=== PATIENT | male | born 1970 | race Caucasian/White ===

== ENCOUNTER → 2019-11-01 13:43 | Outpatient (BNVA) | payer MEDICARE, SELFPAY | PROVIDERS: Visit Provider Nurse Practitioner Family | DX: J02.9 Acute pharyngitis, unspecified (principal) | CPT/HCPCS: 87070; 87880 ==

== ENCOUNTER → 2019-11-02 11:15 | Outpatient (BNVA) | payer MEDICARE, SELFPAY | PROVIDERS: Visit Provider Nurse Practitioner Family | DX: J02.9 Acute pharyngitis, unspecified (principal); J02.0 Streptococcal pharyngitis | CPT/HCPCS: 87070 ==

== ENCOUNTER 2020-01-03 11:02 | Emergency (ER) | payer MEDICARE, SELFPAY ==
[2020-01-03] VITALS (7 sets, daily range): BP systolic 120–140; BP diastolic 72–85; PULSE 67–82; RESP 18–20; TEMP 36.8; O2SAT 93–95; BMI 31.1
--- NOTE | 2020-01-03 11:12 | ECG_ITS ---
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 Measurements Intervals [place] Rate: 78 P: 37 MN: 217 QRS: 38 QRSD: 94 T: 69 QT: 388 QTc: 443 Interpretive Statements SINUS RHYTHM WITH SINUS ARRHYTHMIA WITH FIRST DEGREE AV BLOCK SEPTAL MYOCARDIAL INFARCTION , OF INDETERMINATE AGE [40+ ms Q WAVE IN V1/V2] No previous ECG available for comparison Electronically Signed On 01-03-2020 18:27:55 CDT by Caitlin Diaz M.D. [id number]
--- NOTE | 2020-01-03 11:12 | XRR_ITS ---
PROCEDURE INFORMATION: Exam: XR Chest, 1 View Exam date and time: 01/03/2020 11:41 AM Age: 49 years old Clinical indication: Left-sided chest pain; Prior surgery; Surgery date: 6+ months; Surgery type: Aortic valve replacent TECHNIQUE: Imaging protocol: XR of the chest Views: 1 view. COMPARISON: No relevant prior studies available. FINDINGS: Tubes, catheters and devices: Atrioventricular pacemaker. Lungs: No acute airspace disease. Pleural space: No pleural effusion. Heart/Mediastinum: Aortic valve replacement. No cardiomegaly. Bones/joints: Median sternotomy. XR/XR chest 1V portable [id number] IMPRESSION: No acute airspace or pleural disease.
[2020-01-03 11:19] LABS: Basophils # 0.1 10^3/uL (0.0-0.1); Basophils % 0.8 %; Eosinophils # 0.2 10^3/uL (0.0-0.8); Eosinophils % 2.2 %; Hematocrit 47.6 % (42.0-52.0); Hemoglobin 15.5 g/dL (11.7-16.6); Lymphocytes # 2.8 10^3/uL (0.8-4.8); Lymphocytes % 36.4 %; Mean Corpuscular HGB Conc 32.6 g/dL (30.0-36.0); Mean Corpuscular Hemoglobin 29.2 pg (28.0-34.0); Mean Corpuscular Volume 89.6 fL (80-94); Mean Platelet Volume 10.6 fL (7.4-10.4); Monocytes # 0.7 10^3/uL (0.2-0.9); Monocytes % 8.6 %; Neutrophils % 51.7 %; Nucleated Red Blood Cells % 0 %; Platelet Count 238 10^3/cmm (130-400); Red Blood Count 5.31 10^6/uL (4.1-5.3); Red Cell Distribution Width 13.1 % (12.1-15.1); White Blood Count 7.7 10^3/uL (4.0-10.0)
[2020-01-03] MEDS: aspirin 81 mg Chew Tablet 324 MG PO (11:27)
[2020-01-03] MEDS: sodium chloride 0.9% 500 ML 999 ML IV (11:27)
[2020-01-03] MEDS: nitroglycerin 0.4 mg sublingual Tablet SUBLINGUAL (11:27)
[2020-01-03 11:29] LABS: INR 1.19 (0.8-1.2)
[2020-01-03 11:35] LABS: Alanine Aminotransferase 39 U/L (0-41); Albumin Level 4.3 g/dL (3.5-5.2); Alkaline Phosphatase 81 IU/L (40-130); Anion Gap 15.5 (5-19); Aspartate Amino Transferase 37 U/L (0-40); Blood Urea Nitrogen 8 mg/dL (6-20); Calcium 10.1 mg/dL (8.5-10.5); Carbon Dioxide 28 mmol/L (22-29); Chloride 94 mmol/L (98-107); Globulin 3.4 g/dL (1.3-4.6); Glomerular Filtration Rate 102.7 mL/min (90-130); Glucose 347 mg/dL (65-115); Lipase 17 U/L (13-60); Osmolality Calculated 288 mOsm/kg (285-295); Potassium 3.5 mmol/L (3.5-5.1); Sodium 134 mmol/L (136-145); Total Bilirubin 0.6 mg/dL (0.15-1.2); Total Protein 7.7 g/dL (6.6-8.7)
--- NOTE | 2020-01-03 11:36 | W.ED.CHESTPA ---
HPI - Chest Pain General: Chief Complaint: Chest Pain Stated Complaint: chest pain Time Seen by Provider: 01/03/20 11:12 History of Present Illness: HPI narrative: Mr. Rosa is a nice 49-year-old male who comes in complaining of intermittent chest pain since yesterday. He has the pain at rest but notes that it is worse when he lifts or does anything with his chest. He describes the pain as a pressure. He denies shortness of breath, but does have nausea. Denies any vomiting but last night had diaphoresis that lasted a good portion of the evening.. He is unaware of any other aggravating or alleviating factors. Patient states his blood pressure was significantly elevated yesterday as well. He denies any other complaints or concerns. This time he states his pain is about a 3 or 4 out of 10. Associated symptoms: Reports nausea; Deny abdominal pain, diaphoresis, dyspnea, fever(s), palpitations, syncope or vomiting Review of Systems Const: Denies: fever(s), chills, body aches, fatigue, malaise or diaphoresis Eyes: Denies: change in vision, blurry vision, blind spots, photophobia, eye discharge or eye redness ENMT: Denies: throat pain, odynophagia, hoarseness, swelling of lips/tongue, oral sores, ear or mastoid pain, ear discharge, change in hearing or nasal discharge Card: Reports: chest pain; Denies: palpitations, irregular heart rhythm, edema, lightheadedness, syncope, pre-syncope, dyspnea on exertion or orthopnea Resp: Denies: dyspnea, productive cough, non-productive cough, wheezing, hemoptysis or chest congestion GI: Reports: nausea; Denies: abdominal pain, vomiting, hematemesis, coffee ground emesis, heartburn, diarrhea, constipation, GI cramping, hematochezia or melena : Denies: flank pain, dysuria, urinary frequency, urinary urgency or hematuria Musc: Denies: neck pain, back pain, extremity pain, extremity swelling, joint pain, joint swelling, joint redness, joint warmth or joint stiffness Skin/Breast: Denies: rash, pruritus, erythema, skin tenderness or jaundice Neuro: Denies: headache(s), numbness in extremities, weakness in extremities, sensory changes, lack of coordination, difficulty walking, dizziness, vertigo, confusion, Slurred speech present or seizure-like activity Ej/Lymph: Denies: easy bruising, easy bleeding, petechiae, purpura or enlarged lymph nodes All/Imm: Denies: urticaria, throat swelling, tongue swelling, facial swelling or acute wheezing PFSH ED PFSH: Medical History (Updated 01/03/20 @ 15:19 by Aubrie Spence) Aortic stenosis DM type 2 (diabetes mellitus, type 2) Hyperlipidemia Hypertension Surgical History (Updated 01/03/20 @ 15:19 by Aubrie Spence) Aortic valve replaced Social History Smoking and tobacco status: never smoked Second hand smoke exposure: No Physical Exam Const: COMMON NORMALS: no acute distress, patient oriented x3, no limitations, healthy appearing and well nourished GENERAL APPEARANCE: cooperative, well kempt and well developed HENMT: COMMON NORMALS: normocephalic, atraumatic, external ears normal, EAC's normal and Normal external nose present HEAD & SCALP: normal to inspection, normocephalic and atraumatic FACE & SINUS: normal facial exam and face symmetric NOSE: Normal external nose present and Normal nares present EXTERNAL EAR: Yes external ears normal EXTERNAL AUDITORY CANAL: EAC's normal MOUTH: Normal oral and palatal mucosa present, lip normal and tongue normal Eye: COMMON NORMALS: Equal, round and reactive pupils present and conjunctivae normal GENERAL EYE: appearance normal, both eyes and all related structures ALIGNMENT: Yes alignment normal PERIORBITAL: periorbital findings normal EYELID: eyelids normal CONJUNCTIVA: Yes conjunctivae normal SCLERA: sclerae normal PUPIL: Yes Equal, round and reactive pupils present Neck/C-Spine: COMMON NORMALS: full ROM, no lymphadenopathy, supple, no meningeal signs and no JVD GENERAL: Yes normal visual inspection and Yes trachea midline Chest: COMMONS NORMALS: normal inspection of the chest and normal palpation of entire chest wall Resp: COMMON NORMALS: normal respiratory effort, No retractions and No use of accessory muscles EFFORT & INSPECTION: Yes able to speak in complete sentences and Yes symmetric chest movement AUSCULTATION: no crackles, no rales, no rhonchi and no wheezes Cardio: COMMON NORMALS: no JVD, regular rate, regular rhythm, S1 normal heart sound present and S2 normal heart sound present RATE: regular rate RHYTHM: regular rhythm HEART SOUNDS: S1 normal heart sound present, S2 normal heart sound present, no click, no gallops, Murmur heart sound present systolic, no rubs and abnormal split S2 GI: COMMON NORMALS: Soft to palpation and No hepatosplenomegaly present PALPATION: Yes Soft to palpation, No Tenderness to palpation present (GI), No Guarding due to palpation present (GI), No Rigid due to palpation, Yes No hepatosplenomegaly present, No Hernia present, No Palpable mass present and No Pulsatile mass present : COMMON NORMALS: Yes no CVA tenderness BLADDER/KIDNEY EXAM: Yes no CVA tenderness Back/Pelvis: COMMON NORMALS: no CVA tenderness, thoracic and lumbar spine normal to inspection, no thoracic nor lumbar tenderness and thoraco-lumbar ROM normal Extremity: COMMON NORMALS: normal to inspection, full ROM, capillary refill normal, no joint enlargement, no clubbing, cyanosis or edema and no calf tenderness Neuro: COMMON NORMALS: patient oriented x3, CN's II-XII intact bilaterally, moves all extremities, no focal motor deficits and no sensory deficits noted MENINGEAL SIGNS: Yes no meningeal signs SPEECH: speech normal Psych: COMMON NORMALS: mental status grossly normal, Normal thought process present, cooperative, normal affect, speech normal and activity/motor behavior normal APPEARANCE: Yes well kempt SPEECH: Yes normal speech THOUGHT PROCESS: Normal thought process present Skin: COMMON NORMALS: no rashes or lesions noted, turgor normal, no jaundice, no petechiae and no mottling GENERAL SKIN EXAM: no rashes or lesions noted and turgor normal Course ED course: 1739 -patient is still pain-free. He has been accepted at [facility] we are still waiting for a bed number. His EKGs have been unchanging. His troponins have not been escalating. 2128 -patient had a mild recurrence of his chest discomfort. EKG is unremarkable. Still awaiting a room number from [facility] for transfer. Vital Signs: Vital signs: Vital Signs Temperature 98.3 F 01/03/20 11:11 Pulse Rate 80 01/03/20 18:08 Respiratory Rate 18 01/03/20 18:08 Blood Pressure 127/72 01/03/20 18:08 Pulse Oximetry 94 01/03/20 18:08 MDM - Chest Pain MDM Narrative: Medical decision making narrative: The case was reviewed with Dr. Ramos the cardiothoracic surgeon on-call at [facility] and he thinks the patient should be evaluated there as she cannot determine from my report what is going on with the patient's graft. I reviewed this with the patient and he is in agreement. I then reviewed the case with Dr. Cohen the automatic silk screen printer on-call and she is the formal accepting physician. She would like me to give the patient a dose of Lovenox. The patient will have to go by ground as no air ambulance services flying at this time secondary to weather. The patient understands that a closer facility would be available in [place] but he declines this and wants to go to [place] as that is where all of his surgeons and medical team are. He accepts the risk of the increased transport time. Lab Data: Attestation: I reviewed the patient's lab results. Labs: Lab Results 01/03/20 01/03/20 01/03/20 Range/Units 11:13 11:13 11:13 WBC 7.7 (4.0-10.0) 10^3/ uL RBC 5.31 H (4.1-5.3) 10^6/u L Hgb 15.5 (11.7-16.6) g/dL Hct 47.6 (42.0-52.0) % MCV 89.6 (80-94) fL MCH 29.2 (28.0-34.0) pg MCHC 32.6 (30.0-36.0) g/dL RDW 13.1 (12.1-15.1) % Plt Count 238 (130-400) 10^3/c mm MPV 10.6 H (7.4-10.4) fL Neut % (Auto) 51.7 % Lymph % (Auto) 36.4 % [place] % (Auto) 8.6 % Eos % (Auto) 2.2 % Baso % (Auto) 0.8 % Neut # (Auto) 4.0 (1.8-7.7) 10^3/u L Lymph # (Auto) 2.8 (0.8-4.8) 10^3/u L [place] # (Auto) 0.7 (0.2-0.9) 10^3/u L Eos # (Auto) 0.2 (0.0-0.8) 10^3/u L Baso # (Auto) 0.1 (0.0-0.1) 10^3/u L Nucleated RBC % (a uto) 0 % Nucleated RBCs # 0.0 /100WBC PT 15.50 H (10.5-13.3) SECO NDS INR 1.19 (0.8-1.2) Sodium 134 L (136-145) mmol/L Potassium 3.5 (3.5-5.1) mmol/L Chloride 94 L (98-107) mmol/L Carbon Dioxide 28 (22-29) mmol/L Anion Gap 15.5 (5-19) BUN 8 (6-20) mg/dL Creatinine 0.8 (0.7-1.2) mg/dL GFR Calculation 102.7 (90-130) mL/min Glucose 347 H (65-115) mg/dL Calculated Osmolal ity 288 (285-295) mOsm/k g Calcium 10.1 (8.5-10.5) mg/dL Total Bilirubin 0.6 (0.15-1.2) mg/dL AST 37 (0-40) U/L ALT 39 (0-41) U/L Alkaline Phosphata se 81 (40-130) IU/L Troponin I 6 Hour (0-15) ng/L Troponin I Hi Sens Del (0-12) ng/L Troponin T Baselin e (0-15) ng/L Troponin T 120 Min [place] (0-15) ng/L Delta Troponin T (0-10) ABS# Total Protein 7.7 (6.6-8.7) g/dL Albumin 4.3 (3.5-5.2) g/dL Globulin 3.4 (1.3-4.6) g/dL Lipase 17 (13-60) U/L Urine Color (Yellow) Urine Appearance (CLEAR) Urine pH (5-7) Ur Specific Gravit y (1.005-1.030) Urine Protein (Negative) Urine Glucose (UA) (Normal) Urine Ketones (Negative) Urine Blood (Negative) Urine Nitrate (Negative) Urine Bilirubin (NEGATIVE) Urine Urobilinogen (Negative) mg/dL Ur Leukocyte Stacia ase (Negative) Urine RBC (0-2) /hpf Urine WBC (0-5) /hpf Ur Squamous Epith Cells (0-5) Urine Bacteria (NONE) 01/03/20 01/03/20 01/03/20 Range/Units 11:13 13:07 13:26 WBC (4.0-10.0) 10^3/ uL RBC (4.1-5.3) 10^6/u L Hgb (11.7-16.6) g/dL Hct (42.0-52.0) % MCV (80-94) fL MCH (28.0-34.0) pg MCHC (30.0-36.0) g/dL RDW (12.1-15.1) % Plt Count (130-400) 10^3/c mm MPV (7.4-10.4) fL Neut % (Auto) % Lymph % (Auto) % [place] % (Auto) % Eos % (Auto) % Baso % (Auto) % Neut # (Auto) (1.8-7.7) 10^3/u L Lymph # (Auto) (0.8-4.8) 10^3/u L [place] # (Auto) (0.2-0.9) 10^3/u L Eos # (Auto) (0.0-0.8) 10^3/u L Baso # (Auto) (0.0-0.1) 10^3/u L Nucleated RBC % (a uto) % Nucleated RBCs # /100WBC PT (10.5-13.3) SECO NDS INR (0.8-1.2) Sodium (136-145) mmol/L Potassium (3.5-5.1) mmol/L Chloride (98-107) mmol/L Carbon Dioxide (22-29) mmol/L Anion Gap (5-19) BUN (6-20) mg/dL Creatinine (0.7-1.2) mg/dL GFR Calculation (90-130) mL/min Glucose (65-115) mg/dL Calculated Osmolal ity (285-295) mOsm/k g Calcium (8.5-10.5) mg/dL Total Bilirubin (0.15-1.2) mg/dL AST (0-40) U/L ALT (0-41) U/L Alkaline Phosphata se (40-130) IU/L Troponin I 6 Hour (0-15) ng/L Troponin I Hi Sens Del (0-12) ng/L Troponin T Baselin e 16 H (0-15) ng/L Troponin T 120 Min [place] 15.95 H (0-15) ng/L Delta Troponin T -0.05 L (0-10) ABS# Total Protein (6.6-8.7) g/dL Albumin (3.5-5.2) g/dL Globulin (1.3-4.6) g/dL Lipase (13-60) U/L Urine Color Yellow (Yellow) Urine Appearance Clear (CLEAR) Urine pH 5 (5-7) Ur Specific Gravit y 1.010 (1.005-1.030) Urine Protein Neg (Negative) Urine Glucose (UA) 4+ H (Normal) Urine Ketones Negative (Negative) Urine Blood 3+ H (Negative) Urine Nitrate Negative (Negative) Urine Bilirubin Neg (NEGATIVE) Urine Urobilinogen 1 H (Negative) mg/dL Ur Leukocyte Stacia ase Negative (Negative) Urine RBC 10-15 H (0-2) /hpf Urine WBC None (0-5) /hpf Ur Squamous Epith Cells 0-4 H (0-5) Urine Bacteria Trace (NONE) 01/03/20 Range/Units 17:28 WBC (4.0-10.0) 10^3/ uL RBC (4.1-5.3) 10^6/u L Hgb (11.7-16.6) g/dL Hct (42.0-52.0) % MCV (80-94) fL MCH (28.0-34.0) pg MCHC (30.0-36.0) g/dL RDW (12.1-15.1) % Plt Count (130-400) 10^3/c mm MPV (7.4-10.4) fL Neut % (Auto) % Lymph % (Auto) % [place] % (Auto) % Eos % (Auto) % Baso % (Auto) % Neut # (Auto) (1.8-7.7) 10^3/u L Lymph # (Auto) (0.8-4.8) 10^3/u L [place] # (Auto) (0.2-0.9) 10^3/u L Eos # (Auto) (0.0-0.8) 10^3/u L Baso # (Auto) (0.0-0.1) 10^3/u L Nucleated RBC % (a uto) % Nucleated RBCs # /100WBC PT (10.5-13.3) SECO NDS INR (0.8-1.2) Sodium (136-145) mmol/L Potassium (3.5-5.1) mmol/L Chloride (98-107) mmol/L Carbon Dioxide (22-29) mmol/L Anion Gap (5-19) BUN (6-20) mg/dL Creatinine (0.7-1.2) mg/dL GFR Calculation (90-130) mL/min Glucose (65-115) mg/dL Calculated Osmolal ity (285-295) mOsm/k g Calcium (8.5-10.5) mg/dL Total Bilirubin (0.15-1.2) mg/dL AST (0-40) U/L ALT (0-41) U/L Alkaline Phosphata se (40-130) IU/L Troponin I 6 Hour 16.35 H (0-15) ng/L Troponin I Hi Sens Del 0.35 (0-12) ng/L Troponin T Baselin e (0-15) ng/L Troponin T 120 Min [place] (0-15) ng/L Delta Troponin T (0-10) ABS# Total Protein (6.6-8.7) g/dL Albumin (3.5-5.2) g/dL Globulin (1.3-4.6) g/dL Lipase (13-60) U/L Urine Color (Yellow) Urine Appearance (CLEAR) Urine pH (5-7) Ur Specific Gravit y (1.005-1.030) Urine Protein (Negative) Urine Glucose (UA) (Normal) Urine Ketones (Negative) Urine Blood (Negative) Urine Nitrate (Negative) Urine Bilirubin (NEGATIVE) Urine Urobilinogen (Negative) mg/dL Ur Leukocyte Stacia ase (Negative) Urine RBC (0-2) /hpf Urine WBC (0-5) /hpf Ur Squamous Epith Cells (0-5) Urine Bacteria (NONE) Imaging Data^: CXR: My impression: Slightly widened mediastinum. CT Chest: Radiologist's impression: [address] [place] [address] CT Scan Report Signed Patient: Corby Spaulding Unit #: [id number] : 1970 Age/Sex: 49 / M ADM Date: 01/03/20 Loc: ER Room/Bed: Attending Dr: Ordering Provider/Ordering MD: Aubrie Spence DO Date of Service: 01/03/20 Procedure(s): CT angio chest abdomen pelvis Accession Number(s): [id number] Report Number: [id number] WS: [id number] CTA CHEST, ABDOMEN AND PELVIS WITH AND WITHOUT CONTRAST. HISTORY: Evaluate for dissection TECHNIQUE: CT imaging of the thorax is performed with and without contrast. After noncontrast imaging is performed, CT angiogram is performed during injection of Omnipaque 350; 95 mL IV.. Sagittal and coronal reconstructions, sagittal and coronal MIP imaging is submitted. All CT scans at [facility] use at least one of these dose optimization techniques: automated exposure control; mA and/or kV adjustment per patient size (includes targeted exams where dose is matched to clinical indication); or iterative reconstruction. DLP: 2035.08 mGy.cm COMPARISON: None available. Prior median sternotomy. Prior aortic valve replacement. Dual lead LEFT subclavian pacer. Is a significant amount of artifact through the aortic root. There is a linear area of low- attenuation in the posterior aortic root which may be artifact but a focal dissection cannot be excluded with this amount of motion. There is no extravasation of bladder enlargement. The descending aorta is normal caliber. Great vessels are normal size. Descending aorta and abdominal aorta are normal size with no evidence for dissection or aneurysm. Benign granuloma RIGHT lower lobe. No suspicious pulmonary masses or pneumonia. No pneumothorax or pleural effusion. Interventricular septal hypertrophy in 2.5 cm. Severe low attenuation throughout the liver from hepatic steatosis. Portal vein is normal size. Gallbladder is contracted. Spleen is normal size negative pancreas and adrenal glands. No renal obstruction or mass. No free fluid or adenopathy in the abdomen or pelvis. Very small fat-containing umbilical hernia. The appendix is normal. Mild LEFT convex curvature of the lumbar spine. No osteoblastic or osteolytic bone disease. CT/CT angio chest abdomen pelvis IMPRESSION: 1. Significant artifact at the aortic root. Focal dissection cannot be excluded. The remaining thoracic, abdominal, pelvic aortas are negative for aneurysm or dissection. 2. Hepatic steatosis. 3. Contracted gallbladder may be due to nonfasting. 4. No pneumonia. 5. Interventricular septal hypertrophy at 2.5 cm. Dictated By: Sosa Pedersen DO Signed By: Sosa Pedersen DO Signed Date/Time: 01/03/20 1241 DD/ 1229 EKG Data^: EKG 1: Attestation: I personally reviewed and interpreted this EKG as follows: EKG interpretation date: 01/03/20 EKG interpretation time: 11:16 Interpretation: Normal sinus rhythm at 70 beats a minute, LVH, nonspecific ST and T wave changes. No old for comparison. EKG findings of LVH with no acute ST elevation findings concerning for ACS confirm with Dr. Pina. EKG 2: Attestation: I personally reviewed and interpreted this EKG as follows: EKG interpretation date: 01/03/20 EKG interpretation time: 13:18 Interpretation: Normal sinus rhythm at 70 beats a minute, first-degree AV block, normal intervals. LVH. ST segment depression in 1 and aVL. Unchanged from previous. EKG 3: Attestation: I personally reviewed and interpreted this EKG as follows: EKG interpretation date: 01/03/20 EKG interpretation time: 17:41 Interpretation: Normal sinus rhythm at 69 beats a minute, no blocks, normal intervals, LVH, ST segment depression in 1 and aVL. Unchanged from previous. EKG 4: Attestation: I personally reviewed and interpreted this EKG as follows: EKG interpretation date: 01/03/20 EKG interpretation time: 21:29 Interpretation: Normal sinus rhythm with first-degree AV block, ventricular rate 69 beats a minute, ST segment depressions in 1 and aVL unchanged. LVH present V1 and V2 unchanged from previous. Otherwise unchanged from previous. Discharge Plan Discharge Patient Disposition: Xfer Short-Term Hosp Clinical Impression: Aortic valve replaced Chest pain Qualifiers: Chest pain type: unspecified Qualified Code(s): R07.9 - Chest pain, unspecified Condition: Stable Coding Level of Care Code ED Operating Room Rn for Chg Fwd Exam Comprehensive
[2020-01-03 11:39] LABS: Troponin(5th) Baseline 16 ng/L (0-15)
--- NOTE | 2020-01-03 11:44 | CT_ITS ---
WS: [id number] CTA CHEST, ABDOMEN AND PELVIS WITH AND WITHOUT CONTRAST. HISTORY: Evaluate for dissection TECHNIQUE: CT imaging of the thorax is performed with and without contrast. After noncontrast imaging is performed, CT angiogram is performed during injection of Omnipaque 350; 95 mL IV.. Sagittal and c oronal reconstructions, sagittal and coronal MIP imaging is submitted. All CT scans at [facility] use at least one of these dose optimization techniques: automated exposure control; mA and/o r kV adjustment per patient size (includes targeted exams where dose is matched to clinical indicatio n); or iterative reconstruction. DLP: 2035.08 mGy.cm COMPARISON: None available. Prior median sternotomy. Prior aortic valve replacement. Dual lead LEFT subclavian pacer. Is a significant amount of artifact through the aortic root. There is a linear area of low-attenuatio n in the posterior aortic root which may be artifact but a focal dissection cannot be excluded with t his amount of motion. There is no extravasation of bladder enlargement. The descending aorta is kezia l caliber. Great vessels are normal size. Descending aorta and abdominal aorta are normal size with n o evidence for dissection or aneurysm. Benign granuloma RIGHT lower lobe. No suspicious pulmonary mas ses or pneumonia. No pneumothorax or pleural effusion. Interventricular septal hypertrophy in 2.5 cm. Severe low attenuation throughout the liver from hepatic steatosis. Portal vein is normal size. Gallb ladder is contracted. Spleen is normal size negative pancreas and adrenal glands. No renal obstructio n or mass. No free fluid or adenopathy in the abdomen or pelvis. Very small fat-containing umbilical hernia. The appendix is normal. Mild LEFT convex curvature of the lumbar spine. No osteoblastic or osteolytic bone disease. CT/CT angio chest abdomen pelvis IMPRESSION: 1. Significant artifact at the aortic root. Focal dissection cannot be exclude d. The remaining thoracic, abdominal, pelvic aortas are negative for aneurysm or dissection. 2. Hepatic steatosis. 3. Contracted gallbladder may be due to nonfasting. 4. No pneumonia. 5. Interventricular septal hypertrophy at 2.5 cm.
[2020-01-03] MEDS: iohexol 350 mg/mL 100 mL Btl IV (12:12)
[2020-01-03] MEDS: acetaminophen 500 mg Tablet 1000 MG PO (12:34)
--- NOTE | 2020-01-03 13:12 | ECG_ITS ---
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 Measurements Intervals [place] Rate: 70 P: 24 [place]: 230 QRS: 24 QRSD: 85 T: 83 QT: 402 QTc: 436 Interpretive Statements SINUS RHYTHM WITH FIRST DEGREE AV BLOCK SEPTAL MYOCARDIAL INFARCTION , OF INDETERMINATE AGE [40+ ms Q WAVE IN V1/V2] ST DEPRESSION, CONSIDER SUBENDOCARDIAL INJURY [0.1+ mV ST DEPRESSION] Compared to ECG 01/03/2020 11:16:53 ST (T wave) deviation now present Sinus arrhythmia no longer present Myocardial infarct finding still present Electronically Signed On 01-03-2020 18:56:10 CDT by Caitlin Diaz M.D. [id number]
[2020-01-03 13:27] LABS: Troponin 5 2HR 15.95 ng/L (0-15)
[2020-01-03 13:29] LABS: Troponin 5 2HR Delta -0.05 ABS# (0-10)
[2020-01-03 13:40] LABS: Bilirubin Urine Neg (NEGATIVE); Blood Urine 3+ (Negative); Glucose Urine UA 4+ (Normal); Ketones Urine Negative (Negative); Leukocyte Esterase Urine Negative (Negative); Nitrate Urine Negative (Negative); Protein Urine Neg (Negative); Urine Appearance Clear (CLEAR); Urine Color Yellow (Yellow); Urobilinogen Urine 1 mg/dL (Negative); pH Urine 5 (5-7)
[2020-01-03 13:57] LABS: Add Urine Culture? Yes; Bacteria Urine TRACE; Squamous Epithelial Cell Urine 0-4 (0-5)
[2020-01-03] MEDS: enoxaparin 100 mg/mL Syringe SUBCUT (15:22)
--- NOTE | 2020-01-03 17:12 | ECG_ITS ---
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 Measurements Intervals [place] Rate: 69 P: -1 [place]: 189 QRS: 13 QRSD: 93 T: 106 QT: 407 QTc: 437 Interpretive Statements SINUS RHYTHM WITH SINUS ARRHYTHMIA SEPTAL MYOCARDIAL INFARCTION , OF INDETERMINATE AGE [40+ ms Q WAVE IN V1/V2] PROBABLE INFERIOR MYOCARDIAL INFARCTION , PROBABLY OLD [35 ms Q WAVE IN II/aVF] MODERATE T-WAVE ABNORMALITY, CONSIDER LATERAL ISCHEMIA Compared to ECG 01/03/2020 13:18:34 T-wave abnormality now present Possible ischemia now present First degree AV block no longer present ST (T wave) deviation no longer present Myocardial infarct finding still present Electronically Signed On 01-03-2020 18:33:50 CDT by Caitlin Diaz M.D. [id number]
[2020-01-03 17:53] LABS: Troponin 5 6HR 16.35 ng/L (0-15); Troponin 5 6HR Delta 0.35 ng/L (0-12)
[2020-01-03] MEDS: morphine 4 mg/mL SDV 1 mL IVP (21:32)
--- NOTE | 2020-01-03 23:50 | PC.NURSE ---
[place] and snacks provided to Pt. and his . Continues to await bed assignment. Without complaint. Without distress.
[2020-01-04] VITALS (8 sets, daily range): BP systolic 129–136; BP diastolic 74–81; PULSE 60–74; RESP 16–23; O2SAT 91–98
[2020-01-04] MEDS: morphine 4 mg/mL SDV 1 mL IVP ×4 (01:32→14:19)
--- NOTE | 2020-01-04 06:24 | PC.NURSE ---
Pt. placed on hospital bed for comfort. Continues to await bed assignment at [facility]
--- NOTE | 2020-01-04 06:38 | PC.NURSE ---
Breakfast ordered for Pt.
--- NOTE | 2020-01-04 07:06 | PC.NURSE ---
Shift change report taken.
[2020-01-04 12:27] LABS: INR 1.29 (0.8-1.2)
[2020-01-04] MEDS: enoxaparin 100 mg/mL Syringe SUBCUT (12:54)
[2020-01-04 16:45] LABS: Glucose Point of Care 233 mg/dL (70-110)
[2020-01-04] MEDS: insulin glargine 100 units/1 mL 28 UNIT SUBCUT (17:35)
--- NOTE | 2020-01-04 19:09 | ECG_ITS ---
[facility] Test Date: 2020-01-04 Pat Name: Corby Spaulding Department: Room: Gender: Male Student Life Coordinator: : 1970 Requested By: Aubrie Ricketts Order Number: [id number] Robbie MD: Caitlin Diaz M.D. Measurements Intervals [place] Rate: 68 P: 15 ND: 177 QRS: 47 QRSD: 89 T: 87 QT: 386 QTc: 411 Interpretive Statements SINUS RHYTHM ANTEROSEPTAL MYOCARDIAL INFARCTION , OF INDETERMINATE AGE Compared to ECG 01/03/2020 17:41:58 Sinus arrhythmia no longer present T-wave abnormality no longer present Possible ischemia no longer present Myocardial infarct finding still present Electronically Signed On 01-05-2020 17:10:31 CDT by Caitlin Diaz M.D. [email or web address] [email or web address].[employer]/store/[id number] f
[2020-01-04 19:36] LABS: Anion Gap 13.1 (5-19); Blood Urea Nitrogen 6 mg/dL (6-20); Calcium 9.9 mg/dL (8.5-10.5); Carbon Dioxide 29 mmol/L (22-29); Chloride 97 mmol/L (98-107); Glomerular Filtration Rate 102.7 mL/min (90-130); Glucose 236 mg/dL (65-115); Magnesium 1.6 mg/dL (1.7-2.3); Osmolality Calculated 283 mOsm/kg (285-295); Potassium 4.1 mmol/L (3.5-5.1); Sodium 135 mmol/L (136-145)
[2020-01-04 19:40] LABS: Troponin(5th) Baseline 14 ng/L (0-15)
[2020-01-04] MEDS: magnesium sulfate premix 2 GM/50 ML PIGGYBACK IV (19:50)
[2020-01-04] MEDS: HYDROcodone-acetaminophen 5-325 mg Tablet 10 TAB PO (20:15)
--- NOTE | 2020-01-04 21:09 | ECG_ITS ---
[facility] Test Date: 2020-01-04 Pat Name: Corby Spaulding Department: Room: Gender: Male Center Director Lead Teacher: : 1970 Requested By: Aubrie Ricketts Order Number: [id number] Robbie MD: Caitlin Diaz M.D. Measurements Intervals [place] Rate: 61 P: 14 SD: 177 QRS: 39 QRSD: 112 T: 85 QT: 422 QTc: 427 Interpretive Statements SINUS RHYTHM ANTEROSEPTAL MYOCARDIAL INFARCTION , OF INDETERMINATE AGE Compared to ECG 01/04/2020 14:19:29 No significant changes Electronically Signed On 01-05-2020 17:12:41 CDT by Caitlin Diaz M.D. [email or web address] regional medical centerTrace Technologiesashtabula county medical centerSeismo-Shelf/store/NU/[id number]/[id number] f
[2020-01-04 21:35] LABS: Troponin 5 2HR 14.72 ng/L (0-15); Troponin 5 2HR Delta 0.72 ABS# (0-10)
== END 2020-01-04 21:55 | disposition short-term general hospital (02) ==
PROVIDERS: Emergency Provider Emergency Medicine
DX: R07.9 Chest pain, unspecified (principal); Z95.2 Presence of prosthetic heart valve; E11.9 Type 2 diabetes mellitus without complications; I10 Essential (primary) hypertension; E78.5 Hyperlipidemia, unspecified
CPT/HCPCS: 12345; 36415; 36416; 71045; 71275; 74174; 80048; 80053; 81001; 82962; 83690; 83735; 84484; 85025; 85610; 87086; 93005; 96360; 96365; 96366; 96372; 96375; 96376; 99284; 99285; J0131; J1650; J1815; J2270; J3475; J7040; Q9967

== ENCOUNTER → 2020-01-26 08:49 | Outpatient (BNVA) | payer MEDICARE, SELFPAY | PROVIDERS: Visit Provider Nurse Practitioner Family | DX: E11.9 Type 2 diabetes mellitus without complications (principal); Z12.5 Encounter for screening for malignant neoplasm of prostate; R35.0 Frequency of micturition; N52.9 Male erectile dysfunction, unspecified | CPT/HCPCS: 80048; 81000; G0103 ==

== ENCOUNTER → 2020-01-31 11:31 | Outpatient (BNVA) | payer MEDICARE, SELFPAY | PROVIDERS: PCP Nurse Practitioner Family; Visit Provider Nurse Practitioner Family | DX: R31.9 Hematuria, unspecified (principal) | CPT/HCPCS: 80053; 82044; 88112 ==

== ENCOUNTER → 2020-02-03 10:44 | Outpatient (BNVA) | payer MEDICARE, SELFPAY | PROVIDERS: PCP Nurse Practitioner Family; Referring Provider Nurse Practitioner Family; Visit Provider Urology | DX: R31.9 Hematuria, unspecified (principal); R33.8 Other retention of urine; R31.21 Asymptomatic microscopic hematuria; N52.1 Erectile dysfunction due to diseases classified elsewhere | CPT/HCPCS: 81001 ==

== ENCOUNTER 2020-06-20 18:02 | Observation (INO) | payer MEDICARE, SELFPAY ==
[2020-06-20] VITALS (11 sets, daily range): BP systolic 108–159; BP diastolic 63–92; PULSE 76–96; RESP 16–22; TEMP 36.2–36.6; O2SAT 91–100; BMI 31.1
--- NOTE | 2020-06-20 18:12 | XR_ITS ---
WS: [id number] XR chest 1V portable [id number] REASON FOR EXAM: cp FINDINGS: The chest is unchanged compared to 01/03/2020. Battery pack over the left chest with leads in the left subclavian vein to the right atrium and right ventricular apex. The heart is mildly enlarged. Previous sternotomy. No active pulmonary parenchymal or pleural disease. No significant abnormality of the bony thorax. XR/XR chest 1V portable [id number] IMPRESSION: Stable chest with no acute abnormality.
--- NOTE | 2020-06-20 18:12 | ECG_ITS ---
[facility] Test Date: 2020-06-20 Pat Name: Corby Spaulding Department: Room: Gender: Male Measuring Machine Tender: : 1970 Requested By: Shana Zuleta Order Number: [id number] Robbie MD: Caitlin Diaz M.D. Measurements Intervals [place] Rate: 92 P: -3 IA: 174 QRS: 36 QRSD: 97 T: 99 QT: 350 QTc: 433 Interpretive Statements SINUS RHYTHM POSSIBLE LEFT ATRIAL ENLARGEMENT [-0.1mV P WAVE IN V1/V2] PROBABLE INFERIOR MYOCARDIAL INFARCTION [35 ms Q WAVE IN II/aVF], PROBABLY OLD ANTEROSEPTAL MYOCARDIAL INFARCTION [40+ ms Q WAVE IN V1-V4], OF INDETERMINATE AGE MODERATE T-WAVE ABNORMALITY, CONSIDER LATERAL ISCHEMIA [-0.1+ mV T WAVE IN I/aVL/V5/V6] Compared to ECG 01/04/2020 19:24:55 T-wave abnormality now present Possible ischemia now present Myocardial infarct finding still present Electronically Signed On 06-20-2020 21:02:00 MARKET DEVELOPMENT ANALYST by Caitlin Diaz M.D. [email or web address] Incashtabula county medical center.[employer]/store/NU/[id number] antoine
--- NOTE | 2020-06-20 19:06 | ED_ITS ---
HPI - Chest Pain General: Chief Complaint: Chest Pain Stated Complaint: DIFFICULTY BREATHING, CP Time Seen by Provider: 06/20/20 18:33 Source: patient Mode of arrival: ambulatory Limitations: no limitations History of Present Illness: HPI narrative: Mr. Rosa is a very nice 49-year-old male who comes in with a complaint of chest pressure, vomiting, diarrhea and fever. He states his symptoms began yesterday and have worsened. His fever has been up to 100.1. He denies any orthopnea but does have dyspnea on exertion. He describes his dyspnea is more like a chest pressure or fullness in his chest. He states he feels like his fluid is building up in his chest again when he has had heart failure in the past. Patient has an occasional cough that is nonproductive. Patient does not believe he is been exposed to anyone else with similar symptoms. He otherwise denies any complaints or concerns. Associated symptoms: Reports dyspnea, nausea and vomiting; Deny abdominal pain, diaphoresis, fever(s), palpitations or syncope Review of Systems Const: Denies: fever(s), chills, body aches, fatigue, malaise or diaphoresis Eyes: Denies: change in vision, blurry vision, photophobia, eye discomfort, eye discharge, eye redness or yellow eyes ENMT: Denies: throat pain, odynophagia, hoarseness, swelling of lips/tongue, ear or mastoid pain, ear discharge, change in hearing or nasal discharge Card: Reports: chest pain; Denies: palpitations, irregular heart rhythm, edema, lightheadedness, syncope, pre-syncope, dyspnea on exertion or orthopnea Resp: Reports: dyspnea and non-productive cough; Denies: productive cough, wheezing, hemoptysis or chest congestion GI: Reports: nausea, vomiting and diarrhea; Denies: abdominal pain, hematemesis, coffee ground emesis, heartburn, constipation, GI cramping, hematochezia or melena : Denies: flank pain, dysuria, urinary frequency, urinary urgency or hematuria Musc: Denies: neck pain, back pain, extremity pain, extremity swelling, joint pain, joint swelling, joint redness, joint warmth or joint stiffness Skin/Breast: Denies: rash, pruritus, erythema, skin pain or skin tenderness Neuro: Denies: headache(s), numbness in extremities, weakness in extremities, sensory changes, lack of coordination, difficulty walking, dizziness, vertigo, confusion, Slurred speech present or seizure-like activity Ej/Lymph: Denies: easy bruising, easy bleeding, petechiae, purpura or enlarged lymph nodes All/Imm: Denies: urticaria, throat swelling, tongue swelling, facial swelling or acute wheezing PFSH ED PFSH: Medical History (Updated 06/20/20 @ 21:41 by Aubrie Spence) Aortic stenosis Asymptomatic microscopic hematuria DM type 2 (diabetes mellitus, type 2) Erectile dysfunction Hematuria Hyperlipidemia Hypertension Surgical History Aortic valve replaced Social History Smoking and tobacco status: never smoked Second hand smoke exposure: No Alcohol intake: former Adopted: No Caregiver/support person: No Lives independently: No Household members: spouse Marital status: Current occupational status: disabled Physical Exam Const: COMMON NORMALS: no acute distress, patient oriented x3, no limitations and alert GENERAL APPEARANCE: cooperative HENMT: COMMON NORMALS: normocephalic, atraumatic, external ears normal, EAC's normal and Normal external nose present HEAD & SCALP: normal to inspection, normocephalic and atraumatic FACE & SINUS: normal facial exam and face symmetric NOSE: Normal external nose present and Normal nares present EXTERNAL EAR: Yes external ears normal EXTERNAL AUDITORY CANAL: EAC's normal MOUTH: Normal oral and palatal mucosa present, lip normal and tongue normal Eye: COMMON NORMALS: Equal, round and reactive pupils present and conjunctivae normal GENERAL EYE: appearance normal, both eyes and all related structures ALIGNMENT: Yes alignment normal PERIORBITAL: periorbital findings normal EYELID: eyelids normal CONJUNCTIVA: Yes conjunctivae normal SCLERA: sclerae normal PUPIL: Yes Equal, round and reactive pupils present Neck/C-Spine: COMMON NORMALS: full ROM, no lymphadenopathy, supple, no meningeal signs and no JVD GENERAL: Yes normal visual inspection and Yes trachea midline Chest: COMMONS NORMALS: normal inspection of the chest and normal palpation of entire chest wall Resp: COMMON NORMALS: normal respiratory effort, No retractions, No use of accessory muscles and clear to auscultation bilaterally EFFORT & INSPECTION: Yes able to speak in complete sentences and Yes symmetric chest movement AUSCULTATION: clear to auscultation bilaterally, no crackles, no rales, no rhonchi and no wheezes Cardio: COMMON NORMALS: no JVD, regular rate, regular rhythm, S1 normal heart sound present and S2 normal heart sound present RATE: regular rate RHYTHM: regular rhythm HEART SOUNDS: S1 normal heart sound present, S2 normal heart sound present, no click, no gallops, Murmur heart sound present systolic (Click heard with mechanical heart valve) and no rubs GI: COMMON NORMALS: Soft to palpation and No hepatosplenomegaly present PALPATION: Yes Soft to palpation, No Tenderness to palpation present (GI), No Guarding due to palpation present (GI), No Rigid due to palpation, Yes No hepatosplenomegaly present, No Hernia present, No Palpable mass present and No Pulsatile mass present : COMMON NORMALS: Yes no CVA tenderness BLADDER/KIDNEY EXAM: Yes no CVA tenderness Back/Pelvis: COMMON NORMALS: no CVA tenderness, thoracic and lumbar spine normal to inspection, no thoracic nor lumbar tenderness and thoraco-lumbar ROM normal Extremity: COMMON NORMALS: normal to inspection, full ROM, capillary refill normal, no joint enlargement, no clubbing, cyanosis or edema and no calf tenderness Neuro: COMMON NORMALS: patient oriented x3, CN's II-XII intact bilaterally, moves all extremities, no focal motor deficits and no sensory deficits noted SENSORIUM/ORIENTATION: Yes alert MENINGEAL SIGNS: Yes no meningeal signs SPEECH: speech normal Psych: COMMON NORMALS: mental status grossly normal, Normal thought process present, cooperative, normal affect, speech normal and activity/motor behavior normal SPEECH: Yes normal speech THOUGHT PROCESS: Normal thought process present Skin: COMMON NORMALS: no rashes or lesions noted, turgor normal, no jaundice, no petechiae and no mottling GENERAL SKIN EXAM: no rashes or lesions noted and turgor normal Course Vital Signs: Vital signs: Vital Signs Temperature 97.2 F L 06/20/20 18:12 Pulse Rate 85 06/20/20 22:02 Respiratory Rate 16 06/20/20 22:02 Blood Pressure 127/80 06/20/20 22:02 Pulse Oximetry 97 06/20/20 22:02 MDM - Chest Pain MDM Narrative: Medical decision making narrative: After much discussion the patient agrees to stay for formal cardiac rule out and possible stress testing. The case was endorsed to Dr. Morfin and he is agreeable to admit for further observation and care. Lab Data: Attestation: I reviewed the patient's lab results. Labs: Lab Results 06/20/20 06/20/20 06/20/20 Range/Units 19:12 19:12 19:12 WBC 9.0 (4.0-10.0) 10^3/ uL RBC 5.14 (4.1-5.3) 10^6/u L Hgb 14.6 (11.7-16.6) g/dL Hct 43.5 (42.0-52.0) % MCV 84.6 (80-94) fL MCH 28.4 (28.0-34.0) pg MCHC 33.6 (30.0-36.0) g/dL RDW 13.4 (12.1-15.1) % Plt Count 271 (130-400) 10^3/c mm MPV 11.1 H (7.4-10.4) fL Neut % (Auto) 58.2 % Lymph % (Auto) 32.6 % [place] % (Auto) 6.8 % Eos % (Auto) 1.4 % Baso % (Auto) 0.8 % Neut # (Auto) 5.22 (1.8-7.7) 10^3/u L Lymph # (Auto) 2.9 (0.8-4.8) 10^3/u L [place] # (Auto) 0.6 (0.2-0.9) 10^3/u L Eos # (Auto) 0.1 (0.0-0.8) 10^3/u L Baso # (Auto) 0.1 (0.0-0.1) 10^3/u L Nucleated RBC % (a uto) 0 % Nucleated RBCs # 0.0 /100WBC PT (12.1-14.9) SECO NDS INR (0.8-1.2) D-Dimer (0-0.59) ug/mIFE U Sodium 131 L (136-145) mmol/L Potassium 4.3 (3.5-5.1) mmol/L Chloride 92 L (98-107) mmol/L Carbon Dioxide 26 (22-29) mmol/L Anion Gap 17.3 (5-19) BUN 8 (6-20) mg/dL Creatinine 1.0 (0.7-1.2) mg/dL GFR Calculation 79.4 L (90-130) mL/min Glucose 417 H (65-115) mg/dL Calculated Osmolal ity 288 (285-295) mOsm/k g Calcium 9.9 (8.5-10.5) mg/dL Total Bilirubin 0.4 (0.15-1.2) mg/dL AST 18 (0-40) U/L ALT 20 (0-41) U/L Alkaline Phosphata se 98 (40-130) IU/L Troponin T Baselin e 14 (0-15) ng/L Troponin T 120 Min [place] (0-15) ng/L Delta Troponin T (0-10) ABS# NT-Pro-B Natriuret Pep 285 H (0-125) pg/mL Total Protein 7.7 (6.6-8.7) g/dL Albumin 4.3 (3.5-5.2) g/dL Globulin 3.4 (1.3-4.6) g/dL SARS-CoV-2 Ag (Rap id) (Negative) 06/20/20 06/20/20 06/20/20 Range/Units 19:12 19:12 19:28 WBC (4.0-10.0) 10^3/ uL RBC (4.1-5.3) 10^6/u L Hgb (11.7-16.6) g/dL Hct (42.0-52.0) % MCV (80-94) fL MCH (28.0-34.0) pg MCHC (30.0-36.0) g/dL RDW (12.1-15.1) % Plt Count (130-400) 10^3/c mm MPV (7.4-10.4) fL Neut % (Auto) % Lymph % (Auto) % [place] % (Auto) % Eos % (Auto) % Baso % (Auto) % Neut # (Auto) (1.8-7.7) 10^3/u L Lymph # (Auto) (0.8-4.8) 10^3/u L [place] # (Auto) (0.2-0.9) 10^3/u L Eos # (Auto) (0.0-0.8) 10^3/u L Baso # (Auto) (0.0-0.1) 10^3/u L Nucleated RBC % (a uto) % Nucleated RBCs # /100WBC PT 20.10 H (12.1-14.9) SECO NDS INR 1.65 H (0.8-1.2) D-Dimer 0.44 (0-0.59) ug/mIFE U Sodium (136-145) mmol/L Potassium (3.5-5.1) mmol/L Chloride (98-107) mmol/L Carbon Dioxide (22-29) mmol/L Anion Gap (5-19) BUN (6-20) mg/dL Creatinine (0.7-1.2) mg/dL GFR Calculation (90-130) mL/min Glucose (65-115) mg/dL Calculated Osmolal ity (285-295) mOsm/k g Calcium (8.5-10.5) mg/dL Total Bilirubin (0.15-1.2) mg/dL AST (0-40) U/L ALT (0-41) U/L Alkaline Phosphata se (40-130) IU/L Troponin T Baselin e (0-15) ng/L Troponin T 120 Min [place] (0-15) ng/L Delta Troponin T (0-10) ABS# NT-Pro-B Natriuret Pep (0-125) pg/mL Total Protein (6.6-8.7) g/dL Albumin (3.5-5.2) g/dL Globulin (1.3-4.6) g/dL SARS-CoV-2 Ag (Rap id) Negative (Negative) 06/20/20 Range/Units 21:13 WBC (4.0-10.0) 10^3/ uL RBC (4.1-5.3) 10^6/u L Hgb (11.7-16.6) g/dL Hct (42.0-52.0) % MCV (80-94) fL MCH (28.0-34.0) pg MCHC (30.0-36.0) g/dL RDW (12.1-15.1) % Plt Count (130-400) 10^3/c mm MPV (7.4-10.4) fL Neut % (Auto) % Lymph % (Auto) % [place] % (Auto) % Eos % (Auto) % Baso % (Auto) % Neut # (Auto) (1.8-7.7) 10^3/u L Lymph # (Auto) (0.8-4.8) 10^3/u L [place] # (Auto) (0.2-0.9) 10^3/u L Eos # (Auto) (0.0-0.8) 10^3/u L Baso # (Auto) (0.0-0.1) 10^3/u L Nucleated RBC % (a uto) % Nucleated RBCs # /100WBC PT (12.1-14.9) SECO NDS INR (0.8-1.2) D-Dimer (0-0.59) ug/mIFE U Sodium (136-145) mmol/L Potassium (3.5-5.1) mmol/L Chloride (98-107) mmol/L Carbon Dioxide (22-29) mmol/L Anion Gap (5-19) BUN (6-20) mg/dL Creatinine (0.7-1.2) mg/dL GFR Calculation (90-130) mL/min Glucose (65-115) mg/dL Calculated Osmolal ity (285-295) mOsm/k g Calcium (8.5-10.5) mg/dL Total Bilirubin (0.15-1.2) mg/dL AST (0-40) U/L ALT (0-41) U/L Alkaline Phosphata se (40-130) IU/L Troponin T Baselin e (0-15) ng/L Troponin T 120 Min [place] 14.09 (0-15) ng/L Delta Troponin T 0.09 (0-10) ABS# NT-Pro-B Natriuret Pep (0-125) pg/mL Total Protein (6.6-8.7) g/dL Albumin (3.5-5.2) g/dL Globulin (1.3-4.6) g/dL SARS-CoV-2 Ag (Rap id) (Negative) Imaging Data^: CXR: Attestation: I personally reviewed and interpreted this imaging study as follows: My impression: Cardiomegaly but otherwise no acute cardiopulmonary findings. EKG Data^: EKG 1: Attestation: I personally reviewed and interpreted this EKG as follows: EKG interpretation date: 06/20/20 EKG interpretation time: 18:08 Interpretation: Normal sinus rhythm at 92 beats a minute, normal axis, no blocks, normal intervals, ST segment depression in 1 and aVL. LVH, findings similar to previous. EKG 2: Attestation: I personally reviewed and interpreted this EKG as follows: EKG interpretation date: 06/20/20 EKG interpretation time: 20:07 Interpretation: Normal sinus rhythm at 91 beats a minute, LVH, T wave inversions and ST depression in 1 and aVL. Findings similar to previous. Discharge Plan Discharge Patient Disposition: Placed in Observation Clinical Impression: Chest pain Qualifiers: Chest pain type: unspecified Qualified Code(s): R07.9 - Chest pain, unspecified Coding Level of Care Code ED Director Orange for [facility] Fwd Exam Comprehensive
[2020-06-20 19:27] LABS: Basophils # 0.1 10^3/uL (0.0-0.1); Basophils % 0.8 %; Eosinophils # 0.1 10^3/uL (0.0-0.8); Eosinophils % 1.4 %; Hematocrit 43.5 % (42.0-52.0); Hemoglobin 14.6 g/dL (11.7-16.6); Lymphocytes # 2.9 10^3/uL (0.8-4.8); Lymphocytes % 32.6 %; Mean Corpuscular HGB Conc 33.6 g/dL (30.0-36.0); Mean Corpuscular Hemoglobin 28.4 pg (28.0-34.0); Mean Corpuscular Volume 84.6 fL (80-94); Mean Platelet Volume 11.1 fL (7.4-10.4); Monocytes # 0.6 10^3/uL (0.2-0.9); Monocytes % 6.8 %; Neutrophils # 5.22 10^3/uL (1.8-7.7); Neutrophils % 58.2 %; Nucleated Red Blood Cells % 0 %; Platelet Count 271 10^3/cmm (130-400); Red Blood Count 5.14 10^6/uL (4.1-5.3); Red Cell Distribution Width 13.4 % (12.1-15.1)
[2020-06-20 19:55] LABS: Troponin(5th) Baseline 14 ng/L (0-15)
[2020-06-20 20:03] LABS: Alanine Aminotransferase 20 U/L (0-41); Albumin Level 4.3 g/dL (3.5-5.2); Alkaline Phosphatase 98 IU/L (40-130); Anion Gap 17.3 (5-19); Aspartate Amino Transferase 18 U/L (0-40); Blood Urea Nitrogen 8 mg/dL (6-20); Calcium 9.9 mg/dL (8.5-10.5); Carbon Dioxide 26 mmol/L (22-29); Chloride 92 mmol/L (98-107); Globulin 3.4 g/dL (1.3-4.6); Glomerular Filtration Rate 79.4 mL/min (90-130); Glucose 417 mg/dL (65-115); NT Pro B Type Natriuretic Pept 285 pg/mL (0-125); Osmolality Calculated 288 mOsm/kg (285-295); Potassium 4.3 mmol/L (3.5-5.1); Sodium 131 mmol/L (136-145); Total Bilirubin 0.4 mg/dL (0.15-1.2); Total Protein 7.7 g/dL (6.6-8.7)
--- NOTE | 2020-06-20 20:12 | ECG_ITS ---
[facility] Test Date: 2020-06-20 Pat Name: Corby Spaulding Department: Room: Gender: Male Parts Remover: : 1970 Requested By: Shana Zuleta Order Number: [id number] Robbie MD: Caitlin Diaz M.D. Measurements Intervals [place] Rate: 91 P: 39 [place]: 238 QRS: 15 QRSD: 92 T: 103 QT: 365 QTc: 449 Interpretive Statements SINUS RHYTHM WITH FIRST DEGREE AV BLOCK WITH FREQUENT SUPRAVENTRICULAR PREMATURE COMPLEXES PROBABLE INFERIOR MYOCARDIAL INFARCTION , PROBABLY OLD [35 ms Q WAVE IN II/aVF] ANTEROSEPTAL MYOCARDIAL INFARCTION , OF INDETERMINATE AGE [40+ ms Q WAVE IN V1-V4] MODERATE T-WAVE ABNORMALITY, CONSIDER LATERAL ISCHEMIA Compared to ECG 06/20/2020 18:08:58 First degree AV block now present Myocardial infarct finding still present T-wave abnormality still present Possible ischemia still present Electronically Signed On 06-20-2020 21:12:29 ROOM SERVICE BELLHOP by Caitlin Diaz M.D. [email or web address]/store/OM/[id number]
[2020-06-20 20:23] LABS: SARS Covid-2 Antigen Negative (Negative)
[2020-06-20 20:34] LABS: INR 1.65 (0.8-1.2)
[2020-06-20 20:47] LABS: D Dimer 0.44 ug/mIFEU (0-0.59)
[2020-06-20 21:35] LABS: Troponin 5 2HR 14.09 ng/L (0-15); Troponin 5 2HR Delta 0.09 ABS# (0-10)
--- NOTE | 2020-06-20 23:20 | PM.HP ---
Providers/Chief Complaint Admitting Physician: Herber Morfin MD Primary Care Provider: DENICE Payan Chief Complaint: DIFFICULTY BREATHING, CP History of Present Illness Corby Spaulding is a 49 year old male with history of mechanical aortic valve currently on Coumadin, ascending aortic aneurysm repair presented today with chief complaint of chest discomfort. Patient is stating that his first aortic surgery was at age 14 with valvulotomy, at age 25 he had undergone valve replacement, then he had pacemaker placement for sick sinus syndrome, about 6 years ago he had ascending aortic aneurysm repair at [facility]. He never had any coronary artery disease. He is not sure whether he was diagnosed with rheumatic aortic valve versus congenital anomaly. Patient presented to the hospital with chief complaint of chest feeling heavy. He would not call it chest pain at all, his symptoms started yesterday when he was driving his car, initially he attributed his symptoms to fluid overload, he took Lasix along with potassium supplementation at home, today when he was playing with his grandchildren he started experiencing chest heaviness again while doing dishes and playing with children which made him very anxious, he also experienced 1- 2 episodes of emesis, he decided to come to the hospital for evaluation. He is denying orthopnea, PND, leg swelling, active chest pain. His symptoms resolved by the time he came to the hospital, he was hemodynamically stable normal CBC and BMP, BNP 285, troponins not significant, EKG showed 0.5 mm J-point elevation in lead III only, T wave inversion lead I aVL which is chronic, incomplete left bundle branch block, subtherapeutic INR, Covid antigen negative Review of Systems Const: Reports: fever(s); Denies: chills Eyes: Denies: change in vision ENMT: Denies: throat pain Card: Reports: chest pain and dyspnea on exertion; Denies: palpitations, irregular heart rhythm, swelling of feet/ankles, lightheadedness or orthopnea Resp: Reports: dyspnea GI: Denies: abdominal pain : Denies: flank pain Musc: Reports: extremity pain; Denies: neck pain Skin/Breast: Denies: rash Neuro: Denies: headache(s) Psych: Reports: anxiety Endo: Denies: polyuria Ej/Lymph: Denies: easy bruising All/Imm: Denies: urticaria Medications/Allergies Home Medications Medication Instructions Recorded Confirmed Last Taken Type metoprolol succinate 25 mg PO DAILY@01/03/20 06/20/20 06/20/20 History warfarin 8 mg PO DAILY 01/03/20 06/20/20 01/03/20 History hydrocodone 10 mg-acetaminophen 1 tab PO Q4H PRN 02/03/20 06/20/20 06/20/20 History 325 mg tablet sildenafil 100 mg tablet 100 mg PO DAILY PRN #30 tab 02/03/20 06/20/20 Unknown Rx warfarin 4 mg tablet 4 mg PO DAILY #90 tab 02/07/20 06/20/20 Unknown Rx insulin lispro 100 unit/mL See Rx Instructions .ROUTE 05/24/20 06/20/20 Unknown Rx subcutaneous pen .COMPLEX #15 ml alprazolam [Xanax] 0.5 mg PO BID PRN 06/20/20 06/20/20 06/20/20 History duloxetine 60 mg PO DAILY@06/20/20 06/20/20 06/19/20 History insulin glargine [Lantus Solostar 20 unit SUBCUT BEDTIME 06/20/20 06/20/20 Unknown History U-100 Insulin] lisinopril 5 mg PO DAILY@06/20/20 06/20/20 06/20/20 History pantoprazole 40 mg PO DAILY@06/20/20 06/20/20 06/20/20 History Allergies Allergy/AdvReac Type Severity Reaction Status Date / Time doxycycline Allergy ADR-Gastrointestinal Verified 06/20/20 18:15 Upset prochlorperazine Allergy Unknown Verified 06/20/20 18:15 [From Compazine] PFSH Acute PFSH: Medical History (Updated 06/20/20 @ 23:35 by Herber Morfin MD) Aortic stenosis Asymptomatic microscopic hematuria DM type 2 (diabetes mellitus, type 2) Erectile dysfunction Hematuria Hyperlipidemia Hypertension Leukocytoclastic vasculitis Sick sinus syndrome Steroid-induced hyperglycemia Surgical History (Updated 06/20/20 @ 23:31 by Herber Mofrin MD) Aortic valve replaced History of open heart surgery History of 3 open heart surgeries for aortic valve History of permanent cardiac pacemaker placement S/P ascending aortic aneurysm repair Family History (Updated 06/20/20 @ 23:32 by Herber Morfin MD) Denies family history of CAD (coronary artery disease) Social History Smoking and tobacco status: never smoked Second hand smoke exposure: No Alcohol intake: former Adopted: No Caregiver/support person: No Lives independently: No Household members: spouse Marital status: Current occupational status: disabled Vitals/I&O/Wt Last Vital Signs Temp 97.2 F L 06/20/20 18:12 Pulse 90 06/20/20 23:00 Resp 18 06/20/20 23:00 BP 108/63 06/20/20 23:00 Pulse Ox 96 06/20/20 23:00 Weight last 48 hrs Weight 104.326 kg Physical Exam Narrative: EXAM NARRATIVE: Young male very anxious appearing Laying comfortably in his bed Saturating well on room air No active chest pain or shortness of breath He is holding his phone in his hand and seem to be very anxious No active chest discomfort, sinus rhythm, telemetry and EKG reviewed No acute respiratory distress Abdomen nontender, soft, EOMI, PERRLA Awake alert oriented x3 GCS 15 Lower extremity has no edema Lower extremity with mild macular rash otherwise no signs of active vasculitis No overt signs of heart failure Surgical scar lien on chest note, pacemaker site nontender Anxious mood Data : 06/20/20 19:12 06/20/20 19:12 A&P Assessment and plan (1) Chest pain: Status: Acute Qualifiers: Chest pain type: unspecified Qualified Code(s): R07.9 - Chest pain, unspecified Additional A&P Information Atypical chest pain Patient has moderate risk factors for coronary disease, patient suffered from steroid-induced hyperglycemia, will check A1c level, lipid profile and TSH, No active chest pain, hemodynamically stable D-dimer negative, subtherapeutic INR I would request Lexiscan stress test in the morning to rule out coronary etiology for chest discomfort 0.5 mm J-point elevation in lead III, T wave inversion lead I aVL incomplete left bundle branch block Troponin not significantly high Echo in the morning, negative D-dimer Anxiety I would continue Xanax 0.5 mg twice daily along duloxetine and hydrocodone Leukocytoclastic vasculitis history No acute decompensation lower extremity no worsening of ulcers noted Full code Cardiac diet, n.p.o. after midnight DVT prophylaxis not needed currently on Coumadin Attestations Medical Necessity Statement*: This patient discharge in less than 48 hours need Lexiscan stress test in the morning to rule out coronary ischemia for his chest discomfort Time Spent in Patient Care: (>than 50% of time spent in counselling and/or direct pt care on unit). 50mins Coding Level of Care Code Acute Mineralogy Teacher for Sonny Lanza Diagnoses Chest pain R07.9 Chest pain type: unspecified
[2020-06-21] MEDS: HYDROcodone-acetaminophen 10-325 mg Tablet 1 TAB PO ×4 (00:05→15:18)
[2020-06-21] MEDS: ALPRAZolam 0.5 mg Tablet PO (00:05)
--- NOTE | 2020-06-21 00:12 | ECG_ITS ---
[facility] Test Date: 2020-06-21 Pat Name: Corby Spaulding Department: Room: 112 Gender: Male Contracting Analyst: : 1970 Requested By: Shana Zuleta Order Number: [id number] Robbie MD: Ty Pina M.D. Measurements Intervals [place] Rate: 65 P: 23 OR: 225 QRS: 34 QRSD: 105 T: 120 QT: 421 QTc: 441 Interpretive Statements SINUS RHYTHM WITH FIRST DEGREE AV BLOCK PROBABLE INFERIOR MYOCARDIAL INFARCTION [35 ms Q WAVE IN II/aVF], PROBABLY OLD ANTEROSEPTAL MYOCARDIAL INFARCTION [40+ ms Q WAVE IN V1-V4], OF INDETERMINATE AGE MODERATE T-WAVE ABNORMALITY, CONSIDER LATERAL ISCHEMIA [-0.1+ mV T WAVE IN I/aVL/V5/V6] Compared to ECG 06/20/2020 20:07:24 No significant changes Electronically Signed On 06-21-2020 19:43:01 INSULATOR TESTER by Ty Pina M.D. [email or web address]/store/[id number]
[2020-06-21 00:14] LABS: Glucose Point of Care 303 mg/dL (70-110)
[2020-06-21 00:18] LABS: Estmated Average Glucose 206; Hemoglobin A1C 8.8 % (4.0-6.0)
[2020-06-21 00:19] LABS: Cholesterol 280 mg/dL (0-200); HDL Cholesterol 28 mg/dL (60-100); LDL Cholesterol Calculated 189 mg/dL (50-129); LDL HDL Ratio 6.75 RATIO (0.00-3.22); Thyroid Stimulating Hormone 1.57 uIU/mL (0.27-4.20); Triglycerides 315 mg/dL (0-150)
[2020-06-21 01:14] LABS: INR 1.69 (0.8-1.2)
[2020-06-21 01:19] LABS: Troponin 5 6HR 15.34 ng/L (0-15); Troponin 5 6HR Delta 1.34 ng/L (0-12)
[2020-06-21 04:00] VITALS: BP 135/79; PULSE 67; RESP 21; TEMP 36.6; O2SAT 96
[2020-06-21] MEDS: lisinopril 5 mg Tablet PO (05:18)
[2020-06-21] MEDS: duloxetine 60 mg Capsule PO (05:18)
[2020-06-21] MEDS: pantoprazole DR 40 mg Tablet PO (05:18)
--- NOTE | 2020-06-21 06:00 | ECG_ITS ---
[facility] Test Date: 2020-06-21 Pat Name: Corby Spaulding Department: Room: 112 Gender: Male Shoe Sewing Machine Operator And Tender: Yeimi Mason : 1970 Requested By: Ninfa Morfin Order Number: [id number] Reading MD: NINFA SCHNEIDER Interpretive Statements NAME OF STUDY: LEXISCAN SESTAMIBI STRESS TEST INDICATION: Chest Pain, NOTE: Please note that this is the electrocardiogram portion of the Lexiscan/Sestamibi stress test. The perfusion scan will be documented separately. DATA: Baseline heart rate was 79 beats per minute. Baseline blood pressure was 144/87 millimeters of mercury. Target heart rate was 171. Maximum heart rate achieved was 94. which was 54 % of the predicted target heart rate. Maximum blood pressure was 144/90 millimeters of mercury. The reason for ending the test was completion of the protocol. The patient did not experience any symptoms. ELECTROCARDIOGRAM: BASELINE: Sinus rhythm. Normal axis. Incomplete left bundle branch block EXERCISE: After Lexiscan injection, occasional PVC was noted otherwise no ST-T changes suggestive of ischemic noted. No arrhythmia noted. CONCLUSION: Please note due to baseline abnormality of the EKG specificity and sensitivity of the EKG portion of LexiScan MIBI stress test will be low 1. EKG not suggestive of ischemia 2. Lexiscan injection unremarkable. 3. Perfusion scan will be documented separately. Electronically Signed On 06-22-2020 18:31:36 POLISHER AND SANDER by NINFA SCHNEIDER [email or web address]
[2020-06-21 06:28] LABS: Glucose Point of Care 274 mg/dL (70-110)
--- NOTE | 2020-06-21 07:00 | USCV_ITS ---
Chelly Cobry Age: 49 Gender: M : 1970 Exam Date: 06/21/2020 09:24 Ordering Phys: Herber Morfin MD Technologist: Melo Cantu Exam Location: [facility] Indication: AO PROS BP: 134 / 74 HR: 74 Rhythm: Sinus Technical Quality: Fair MEASUREMENTS (Male / Female) Normal Values 2D ECHO LV Diastolic Diameter PLAX 3.7 cm 4.2 - 5.9 / 3.9 - 5.3 cm LV Systolic Diameter PLAX 2.1 cm IVS Diastolic Thickness 1.9 cm 0.6 - 1.0 / 0.6 - 0.9 cm IVS Systolic Thickness 2.1 cm LVPW Diastolic Thickness 1.6 cm 0.6 - 1.0 / 0.6 - 0.9 cm LVPW Systolic Thickness 1.6 cm LVOT Diameter 2.0 cm LV Ejection Fraction 2D Teich 76.0 % LV Ejection Fraction MOD 2C 57.8 % LV Ejection Fraction 2C AL 57.6 % LA Diameter 3.9 cm LA Width 3.6 cm LA Height 3.4 cm RA Width 3.3 cm RA Height 3.9 cm Aorta at Sinotubular Diameter 3.3 cm M-MODE LV Diastolic Diameter MM 4.0 cm 4.2 - 5.9 / 3.9 - 5.3 cm LV Systolic Diameter MM 2.8 cm LV Ejection Fraction MM Teich 57.6 % IVS Diastolic Thickness MM 2.3 cm 0.6 - 1.0 / 0.6 - 0.9 cm IVS Systolic Thickness MM 2.3 cm LVPW Diastolic Thickness MM 1.5 cm 0.6 - 1.0 / 0.6 - 0.9 cm LVPW Systolic Thickness MM 1.9 cm RV Diastolic Diameter MM 1.3 cm Aortic Annulus Diameter 4.0 cm LA Ao Ratio MM 0.9 MV E Point Septal Separation 0.7 cm DOPPLER AV Peak Velocity 235.3 cm/s LVOT Peak Velocity 146.0 cm/s AV Area Cont Eq vti 2.5 cm squared AV Area Cont Eq pk 2.0 cm squared MV Area PHT 5.0 cm squared Mitral E to A Ratio 0.8 MV E' Velocity 43.8 cm/s Mitral E to MV E' Ratio 13.3 Mitral E to LV E' Lateral Ratio 10.0 Mitral E to LV E' Septal Ratio 20.5 TR Peak Velocity 169.0 cm/s TR Peak Gradient 11.4 mmHg TV Peak E Velocity 121.0 cm/s Right Atrial Pressure 3.0 mmHg Pulmonary Artery Systolic Pressu 14.4 mmHg PV Peak Velocity 139.0 cm/s FINDINGS Left Ventricle Normal left ventricular cavity size. Normal left ventricular systolic function. Left ventricular ejection fraction is estimated at 55-60 %. This study is inadequate for estimation of regional wall motion normality. Abnormal (paradoxical) septal motion consistent with postoperative status. Grade 2 diastolic dysfunction with elevated left atrial pressure. Right Ventricle Probably normal right ventricular size and systolic function. Pacemaker wire visualized in the right ventricle. Right Atrium Right atrium not well visualized. Pacemaker wire in the right atrial cavity. Left Atrium Left atrium not well visualized. Mitral Valve Thickened mitral valve. No mitral valve stenosis. Trace mitral valve regurgitation. Aortic Valve Mechanical prosthetic aortic valve in situ. Well-seated and normally functioning. No aortic valve stenosis. Peak velocity 2.54 m/s, peak gradient 26 mmHg and mean gradient 14 mmHg. No significant valvular or perivalvular regurgitation Tricuspid Valve Tricuspid valve not well visualized. Pulmonic Valve Pulmonic valve not well visualized. No pulmonary valve stenosis. Pericardium No pericardial effusion. Aorta Normal-sized aortic root. CONCLUSIONS 1. This is a technically very difficult study. 2. Normal left ventricular cavity size and systolic function. Left ventricular ejection fraction is estimated at 55-60 %. This study is inadequate for estimation of regional wall motion normality. Grade 2 diastolic dysfunction with elevated left atrial pressure. 3. Probably normal right ventricular size and systolic function. 4. Mechanical prosthetic aortic valve in situ. Well-seated and normally functioning. No aortic valve stenosis. No significant valvular or perivalvular regurgitation. 5. No prior similar studies to compare. Caitlin Diaz MD (Electronically Signed) Final Date: 21 June 2020 15:39 S
--- NOTE | 2020-06-21 07:00 | NMCV_ITS ---
NM janet perf SPECT r/s* [id number] Corby Spaulding Age: 49 Gender: M : 1970 Exam Date: 06/21/2020 07:22 Ordering Phys: Herber Morfin MD Technologist: MICHELL Dee Exam Location: [facility] Indications: Difficulty breathing, CP STRESS TEST Please see separate stress test report in [facility] for full findings IMAGE PROTOCOL Rest/Stress 1 Lexiscan Day Radiopharmaceutical Dose (mCi) Administration Site Administered by Rest: Tc-99m 11.0 IV MICHELL Figueroa Sestamibi Stress:Tc-99m 32.8 IV MICHELL Dee Sestamibabita Rest: 21-Jun-2020 60 Discovery 630 Stress: 21-Jun-2020 45 Discovery 630 0.4mg Lexiscan. Images obtained in supine and prone position. SPECT RESULTS Technical Quality: Good Raw Data Analysis: Normal Image Corrections: No attenuation or motion correction applied Summed Stress Score: 3 Summed Rest Score: 6 Summed Difference Score: 0 PERFUSION FINDINGS Medium-sized area decreased tracer uptake noted in mid to distal lateral wall on rest images which improved over stress images suggestive of artifact. FUNCTIONAL RESULTS (calculated via Gated SPECT) Stress Image LV EF (%): 66 Stress EDV (mL):64 TID: 0.98 Stress ESV (mL):22 Rest Image LV EF (%): 66 FUNCTIONAL FINDINGS: There is normal left ventricular systolic function. IMPRESSIONS Myocardial perfusion imaging is not suggestive of ischemia. EKG segment will be documented separately. Herber Alexandra MD (Electronically Signed) Final Date: 21 June 2020 14:32 S
--- NOTE | 2020-06-21 07:46 | PC.NURSE ---
Patient taken to nuclear medicine for stress test.
[2020-06-21 08:18] VITALS: BP 134/84; PULSE 79
[2020-06-21] MEDS: regadenoson 0.4 Mg/5 ml Syringe IVP (08:18)
[2020-06-21 11:32] VITALS: BP 148/83; PULSE 80; RESP 15; TEMP 36.8; O2SAT 95
[2020-06-21 11:38] LABS: Glucose Point of Care 298 mg/dL (70-110)
[2020-06-21] MEDS: warfarin 3 mg Tablet 9 MG PO (13:58)
[2020-06-21 14:00] VITALS: PULSE 88
[2020-06-21 15:21] VITALS: BP 159/90; PULSE 86; RESP 20; O2SAT 97
--- NOTE | 2020-06-21 15:34 | PM.DCS ---
Discharge Providers Date of Admission: 06/20/20 22:36 Date of Discharge: June 21, 2020 Attending Provider at Admission: Herber Morfin MD Attending Provider at Discharge: Silvina Mcdonough MD Primary Care Provider: DENICE Payan Diagnoses at Discharge Discharge Diagnosis (1) Chest pain: Status: Acute Qualifiers: Chest pain type: unspecified Qualified Code(s): R07.9 - Chest pain, unspecified Reason for Visit Reason for Visit: DIFFICULTY BREATHING, CP Hospital Course Hospital Course Corby Spaulding is a 49 year old male with history of mechanical aortic valve currently on Coumadin, ascending aortic aneurysm repair presented with chief complaint of chest discomfort. His symptoms resolved by the time he came to the hospital, he was hemodynamically stable normal CBC and BMP, BNP 285, troponins not significant, EKG without acute ST-T wave changes, subtherapeutic INR, Covid antigen negative. Due to concern for anginal symptoms he underwent stress test this morning which was not suggestive of any ischemia. LVEF was estimated to be 66%. his lipid panel returned abnormal witl LDL 189, HDl 28, TSH 1.57. Statin has been added to his regimen as outpatient. Usually follows with electric stop installer at [place], encouraged to report to him results of his latest stress test. also provided referral for cardiology locally Physical Exam Narrative: EXAM NARRATIVE: GEN: Awake, alert and oriented, no acute distress CVS: S1S2 N RS: CTA B/L Abd: Soft, nt/nd , bs+ ADULT NEUROPSYCHOLOGIST: no focal neuro deficits Discharge Data Data Completed and Pending: Completed Studies During Hospitalization Category Date Time Status Sestamibi Stress Test Request Jadon ne Exams 06/21/20 06:00 Draft XR chest 1V abril ble [id number] Stat Exams 06/20/20 18:12 Completed NM janet perf SPECT r/s* [id number] Routin e Nuc Med 06/21/20 07:00 Completed Pending at discharge Category Date Time Status CV echo complete* [id number] Routine Ultrasound 06/21/20 07:00 Taken Labs from last 24 hours 06/21/20 06/21/20 06/21/20 11:31 06:26 00:55 WBC RBC Hgb Hct MCV MCH MCHC RDW Plt Count MPV Neut % (Auto) Lymph % (Auto) [place] % (Auto) Eos % (Auto) Baso % (Auto) Neut # (Auto) Lymph # (Auto) [place] # (Auto) Eos # (Auto) Baso # (Auto) Nucleated RBC % (a uto) Nucleated RBCs # PT INR D-Dimer Sodium Potassium Chloride Carbon Dioxide Anion Gap BUN Creatinine GFR Calculation Glucose POC Glucose 298 274 Estimat Average Gl ucose Hemoglobin A1c Calculated Osmolal ity Calcium Total Bilirubin AST ALT Alkaline Phosphata se Troponin T Baselin e Troponin T 120 Min [place] Troponin T Troponin T Hi Sens 6Hr 15.34 H Troponin T Hi Sens 6Hr Delta 1.34 NT-Pro-B Natriuret Pep Total Protein Albumin Globulin Triglycerides Cholesterol LDL Cholesterol, C alc HDL Cholesterol LDL/HDL Ratio Cholesterol/HDL Ra hernandez TSH SARS-CoV-2 Ag (Rap id) 06/21/20 06/21/20 06/20/20 00:55 00:09 21:13 WBC RBC Hgb Hct MCV MCH MCHC RDW Plt Count MPV Neut % (Auto) Lymph % (Auto) [place] % (Auto) Eos % (Auto) Baso % (Auto) Neut # (Auto) Lymph # (Auto) [place] # (Auto) Eos # (Auto) Baso # (Auto) Nucleated RBC % (a uto) Nucleated RBCs # PT 20.40 H INR 1.69 H D-Dimer Sodium Potassium Chloride Carbon Dioxide Anion Gap BUN Creatinine GFR Calculation Glucose POC Glucose 303 Estimat Average Gl ucose Hemoglobin A1c Calculated Osmolal ity Calcium Total Bilirubin AST ALT Alkaline Phosphata se Troponin T Baselin e Troponin T 120 Min [place] Troponin T Troponin T Hi Sens 6Hr Troponin T Hi Sens 6Hr [place] NT-Pro-B Natriuret Pep Total Protein Albumin Globulin Triglycerides 315 H Cholesterol 280 H LDL Cholesterol, C alc 189 H HDL Cholesterol 28 L LDL/HDL Ratio 6.75 H Cholesterol/HDL Ra hernandez 10.00 H TSH 1.57 SARS-CoV-2 Ag (Rap id) 06/20/20 06/20/20 06/20/20 21:13 19:28 19:12 WBC RBC Hgb Hct MCV MCH MCHC RDW Plt Count MPV Neut % (Auto) Lymph % (Auto) [place] % (Auto) Eos % (Auto) Baso % (Auto) Neut # (Auto) Lymph # (Auto) [place] # (Auto) Eos # (Auto) Baso # (Auto) Nucleated RBC % (a uto) Nucleated RBCs # PT INR D-Dimer Sodium Potassium Chloride Carbon Dioxide Anion Gap BUN Creatinine GFR Calculation Glucose POC Glucose Estimat Average Gl ucose 206 Hemoglobin A1c 8.8 H Calculated Osmolal ity Calcium Total Bilirubin AST ALT Alkaline Phosphata se Troponin T Baselin e Troponin T 120 Min [place] 14.09 Delta Troponin T 0.09 Troponin T Hi Sens 6Hr Troponin T Hi Sens 6Hr Delta NT-Pro-B Natriuret Pep Total Protein Albumin Globulin Triglycerides Cholesterol LDL Cholesterol, C alc HDL Cholesterol LDL/HDL Ratio Cholesterol/HDL Ra hernandez TSH SARS-CoV-2 Ag (Rap id) Negative 06/20/20 06/20/20 06/20/20 19:12 19:12 19:12 WBC RBC Hgb Hct MCV MCH MCHC RDW Plt Count MPV Neut % (Auto) Lymph % (Auto) [place] % (Auto) Eos % (Auto) Baso % (Auto) Neut # (Auto) Lymph # (Auto) [place] # (Auto) Eos # (Auto) Baso # (Auto) Nucleated RBC % (a uto) Nucleated RBCs # PT 20.10 H INR 1.65 H D-Dimer 0.44 Sodium Potassium Chloride Carbon Dioxide Anion Gap BUN Creatinine GFR Calculation Glucose POC Glucose Estimat Average Gl ucose Hemoglobin A1c Calculated Osmolal ity Calcium Total Bilirubin AST ALT Alkaline Phosphata se Troponin T Baselin e 14 Troponin T 120 Min [place] Troponin T Troponin T Hi Sens 6Hr Troponin T Hi Sens 6Hr Delta NT-Pro-B Natriuret Pep Total Protein Albumin Globulin Triglycerides Cholesterol LDL Cholesterol, C alc HDL Cholesterol LDL/HDL Ratio Cholesterol/HDL Ra hernandez TSH SARS-CoV-2 Ag (Rap id) 06/20/20 06/20/20 19:12 19:12 WBC 9.0 RBC 5.14 Hgb 14.6 Hct 43.5 MCV 84.6 MCH 28.4 MCHC 33.6 RDW 13.4 Plt Count 271 MPV 11.1 H Neut % (Auto) 58.2 Lymph % (Auto) 32.6 [place] % (Auto) 6.8 Eos % (Auto) 1.4 Baso % (Auto) 0.8 Neut # (Auto) 5.22 Lymph # (Auto) 2.9 [place] # (Auto) 0.6 Eos # (Auto) 0.1 Baso # (Auto) 0.1 Nucleated RBC % (a uto) 0 Nucleated RBCs # 0.0 PT INR D-Dimer Sodium 131 L Potassium 4.3 Chloride 92 L Carbon Dioxide 26 Anion Gap 17.3 BUN 8 Creatinine 1.0 GFR Calculation 79.4 L Glucose 417 H POC Glucose Estimat Average Gl ucose Hemoglobin A1c Calculated Osmolal ity 288 Calcium 9.9 Total Bilirubin 0.4 AST 18 ALT 20 Alkaline Phosphata se 98 Troponin T Baselin e Troponin T 120 Min [place] Troponin T Troponin T Hi Sens 6Hr Troponin T Hi Sens 6Hr [place] NT-Pro-B Natriuret Pep 285 H Total Protein 7.7 Albumin 4.3 Globulin 3.4 Triglycerides Cholesterol LDL Cholesterol, C alc HDL Cholesterol LDL/HDL Ratio Cholesterol/HDL Ra hernandez TSH SARS-CoV-2 Ag (Rap id) Vitals: Last Vital Signs Temp 98.3 F 06/21/20 11:32 Pulse 86 06/21/20 15:21 Resp 20 H 06/21/20 15:21 BP 159/90 06/21/20 15:21 Pulse Ox 97 06/21/20 15:21 Discharge Plan Discharge Patient Disposition: Home Condition: Stable Prescriptions: New atorvastatin 40 mg tablet 40 mg PO DAILY 30 Days Qty: 30 RF: 0 Continued hydrocodone-acetaminophen [Fields] 10-325 mg tablet 1 tab PO Q4H PRN (Reason: Pain) RF: 0 sildenafil 100 mg tablet 100 mg PO DAILY PRN (Reason: sexual activity) Qty: 30 RF: 12 warfarin 4 mg tablet 4 mg PO DAILY Qty: 90 RF: 0 Humalog KwikPen Insulin 100 unit/mL insulin pen See Rx Instructions .ROUTE .COMPLEX Qty: 15 RF: 0 Xanax 0.5 mg Tablet 0.5 mg PO BID PRN (Reason: Anxiety) RF: 0 pantoprazole 40 mg tablet,delayed release (DR/EC) 40 mg PO DAILY@06 RF: 0 lisinopril 5 mg tablet 5 mg PO DAILY@06 RF: 0 duloxetine 60 mg capsule,delayed release(DR/EC) 60 mg PO DAILY@06 RF: 0 Lantus Solostar U-100 Insulin 100 unit/mL (3 mL) insulin pen 20 unit SUBCUT BEDTIME RF: 0 metoprolol succinate 50 mg tablet extended release 24 hr 25 mg PO DAILY@06 RF: 0 warfarin 4 mg tablet 8 mg PO DAILY RF: 0 Discharge Orders: Discharge Order (Routine); Ordered 06/21/20 Ordered By: Silvina Mcdonough Referrals: Miesha Jenkins, DIRECTOR ENVIRONMENTAL [Primary Care Provider] - 1-3 days (Please, follow-up with Miesha GALDAMEZ on Friday, June 26 at 9:30a.m. If you have any questions or need to reschedule. Please call ) Ty Pina MD [Physician] - 2 weeks (Please, follow-up with your electric stop installer in [place] in 2 weeks. If you would like appointment at [facility]. Please call ) Discharge Diet: Usual diet Discharge Activity: Resume usual activity Patient Instructions: Chest Pain Stoplight Discharge Attestations Time Spent in Discharge Care*: less than 30 min Quality Metrics Clinical Quality Measures During this hospital stay, did patient experience: None Coding Level of Care Code Acute Insurance Commissioner for Jesusg Fwd Diagnoses Chest pain R07.9 Chest pain type: unspecified
== END 2020-06-21 15:30 | disposition home or self-care (01) ==
LOC: ER 23:03 → CSU 06-21 07:33
PROVIDERS: Emergency Medicine; Admitting Provider Internal Medicine; Emergency Provider Emergency Medicine; PCP Nurse Practitioner Family; Visit Provider Student in an Organized Health Care Education/Training Program
DX: R07.89 Other chest pain (principal); Z79.01 Long term (current) use of anticoagulants; E11.9 Type 2 diabetes mellitus without complications; Z79.4 Long term (current) use of insulin; E78.5 Hyperlipidemia, unspecified; I10 Essential (primary) hypertension; I44.7 Left bundle-branch block, unspecified
CPT/HCPCS: 12345; 36415; 36416; 71045; 78452; 80053; 80061; 82962; 83036; 83880; 84443; 84484; 85025; 85378; 85610; 87426; 93005; 93017; 93306; 96372; 99283; 99285; A9500; G0378; J1815; J2785

== ENCOUNTER → 2020-09-07 08:11 | Outpatient (BNVA) | payer MEDICARE, SELFPAY | PROVIDERS: PCP Nurse Practitioner Family; Visit Provider Dermatology | DX: Z13.6 Encounter for screening for cardiovascular disorders (principal) | CPT/HCPCS: 80061; 82947; 83036 ==

== ENCOUNTER → 2021-05-11 10:13 | Outpatient (BNVA) | payer MEDICARE, SELFPAY | PROVIDERS: PCP Nurse Practitioner Family; Visit Provider Nurse Practitioner | DX: E11.42 Type 2 diabetes mellitus with diabetic polyneuropathy (principal); Z79.4 Long term (current) use of insulin | CPT/HCPCS: 99204 ==

== ENCOUNTER → 2021-05-15 14:54 | Outpatient (BNVA) | payer MEDICARE, SELFPAY | PROVIDERS: PCP Nurse Practitioner Family; Referring Provider Nurse Practitioner; Visit Provider Specialist | DX: G62.89 Other specified polyneuropathies (principal); G56.22 Lesion of ulnar nerve, left upper limb | CPT/HCPCS: 95910 ==

== ENCOUNTER 2021-07-03 15:48 | Outpatient (CLI) | payer MEDICARE, SELFPAY ==
[2021-07-03 16:31] LABS: Erythrocyte Sedimentation Rate 18 mm/hr (0-10)
[2021-07-03 17:16] LABS: C Reactive Protein 2.9 mg/L (0.0-4.9); Thyroid Stimulating Hormone 1.33 uIU/mL (0.27-4.20)
[2021-07-03 17:34] LABS: Folate Level 5.3 ng/mL (4.5-32.2)
[2021-07-09 13:13] LABS: Methylmalonic Acid 165 nmol/L (87-318)
== END 2021-07-03 15:49 | disposition home or self-care (01) ==
LOC: LAB 15:58
PROVIDERS: PCP Nurse Practitioner Family; Visit Provider Nurse Practitioner
DX: G62.9 Polyneuropathy, unspecified (principal)
CPT/HCPCS: 82746; 83921; 84443; 85651; 86140; 86334

== ENCOUNTER → 2021-08-09 08:00 | Outpatient (BNVA) | payer MEDICARE, SELFPAY | PROVIDERS: PCP Nurse Practitioner Family; Visit Provider Nurse Practitioner Family | DX: R50.9 Fever, unspecified (principal) | CPT/HCPCS: 87635 ==

== ENCOUNTER → 2022-01-07 09:56 | Outpatient (BNVA) | payer MEDICARE, SELFPAY | PROVIDERS: PCP Family Medicine; Visit Provider Nurse Practitioner | DX: E11.42 Type 2 diabetes mellitus with diabetic polyneuropathy (principal); E11.65 Type 2 diabetes mellitus with hyperglycemia; Z79.4 Long term (current) use of insulin | CPT/HCPCS: 99213; 99214 ==

== ENCOUNTER → 2022-03-04 14:33 | Outpatient (BNVA) | payer MEDICARE, SELFPAY | PROVIDERS: PCP Family Medicine; Visit Provider Urology | DX: N52.1 Erectile dysfunction due to diseases classified elsewhere (principal); R31.21 Asymptomatic microscopic hematuria; G62.9 Polyneuropathy, unspecified; Z79.01 Long term (current) use of anticoagulants | CPT/HCPCS: 99213 ==

== ENCOUNTER 2022-12-06 15:56 | Inpatient (IN) | payer MEDICARE, SELFPAY ==
[2022-12-06 16:01] VITALS: BP 126/74; PULSE 91; RESP 18; TEMP 38.2; O2SAT 99; BMI 28.8
[2022-12-06 16:34] VITALS: BP 113/69; PULSE 92; RESP 17; TEMP 37.6; O2SAT 98
[2022-12-06 17:41] LABS: Bilirubin Urine Neg (Negative); Blood Urine 3+ (Negative); Glucose Urine UA 4+ (Normal); Ketones Urine Negative (Negative); Nitrate Urine Negative (Negative); Protein Urine 3+ (Negative); Urine Appearance Cloudy (CLEAR); Urine Color Yellow (Yellow); Urobilinogen Urine Norm (Negative); pH Urine 5 (5-7)
[2022-12-06 17:42] LABS: Add Urine Culture? Yes; Add Urine Microscopic? YES; Leukocyte Esterase Urine Negative (Negative); Mucus Urine 1+ /hpf; RBC Urine 80-100 /hpf (0-2); Squamous Epithelial Cell Urine 0-4 /hpf (0-5); WBC Urine 40-55 /hpf (0-5)
--- NOTE | 2022-12-06 18:12 | XRR_ITS ---
PROCEDURE INFORMATION: Exam: XR Chest Exam date and time: 12/06/2022 6:33 PM Age: 52 years old Clinical indication: Other: Pre op; Additional info: Pre op assessment TECHNIQUE: Imaging protocol: Radiologic exam of the chest. Views: 1 view. COMPARISON: CR XR chest 1V portable [id number] 06/20/2020 6:52 PM FINDINGS: Tubes, catheters and devices: Pacemaker. Lungs: Unremarkable. No consolidation. Pleural spaces: Unremarkable. No pleural effusion. No pneumothorax. Heart/Mediastinum: Cardiomegaly. Bones/joints: Sternotomy wires. XR/XR chest 1V portable [id number] IMPRESSION: 1. Cardiomegaly. 2. Pacemaker. 3. Sternotomy wires.
--- NOTE | 2022-12-06 18:18 | W.ED.FEVER ---
HPI - Fever General: Chief Complaint: Fever Stated Complaint: flu like symptoms Time Seen by Provider: 12/06/22 17:48 Source: patient Mode of arrival: ambulatory Limitations: no limitations History of Present Illness: This 52-year-old male with a history of diabetic foot ulcer, hyperlipidemia, hypertension and aortic stenosis presents to the ER with fever that started 3 days ago. Patient has been having fevers, mostly at night with Tmax of 102.2 for the last 3 days. It is associated with joint pain, headache, body aches and intermittent nausea and diarrhea. Patient has a diabetic foot ulcer that has been treated by Dr. Hodgson, his sewing machine operator zipper in [place]. Patient does admit that the ulcer is getting better. When he took pictures and sent it to Dr. Hodgson, he was advised to come to the ER for evaluation. Associated symptoms: Reports chills, extremity pain and night sweats; Deny chest pain, diarrhea, dysuria or headache(s) Review of Systems Const: Reports: fever(s), chills, body aches, fatigue, malaise and night sweats Eyes: Denies: change in vision or eye discharge Card: Denies: chest pain or lightheadedness GI: Denies: diarrhea : Denies: dysuria Musc: Reports: neck pain, extremity pain, joint pain and limited range of motion Neuro: Denies: headache(s) or weakness in extremities Psych: Denies: depression Ej/Lymph: Denies: easy bruising All/Imm: Denies: urticaria, tongue swelling or facial swelling PFSH ED PFSH: Medical History Aortic stenosis Asymptomatic microscopic hematuria DM type 2 (diabetes mellitus, type 2) Erectile dysfunction Hematuria Hyperlipidemia Hypertension Leukocytoclastic vasculitis Sick sinus syndrome Steroid-induced hyperglycemia Surgical History Aortic valve replaced History of open heart surgery History of 3 open heart surgeries for aortic valve History of permanent cardiac pacemaker placement S/P ascending aortic aneurysm repair Family History Denies family history of CAD (coronary artery disease) Social History Smoking and tobacco status: never smoked Second hand smoke exposure: No Alcohol intake: former Substance/Drug Use: unknown Adopted: No Caregiver/support person: No Lives independently: No Household members: spouse Marital status: Current occupational status: disabled Physical Exam Const: COMMON NORMALS: no acute distress, patient oriented x3, no limitations and alert HENMT: COMMON NORMALS: normocephalic HEAD & SCALP: normocephalic Eye: COMMON NORMALS: EOMs intact bilaterally Neck/C-Spine: COMMON NORMALS: full ROM and supple Chest: COMMONS NORMALS: normal inspection of the chest Resp: COMMON NORMALS: normal respiratory effort, No retractions, No use of accessory muscles and clear to auscultation bilaterally AUSCULTATION: clear to auscultation bilaterally Cardio: COMMON NORMALS: regular rate, regular rhythm and No murmurs present (Cardio) RATE: regular rate RHYTHM: regular rhythm GI: COMMON NORMALS: Normal to inspection, nondistended, normoactive bowel sounds present and non-tender : COMMON NORMALS: Yes no CVA tenderness BLADDER/KIDNEY EXAM: Yes no CVA tenderness Back/Pelvis: COMMON NORMALS: no CVA tenderness and no thoracic nor lumbar tenderness Extremity: GENERAL: Yes normal exam except as noted EXTREMITY IMAGE (FRONT): 1. Healing ulcer on the sole of the left midfoot. There is no drainage and very minimal redness around the ulcer. 2. Superficial ulcer on the medial border of the left big toe. No drainage. No accumulation or sign of active infection. Neuro: COMMON NORMALS: patient oriented x3 and no focal motor deficits SENSORIUM/ORIENTATION: Yes alert Psych: COMMON NORMALS: mental status grossly normal and cooperative Course Reevaluation(s): Reevaluation #1: Patient reevaluated. His temperature now is 103.1. Given his past history of bacterial endocarditis and his clinical presentation, he will be started on IV antibiotics. Time: 19:09 Consultations: Consultation #1: Case discussed with Dr. Zhong who accepted patient for admission. Vital Signs: Vital signs: Vital Signs Temperature 99.7 F H 12/06/22 16:34 Pulse Rate 91 12/06/22 20:18 Respiratory Rate 16 12/06/22 20:18 Blood Pressure 122/71 12/06/22 20:18 Pulse Oximetry 96 12/06/22 20:18 Oxygen Delivery Me thod Room Air 12/06/22 16:34 MDM - Fever Medical Decision Making Medical decision making: Patient has fever of unclear source. Given his significant cardiac history and history of subacute bacterial endocarditis, IV antibiotics was started after blood cultures. He will be admitted for further evaluation and treatment. Case discussed with Dr. Zhong who accepted patient for admission. Lab Data 12/06/22 18:40 12/06/22 18:40 Radiology Impressions Chest X-Ray 12/06/22 18:12 IMPRESSION: 1. Cardiomegaly. 2. Pacemaker. 3. Sternotomy wires. Laboratory Results WBC 8.2 10^3/uL (4.0-10.0) 12/06/22 18:40 RBC 4.54 10^6/uL (4.1-5.3) 12/06/22 18:40 Hgb 12.3 g/dL (11.7-16.6) 12/06/22 18:40 Hct 37.6 % (42.0-52.0) L 12/06/22 18:40 MCV 82.8 fl (80-94) 12/06/22 18:40 MCH 27.1 pg (28.0-34.0) L 12/06/22 18:40 MCHC 32.7 g/dL (30.0-36.0) 12/06/22 18:40 RDW 13.0 % (12.1-15.1) 12/06/22 18:40 Plt Count 222 10^3/cmm (130-400) 12/06/22 18:40 MPV 10.8 fL (7.4-10.4) H 12/06/22 18:40 Neut % (Auto) 82.5 % 12/06/22 18:40 Lymph % (Auto) 12.2 % 12/06/22 18:40 [place] % (Auto) 4.6 % 12/06/22 18:40 Eos % (Auto) 0.0 % 12/06/22 18:40 Baso % (Auto) 0.5 % 12/06/22 18:40 Neut # (Auto) 6.79 10^3/uL (1.8-7.7) 12/06/22 18:40 Lymph # (Auto) 1.0 10^3/uL (0.8-4.8) 12/06/22 18:40 [place] # (Auto) 0.4 10^3/uL (0.2-0.9) 12/06/22 18:40 Eos # (Auto) 0.0 10^3/uL (0.0-0.8) 12/06/22 18:40 Baso # (Auto) 0.0 10^3/uL (0.0-0.1) 12/06/22 18:40 Nucleated RBC % (auto) 0 % 12/06/22 18:40 Nucleated RBCs # 0.0 /100WBC 12/06/22 18:40 Sodium 124 mmol/L (136-145) L 12/06/22 18:40 Potassium 4.0 mmol/L (3.5-5.1) 12/06/22 18:40 Chloride 87 mmol/L (98-107) L 12/06/22 18:40 Carbon Dioxide 23 mmol/L (22-29) 12/06/22 18:40 Anion Gap 18.0 (5-19) 12/06/22 18:40 BUN 10 mg/dL (6-20) 12/06/22 18:40 Creatinine 1.2 mg/dL (0.7-1.2) 12/06/22 18:40 GFR Calculation 63.6 mL/min (90-130) L 12/06/22 18:40 Glucose 279 mg/dL (65-115) H 12/06/22 18:40 Calculated Osmolality 267 mOsm/kg (285-295) L 12/06/22 18:40 Lactic Acid 3.2 mmol/L (0.5-2.2) H 12/06/22 18:40 Lactic Acid (Sepsis) 1.4 mmol/L (0.5-2.2) 12/06/22 21:18 Calcium 8.8 mg/dL (8.5-10.5) 12/06/22 18:40 Total Bilirubin 0.6 mg/dL (0.15-1.2) 12/06/22 18:40 AST 20 U/L (0-40) 12/06/22 18:40 ALT 14 U/L (0-41) 12/06/22 18:40 Alkaline Phosphatase 75 U/L (40-130) 12/06/22 18:40 Total Protein 8.0 g/dL (6.6-8.7) 12/06/22 18:40 Albumin 3.8 g/dL (3.5-5.2) 12/06/22 18:40 Globulin 4.2 g/dL (1.3-4.6) 12/06/22 18:40 Urine Color Yellow (Yellow) 12/06/22 16:45 Urine Appearance Cloudy (CLEAR) A 12/06/22 16:45 Urine pH 5 (5-7) 12/06/22 16:45 Ur Specific [place] 1.010 (1.005-1.030) 12/06/22 16:45 Urine Protein 3+ (Negative) H 12/06/22 16:45 Urine Glucose (UA) 4+ (Normal) H 12/06/22 16:45 Urine Ketones Negative (Negative) 12/06/22 16:45 Urine Blood 3+ (Negative) H 12/06/22 16:45 Urine Nitrate Negative (Negative) 12/06/22 16:45 Urine Bilirubin Neg (Negative) 12/06/22 16:45 Urine Urobilinogen Norm mg/dL (Negative) 12/06/22 16:45 Ur Leukocyte Esterase Negative (Negative) 12/06/22 16:45 Urine RBC 80-100 /hpf (0-2) H 12/06/22 16:45 Urine WBC 40-55 /hpf (0-5) H 12/06/22 16:45 Ur Squamous Epith Cells 0-4 /hpf (0-5) H 12/06/22 16:45 Amorphous Sediment Not Reportable 12/06/22 16:45 Urine Bacteria None /hpf (NONE) 12/06/22 16:45 Urine Mucus 1+ /hpf 12/06/22 16:45 Influenza Type A Ag negative (Negative) 12/06/22 18:30 Influenza Type B Ag negative (Negative) 12/06/22 18:30 SARS-CoV-2 Ag (Rapid) Negative (Negative) 12/06/22 20:30 Discharge Plan Discharge Patient Disposition: Admitted As Inpatient Clinical Impression: Fever of unknown origin Condition: Stable Coding Level of Care Code ED Exchange Administrator for Sonny Lanza
[2022-12-06 19:00] VITALS: TEMP 39.3
[2022-12-06 19:07] LABS: Influenza A by IFA negative (Negative); Influenza B by IFA negative (Negative)
[2022-12-06] MEDS: cefepime 2,000 MG in sodium chloride 0.9% (plus) 50 ML 100 MG IV (19:21)
[2022-12-06] MEDS: acetaminophen 500 mg Tablet 1000 MG PO (19:21)
[2022-12-06 19:25] LABS: Basophils % 0.5 %; Hematocrit 37.6 % (42.0-52.0); Hemoglobin 12.3 g/dL (11.7-16.6); Lymphocytes % 12.2 %; Mean Corpuscular HGB Conc 32.7 g/dL (30.0-36.0); Mean Corpuscular Hemoglobin 27.1 pg (28.0-34.0); Mean Corpuscular Volume 82.8 fl (80-94); Mean Platelet Volume 10.8 fL (7.4-10.4); Monocytes # 0.4 10^3/uL (0.2-0.9); Monocytes % 4.6 %; Neutrophils # 6.79 10^3/uL (1.8-7.7); Neutrophils % 82.5 %; Nucleated Red Blood Cells % 0 %; Platelet Count 222 10^3/cmm (130-400); Red Blood Count 4.54 10^6/uL (4.1-5.3); White Blood Count 8.2 10^3/uL (4.0-10.0)
[2022-12-06 19:41] LABS: Alanine Aminotransferase 14 U/L (0-41); Albumin Level 3.8 g/dL (3.5-5.2); Alkaline Phosphatase 75 U/L (40-130); Aspartate Amino Transferase 20 U/L (0-40); Blood Urea Nitrogen 10 mg/dL (6-20); Calcium 8.8 mg/dL (8.5-10.5); Carbon Dioxide 23 mmol/L (22-29); Globulin 4.2 g/dL (1.3-4.6); Glomerular Filtration Rate 63.6 mL/min (90-130); Glucose 279 mg/dL (65-115); Lactic Sepsis W/Reflex 3.2 mmol/L (0.5-2.2); Total Bilirubin 0.6 mg/dL (0.15-1.2)
[2022-12-06 19:56] LABS: Chloride 87 mmol/L (98-107); Osmolality Calculated 267 mOsm/kg (285-295); Sodium 124 mmol/L (136-145)
[2022-12-06 20:18] VITALS: BP 122/71; PULSE 91; RESP 16; O2SAT 96
[2022-12-06] MEDS: vancomycin 1,000 MG in sodium chloride 0.9% 250 ML 250 MG IV (20:20)
[2022-12-06 20:52] LABS: Reflex Lactate Order REFLEX LACTIC ORDERD
[2022-12-06 21:04] LABS: SARS Covid-2 Antigen Negative (Negative)
--- NOTE | 2022-12-06 21:09 | PC.NURSE ---
Dr dean'd patient to take home pain pill.
[2022-12-06 21:42] LABS: Lactic Acid level (Lactate) 1.4 mmol/L (0.5-2.2)
[2022-12-06 22:53] VITALS: BP 97/52; PULSE 84; RESP 16; O2SAT 92
[2022-12-06 23:00] VITALS: BP 120/73; PULSE 85; RESP 16; TEMP 37.4; O2SAT 96
[2022-12-06 23:20] VITALS: BMI 28.9
--- NOTE | 2022-12-06 23:42 | P.HP_ITS ---
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 Patient has a history of 3 open heart surgeries for aortic valve and has had endocarditis before and he feels like this time he has gotten the same thing. 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 Shortly thereafter after 1 year he got endocarditis. His electro optical engineer is Dr. Shahab Olson at [facility]. All his records are there. He has been having fevers that are mainly high at evening/nighttime 102.2 for the last 3 days. He is also complaining of joint pains headaches body aches and nausea. He has also had some loose stool episodes as well however that has resolved by this point.. He follows a operations supervisor chemical cleaning in [place] Dr. Hodgson for his diabetic foot ulcer which apparently has gotten better compared to before. He contacted his doctor and showed him pictures of his ulcer and was advised to go to the nearest ER for evaluation of his feet there. He has been having chills night sweats and pain in his joints. He feels generally tired fatigued and malaised. He also feels slightly weak. Patient states that he has been having hematuria which is also new for him. He is only had one other time in the past. He states ever since he was diagnosed with a vasculitis and electrolyte appropriate he has not had a flareup. He does complain of pelvic pain and suprapubic pain at this time. Does not have any dysuria or burning. He is unsure if he has a UTI or not. He has been having chills and a fever for last few days. He states he was planning to go camping however has not gone so yet[place] have a tick bite however he removed it shortly thereafter. He does not recall any other tick bites or rashes on his body. ED course: Blood pressure 122/71, respiratory 16, pulse 91, temperature 99.7, saturating 96% on room air. Blood cultures were obtained and he was started on IV antibiotics vancomycin and cefepime. Chest x-ray shows cardiomegaly pacemaker and sternotomy wires. WBC 8.2, hemoglobin 12.3, platelets 222, sodium 124, potassium 4.0, creatinine 1.2, osmolality 267, lactic acid 3.2 initially however repeat was 1.4, UA positive for 2+ blood, 80-100 RBCs, WBC 40-55, no bacteria, 1+ mucus. COVID and influenza are negative. Medications/Allergies Home Medications Medication Instructions Recorded Confirmed Last Taken Type metoprolol succinate 50 mg 50 mg PO DAILY@06 01/03/20 12/06/22 12/04/22 History tablet,extended release 24 hr alprazolam 0.5 mg tablet (Xanax) 0.5 mg PO BID PRN Anxiety 06/20/20 12/06/22 06/20/20 History blood-glucose meter,continuous #1 ea 09/13/20 03/04/22 Unknown Rx (Dexcom G6 Vinyl Installer) blood-glucose sensor (Dexcom G6 #3 ea 05/17/21 03/04/22 Unknown Rx Sensor device) blood-glucose transmitter (Dexcom #1 ea 05/17/21 03/04/22 Unknown Rx G6 Transmitter device) pantoprazole 40 mg tablet,delayed 40 mg PO DAILY@06 #90 tabs 06/04/21 12/06/22 12/04/22 Rx release duloxetine 60 mg capsule,delayed 60 mg PO DAILY #30 caps 01/07/22 12/06/22 12/04/22 Rx release tadalafil 20 mg tablet 20 mg PO DAILY PRN sexual activity 03/04/22 12/06/22 Unknown Rx #20 tabs furosemide 40 mg tablet 20 mg PO DAILY PRN Edema 12/06/22 12/06/22 Unknown History insulin glargine 100 30 unit SUBCUT QAM 12/06/22 12/06/22 12/04/22 History unit-lixisenatide 33 mcg/mL subcutaneous pen (Soliqua 100/33) oxycodone-acetaminophen 7.5 mg-325 1 tab PO Q4H PRN Pain 12/06/22 12/06/22 Unknown History mg tablet warfarin 4 mg tablet 6 mg PO DAILY 12/06/22 12/06/22 12/05/22 History Allergies Allergy/AdvReac Type Severity Reaction Status Date / Time doxycycline Allergy ADR-Gastrointestinal Verified 03/04/22 14:43 Upset prochlorperazine Allergy Unknown Verified 03/04/22 14:43 [From Compazine] PFSH Acute PFSH: Medical History Aortic stenosis Asymptomatic microscopic hematuria DM type 2 (diabetes mellitus, type 2) Erectile dysfunction Hematuria Hyperlipidemia Hypertension Leukocytoclastic vasculitis Sick sinus syndrome Steroid-induced hyperglycemia Surgical History Aortic valve replaced History of open heart surgery History of 3 open heart surgeries for aortic valve History of permanent cardiac pacemaker placement S/P ascending aortic aneurysm repair Family History Denies family history of CAD (coronary artery disease) Social History Smoking and tobacco status: never smoked Second hand smoke exposure: No Alcohol intake: former Substance/Drug Use: unknown Adopted: No Caregiver/support person: No Lives independently: No Household members: spouse Marital status: Current occupational status: disabled Vitals/I&O/Wt Last Vital Signs Temp 99.4 F 12/06/22 23:00 Pulse 85 12/06/22 23:00 Resp 16 12/06/22 23:00 BP 120/73 12/06/22 23:00 Pulse Ox 96 12/06/22 23:00 O2 Del Method Room Air 12/06/22 23:20 12/06/22 12/06/22 12/07/22 14:59 22:59 06:59 Intake Total 300 / 300 Balance 300 / 300 Weight last 48 hrs Weight 96.729 kg Weight 96.332 kg Physical Exam Narrative: General: Alert oriented x3, patient seen laying in bed appearing comfortable at this time no acute respiratory distress HEENT: Normocephalic, atraumatic, EOMI, Cardio: Regular rate rhythm, normal S1-S2, mechanical aortic valve click appreciated Respiratory: To auscultation bilaterally no wheezes or rhonchi GI: Abdomen soft, nontender, bowel sounds + Extremities: No edema bilateral lower extremities Examined in a lot of detail. No stigmata of endocarditis. Data 12/06/22 18:40 12/06/22 18:40 Micro: Microbiology 12/06/22 18:40 Blood Culture - Preliminary Blood SPECIMEN COLLECTED 12/06/22 18:45 Blood Culture - Preliminary Blood SPECIMEN COLLECTED A&P Assessment and plan (1) Aortic valve replaced: (2) Aortic stenosis: (3) Hyperlipidemia: (4) DM type 2 (diabetes mellitus, type 2): (5) Hematuria: (6) Asymptomatic microscopic hematuria: (7) Peripheral neuropathy: (8) Fever of unknown origin: (9) Chronic anticoagulation: Plan #Fever of unknown origin #History of bacterial endocarditis #History of lower extremity improved. #History of aortic aneurysm repair, surgical repair of aortic valve open heart #Diabetes mellitus #Hematuria, new, possible UTI? #Hyperlipidemia #Hypertension #Sick sinus syndrome status post pacemaker #History of aortic stenosis status postrepair #Chronic diastolic congestive heart failure #Hyponatremia ? Check blood culture, urine culture, sputum Gram stain culture ? Check echocardiogram to rule out endocarditis. If TTE negative consider IRASEMA ? Continue vancomycin and cefepime ? Check procalcitonin ? Check CT chest abdomen pelvis to rule out possible source of fever ? Check urine culture ? Check CBC, CMP, magnesium in a.m. ? Lactic acid has normalized to 1.2 at this point ? We will place patient on normal saline 125 cc/h ? Continue warfarin at this time. Pharmacy consult for warfarin dosing did check PT/INR ? Continue pantoprazole, metoprolol succinate ? Hold Lasix at this time. ? Continue duloxetine ? Obtain records from cardiology and previous hospital where he had his admission for endocarditis ? We will cautiously hydrate patient as he has a history of diastolic heart failure. At this time appears to be compensated. Fluid bolus not given. ? Patient does complain of pelvic pain, hematuria. I will check for urine culture rule out infection. Will await results of CT abdomen pelvis to evaluate further. ? Check urine sodium, urine osmolality, serum osmolality,. Sodium 124 today. Possibly due to dehydration. I will gently hydrate patient and recheck sodium in 6 hours. Full code Continue on warfarin. INR goal 2.5-3.5 for mechanical aortic valve. Patient was given enough time to ask questions and they were answered to his satisfaction. All the differential diagnoses were explained to him in detail and plan of care management was discussed as well. Attestations Medical Necessity Statement*: Greater than 2 midnight stay for management of fever of unknown origin Coding Level of Care Code G0426 (50 min) TH Encounter Time (min): 50 Patient seen via Telehealth in the acute care setting (hospital or ED location) by agreement and consent of patient or patient field marketing representative. Telehealth technology used during the visit includes video and audio. This patient encounter is appropriate and reasonable under the circumstances given the patient?s particular presentation at this time. The patient has been advised of the potential risks and limitations of this mode of treatment (including but not limited to the absence of in-person examination at this time) and has agreed to be treated by an off-site physician for this visit. If deemed clinically necessary from this telehealth visit, or if condition or consent for telehealth visit changes, an in-person visit will be arranged. For this encounter, total time for the origination of telehealth care on this date is as shown. Diagnoses Aortic valve replaced Z95.2 Aortic stenosis I35.0 Hyperlipidemia E78.5 DM type 2 (diabetes mellitus, type 2) E11.9 Hematuria R31.9 Asymptomatic microscopic hematuria R31.21 Peripheral neuropathy G62.9 Fever of unknown origin R50.9 Chronic anticoagulation Z79.01
--- NOTE | 2022-12-06 23:55 | CTR_ITS ---
PROCEDURE INFORMATION: Exam: CT Chest Without Contrast; Diagnostic Exam date and time: 12/07/2022 1:21 AM Age: 52 years old Clinical indication: Fever; Prior surgery; Surgery date: 6+ months; Surgery type: Valve replacement, pacemaker; Additional info: Fever unknown origin TECHNIQUE: Imaging protocol: Diagnostic computed tomography of the chest without contrast. Radiation optimization: All CT scans at this facility use at least one of these dose optimization techniques: automated exposure control; mA and/or kV adjustment per patient size (includes targeted exams where dose is matched to clinical indication); or iterative reconstruction. REPORTING DATA: Count of CT and Cardiac NM exams in prior 12 months: This patient has received 0 known CTs and 0 known cardiac nuclear medicine studies in the 12 months prior to the current study. COMPARISON: CR (CHEST, ) 12/06/2022 6:33 PM RADIATION DOSE METRICS: Total DLP (mGy-cm): 517 FINDINGS: Tubes, catheters and devices: Left-sided cardia pacing device. Lungs: Unremarkable. No consolidation. No dominant mass or spiculated nodule. Pleural spaces: No pneumothorax. No pleural effusion. Heart: Heart is mildly enlarged. Previous aortic valvular replacement. Coronary arteries: Mild coronary atherosclerotic disease. Lymph nodes: No bulky mediastinal or hilar lymphadenopathy noted. Vasculature: Advanced diffuse vascular calcification noted. Diaphragm: Tiny hiatal hernia. Bones/joints: Mild spine DJD. Soft tissues: Unremarkable. PROCEDURE INFORMATION: Exam: CT Abdomen And Pelvis Without Contrast Exam date and time: 12/07/2022 1:21 AM Age: 52 years old Clinical indication: Fever; Prior surgery; Surgery date: 6+ months; Surgery type: Valve replacement, pacemaker; Additional info: Fever unknown origin TECHNIQUE: Imaging protocol: Computed tomography of the abdomen and pelvis without contrast. Radiation optimization: All CT scans at this facility use at least one of these dose optimization techniques: automated exposure control; mA and/or kV adjustment per patient size (includes targeted exams where dose is matched to clinical indication); or iterative reconstruction. REPORTING DATA: Count of CT and Cardiac NM exams in prior 12 months: This patient has received 0 known CTs and 0 known cardiac nuclear medicine studies in the 12 months prior to the current study. COMPARISON: CT ang ches [place]dp[place] [id number] 01/03/2020 11:58 AM RADIATION DOSE METRICS: Total DLP (mGy-cm): 724.8 FINDINGS: Lungs: The visualized lung bases are clear. Diaphragm: Tiny hiatal hernia. Liver: Liver is mildly enlarged and mildly steatotic. Gallbladder and bile ducts: No calcified gallstones or biliary dilation identified. Pancreas: Pancreas is rather atrophic and fatty replaced. Spleen: Borderline splenomegaly. Adrenal glands: Normal. No mass. Kidneys and ureters: No solid renal mass or hydronephrosis. Stomach and bowel: No small bowel obstruction or free air. No overt mucosal thickening. Appendix: No evidence of appendicitis. Intraperitoneal space: Unremarkable. No free air. No suspicious fluid collection. Vasculature: No AAA or acute vascular lesion identified. Lymph nodes: No enlarged lymph nodes. Urinary bladder: Unremarkable as visualized. Reproductive: Mildly enlarged prostate. Bones/joints: Mild spine DJD. Soft tissues: No acute or suspicious finding noted. CT/[place] [id number] IMPRESSION: No acute finding. IMPRESSION: 1. No acute findings. 2. A few chronic findings above with mild hepatic steatosis.
[2022-12-07] VITALS (10 sets, daily range): BP systolic 102–120; BP diastolic 61–72; PULSE 67–93; RESP 16–19; TEMP 36.4–37.1; O2SAT 93–99
[2022-12-07] MEDS: sodium chloride 0.9% 1,000 ML 75 ML IV ×2 (00:28→09:14)
[2022-12-07 01:05] LABS: Thyroid Stimulating Hormone 0.57 uIU/mL (0.27-4.20)
[2022-12-07 01:06] LABS: Procalcitonin 15.78 ng/mL (0-0.5)
[2022-12-07] MEDS: acetaminophen 325 mg Tablet 650 MG PO (01:38)
[2022-12-07 06:18] LABS: Basophils % 0.4 %; Hematocrit 33.8 % (42.0-52.0); Lymphocytes # 1.7 10^3/uL (0.8-4.8); Lymphocytes % 15.2 %; Mean Corpuscular HGB Conc 32.5 g/dL (30.0-36.0); Mean Corpuscular Hemoglobin 26.8 pg (28.0-34.0); Mean Corpuscular Volume 82.4 fl (80-94); Mean Platelet Volume 11.1 fL (7.4-10.4); Monocytes # 0.8 10^3/uL (0.2-0.9); Monocytes % 7.5 %; Neutrophils # 8.31 10^3/uL (1.8-7.7); Neutrophils % 76.4 %; Nucleated Red Blood Cells % 0 %; Platelet Count 182 10^3/cmm (130-400); White Blood Count 10.9 10^3/uL (4.0-10.0)
[2022-12-07] MEDS: cefepime 2,000 MG in sodium chloride 0.9% (plus) 50 ML 100 MG IV (06:25)
[2022-12-07 06:30] LABS: Alanine Aminotransferase 12 U/L (0-41); Albumin Level 3.2 g/dL (3.5-5.2); Alkaline Phosphatase 64 U/L (40-130); Anion Gap 15.9 (5-19); Aspartate Amino Transferase 21 U/L (0-40); Blood Urea Nitrogen 11 mg/dL (6-20); Calcium 8.4 mg/dL (8.5-10.5); Carbon Dioxide 22 mmol/L (22-29); Chloride 89 mmol/L (98-107); Glomerular Filtration Rate 49.1 mL/min (90-130); Glucose 320 mg/dL (65-115); Magnesium 1.1 mg/dL (1.7-2.3); Osmolality Calculated 268 mOsm/kg (285-295); Potassium 3.9 mmol/L (3.5-5.1); Sodium 123 mmol/L (136-145); Total Bilirubin 0.7 mg/dL (0.15-1.2); Total Protein 7.2 g/dL (6.6-8.7)
[2022-12-07 06:32] LABS: INR 2.87 (0.8-1.2)
[2022-12-07] MEDS: pantoprazole DR 40 mg Tablet PO (09:15)
[2022-12-07] MEDS: vancomycin 1,500 MG/300 ML PIGGYBACK 200 MG IV (09:15)
--- NOTE | 2022-12-07 10:37 | PC.PHAR ---
PHARMACY TO DOSE CONSULT - VANCOMYCIN With the change in the patient's renal function, pharmacy re-calculated the patient's dose to 1500mg every 16 hours. This should give a predicted peak of 34.0 mcg/ml and a trough of 13.41 mcg/ml. Will draw a trough before the 4th dose. Pharmacy will continue to monitor the patient's renal function and make adjustments as necessary. Please let us know if there is anything else that we can do. Thanks, Albin Martinez, Pharm.D
[2022-12-07] MEDS: warfarin 5 mg Tablet PO (14:38)
[2022-12-07] MEDS: oxyCODONE-APAP 5-325 mg Tablet 1.5 TAB PO ×2 (14:39→20:05)
--- NOTE | 2022-12-07 16:16 | PM.PN ---
Subjective Subjective: Patient was seen and examined this morning he was complaining of generalized body pain, which is something not new for him.He denied any chest pain, shortness of breath, headache, abdominal pain, difficulty passing urine. Noted Tmax 102.7. Medications: Medication Review Details: Generic Name Dose Route Start Last Admin Trade Name Chaparro PRN Reason Stop Dose Admin Acetaminophen 650 mg 12/06/22 23:52 12/07/22 01:38 Acetaminophen 32 5 Mg Tablet PO 650 mg Q6H PRN Administration Mild/Mod Pain Or Temp >/= 101 Sodium Chloride 1,000 mls @ 125 m ls/hr 12/06/22 23:45 12/07/22 09:14 Sodium Chloride 0.9% IV 75 mls/hr .Q8H MALACHI Administration Cefepime HCl 2,000 mg/ Sodium 50 mls @ 100 mls/ hr 12/07/22 07:00 12/07/22 07:06 Chloride IV Infused Q12H MALACHI Infusion Protocol Oxycodone/Acetamin ophen 1.5 tab 12/07/22 12:32 12/07/22 14:39 Oxycodone-Apap 5 -325 Mg Tablet PO 1.5 tab Q4H PRN Administration MODERATE TO SEVER E PAIN Pantoprazole Sodiu m 40 mg 12/07/22 09:00 12/07/22 09:[address] 40 Mg Tablet PO 40 mg DAILY MALACHI Administration Warfarin Sodium 5 mg 12/07/22 14:00 12/07/22 14:38 Warfarin 5 Mg Ta blet PO 5 mg DAILY@1400 MALACHI Administration Vitals/I&O/Wt Last Vital Signs Temp 97.8 F 12/07/22 15:24 Pulse 73 12/07/22 15:24 Resp 16 12/07/22 15:24 BP 113/64 12/07/22 15:24 Pulse Ox 97 12/07/22 15:24 O2 Del Method Room Air 12/07/22 03:59 12/07/22 12/07/22 12/07/22 06:59 14:59 22:59 Intake Total 61.25 / 361.25 1800 / 1800 Output Total 750 / 750 Balance 61.25 / 361.25 1050 / 1050 Weight last 48 hrs Weight 96.729 kg Weight 96.332 kg Physical Exam Const: COMMON NORMALS: patient oriented x3 HENMT: COMMON NORMALS: normocephalic and atraumatic HEAD & SCALP: normocephalic and atraumatic Resp: COMMON NORMALS: clear to auscultation bilaterally AUSCULTATION: clear to auscultation bilaterally Cardio: COMMON NORMALS: regular rate, regular rhythm, S1 normal heart sound present, S2 normal heart sound present, No gallops present (Cardio), No murmurs present (Cardio), No rub (Cardio) and Peripheral pulses 2+ throughout RATE: regular rate RHYTHM: regular rhythm HEART SOUNDS: S1 normal heart sound present and S2 normal heart sound present PERIPHERAL PULSES: Peripheral pulses 2+ throughout OTHER: Ejection systolic click predominantly present in aortic area GI: COMMON NORMALS: Normal to inspection, nondistended, normoactive bowel sounds present, Soft to palpation, non-tender, No hepatosplenomegaly present and no masses AUSCULTATION: Yes normoactive bowel sounds PALPATION: Yes Soft to palpation and Yes No hepatosplenomegaly present RECTAL EXAM: Yes deferred Extremity: COMMON NORMALS: no clubbing, cyanosis or edema and no pedal edema Neuro: COMMON NORMALS: patient oriented x3 Data 12/07/22 05:12 12/07/22 05:12 Micro: Microbiology 12/06/22 18:45 Blood Culture - Preliminary Blood Strep agalactiae - (group b) 12/06/22 18:40 Blood Culture - Preliminary Blood A&P Assessment and plan (1) Aortic valve replaced: (2) Aortic stenosis: (3) Hyperlipidemia: (4) DM type 2 (diabetes mellitus, type 2): (5) Hematuria: (6) Asymptomatic microscopic hematuria: (7) Peripheral neuropathy: (8) Chronic anticoagulation: (9) Bacteremia: (10) Fever: Plan 52-year-old male with past medical history of diabetes, hypertension, aortic stenosis status mechanical aortic valve replacement, currently on warfarin, history of infective endocarditis, sick sinus syndrome status post pacemaker, was brought in with chief complaint of, intermittent fever for the last 3 days predominantly at evening, accompanied with chills, joint pain, night sweats, also having loose stools.He is currently being managed for. Assessment: Bacteremia: Blood culture is positive for: Strep agalactiae: 3/4 bottles. Lactic acid 1.2 Procalcitonin 15.[address] chest abdomen and pelvis: No acute finding 2D echo: Normal LV size and systolic function, LVEF of 65%,Prosthethic valve in aortic position, poorly visualized. Structurally normal mitral valve without significant stenosis or ?prolapse.? There is no mitral regurgitation,Aortic Valve ?Structurally normal aortic valve without significant sclerosis ?or stenosis.? There is no aortic regurgitation.?Aortic valve ?appears to be thickened and calcified Prosthethic valve in ?aortic position, poorly visualized,?Tricuspid Valve Structurally normal tricuspid valve without significant stenosis ?or regurgitation.?Pulmonary artery systolic pressure is normal. Pulmonic Valve?Structurally normal pulmonic valve without significant stenosis.?There is no pulmonic regurgitation. Currently patient is on broad-spectrum antibiotic vancomycin and Zosyn, cefepime has been discontinued, to obtain anaerobic coverage provided by Zosyn, though current blood culture is growing strep agalactiae, vancomycin should be good enough for it. Repeat blood culture has been ordered for Friday morning. Given the fact that the patient has prior history of infective endocarditis, and has a mechanical aortic valve, low threshold for doing a IRASEAM, given the fact that the mechanical aortic valve has been poorly visualized, on transthoracic echo, if the patient, continued to persistently spike, fever, or if blood culture remains positive, IRASEMA should be definitely pursed, this will be discussed with the patient. And accordingly a decision can be taken. Fever: Plan as above History of diabetes: Currently on Lantus and sliding scale insulin Monitor fingerstick glucose Hematuria: Urinalysis has shown urine RBC 80-100, urine WBC:40-55, urine nitrate negative, urine leukocyte esterase negative, Urine protein 3+,, urine bacteria is negative. Will follow with interval repeat UA. If hematuria persist. Patient will need urology consult as outpatient, for possible cystoscopy. History of sick sinus syndrome status post pacemaker Hyponatremia: Possibility of chronic hyponatremia Admission serum sodium is 124, Urine specific gravity:1.010 Follow urine random sodium Urine random chloride Serum osmolality Urine osmolality Random cortisol TSH:0.57 Was on IV hydration with normal saline. Monitor serum sodium Likely CKD: Versus ALEX on CKD: Baseline serum creatinine is unknown Admission serum creatinine 1.2 Current serum creatinine 1.5 Monitor intake output charting Monitor BMP Avoid nephrotoxic's Mechanical aortic valve: Currently on warfarin INR goal of 2.5-3.5 Pharmacy on board for warfarin dosing CODE STATUS: Full code DVT prophylaxis: Not needed warfarin will be good Attestations Medical Necessity Statement*: Needs to be in hospital for IV antibiotics. Coding Level of Care Code Acute Code for Chg Fwd Diagnoses Aortic valve replaced Z95.2 Aortic stenosis I35.0 Hyperlipidemia E78.5 DM type 2 (diabetes mellitus, type 2) E11.9 Hematuria R31.9 Asymptomatic microscopic hematuria R31.21 Peripheral neuropathy G62.9 Chronic anticoagulation Z79.01 Bacteremia R78.81 Fever R50.9
[2022-12-07 16:42] LABS: Glucose Point of Care 307 mg/dL (70-110)
[2022-12-07] MEDS: magnesium sulfate premix 2 GM/50 ML PIGGYBACK IV (17:42)
[2022-12-07] MEDS: insulin lispro 100 unit/1 mL SUBCUT ×2 (17:47→21:33)
[2022-12-07] MEDS: piperacillin-tazobactam 3.375 GM in sodium chloride 0.9% (plus) 50 ML IV (18:43)
[2022-12-07 20:21] LABS: Sodium 131 mmol/L (136-145)
[2022-12-07 21:27] LABS: Glucose Point of Care 310 mg/dL (70-110)
[2022-12-07] MEDS: insulin glargine 100 units/1 mL 20 UNIT SUBCUT (21:33)
--- NOTE | 2022-12-07 23:54 | USCV_ITS ---
Corby Spaulding Age: 52 Gender: M : 1970 Exam Date: 12/07/2022 13:35 Ordering Phys: Cris Zhong MD Technologist: Melo Cantu Exam Location: [facility] Indication: metal ao pros BP: 132 / 74 HR: 80 Rhythm: Sinus Technical Quality: Adequate MEASUREMENTS (Male / Female) Normal Values 2D ECHO LV Diastolic Diameter PLAX 3.1 cm 4.2 - 5.9 / 3.9 - 5.3 cm LV Systolic Diameter PLAX 2.4 cm IVS Diastolic Thickness 1.8 cm 0.6 - 1.0 / 0.6 - 0.9 cm IVS Systolic Thickness 2.1 cm LVPW Diastolic Thickness 1.3 cm 0.6 - 1.0 / 0.6 - 0.9 cm LVPW Systolic Thickness 1.4 cm LVOT Diameter 2.0 cm LV Ejection Fraction 2D Teich 45.8 % LV Ejection Fraction MOD 2C 53.0 % LV Ejection Fraction 2C AL 52.5 % LA Diameter 4.7 cm Aorta at Sinotubular Diameter 2.8 cm IVC Diameter 1.7 cm DOPPLER AV Peak Velocity 275.0 cm/s LVOT Peak Velocity 89.3 cm/s AV Area Cont Eq vti 1.2 cm squared AV Area Cont Eq pk 1.1 cm squared MV Area PHT 5.0 cm squared Mitral E to A Ratio 1.8 MV E' Velocity 57.5 cm/s Mitral E to MV E' Ratio 12.5 Mitral E to LV E' Lateral Ratio 10.6 Mitral E to LV E' Septal Ratio 15.2 TR Peak Velocity 282.7 cm/s TR Peak Gradient 32.0 mmHg TV Peak E Velocity 93.0 cm/s Right Atrial Pressure 3.0 mmHg Pulmonary Artery Systolic Pressu 35.0 mmHg FINDINGS Left Ventricle Normal left ventricular size, systolic function and mild LVH, with no regional wall motion abnormalities. Normal left ventricular wall thickness. Normal diastolic filling pattern. EF 65% Right Ventricle The right ventricle is normal in size and function. Pacer wire noted RV, RA Right Atrium The right atrium is normal in size. Left Atrium The left atrium is normal in size. Mitral Valve Structurally normal mitral valve without significant stenosis or prolapse. There is no mitral regurgitation. Aortic Valve Structurally normal aortic valve without significant sclerosis or stenosis. There is no aortic regurgitation. Aortic valve appears to be thickened and calcified Prosthethic valve in aortic position, poorly visualized. Aortic velocities appear to be normal for this valve type Tricuspid Valve Structurally normal tricuspid valve without significant stenosis or regurgitation. Pulmonary artery systolic pressure is normal. Pulmonic Valve Structurally normal pulmonic valve without significant stenosis. There is no pulmonic regurgitation. Pericardium Normal pericardium without effusion. Aorta Normal ascending aorta dimension. IVC The inferior vena cava appears normal. CONCLUSIONS Normal left ventricular size, systolic function and mild LVH, with no regional wall motion abnormalities. Normal left ventricular wall thickness. Normal diastolic filling pattern. EF 65% no significant valve abnormalities. No significant chamber abnormalities. Technically limited study. Prosthethic valve in aortic position, poorly visualized. Aortic velocities appear to be normal for this valve type Pacer lead noted in place Mingo Alexandra MD (Electronically Signed) Final Date: 07 Dec 2022 16:14 S
[2022-12-08] VITALS (12 sets, daily range): BP systolic 111–135; BP diastolic 70–81; PULSE 72–84; RESP 16–18; TEMP 36.6–37.3; O2SAT 94–99
[2022-12-08] MEDS: vancomycin 1,500 MG/300 ML PIGGYBACK 200 MG IV ×2 (00:29→15:31)
[2022-12-08] MEDS: oxyCODONE-APAP 5-325 mg Tablet 1.5 TAB PO ×5 (00:42→20:54)
[2022-12-08 01:59] LABS: Urine Random Chloride 15 mmol/L; Urine Random Sodium 19 mmol/L
[2022-12-08] MEDS: piperacillin-tazobactam 3.375 GM in sodium chloride 0.9% (plus) 50 ML IV ×3 (03:20→17:48)
[2022-12-08] MEDS: pantoprazole DR 40 mg Tablet PO ×2 (05:23→09:14)
[2022-12-08 05:32] LABS: Basophils # 0.1 10^3/uL (0.0-0.1); Basophils % 0.6 %; Eosinophils # 0.1 10^3/uL (0.0-0.8); Eosinophils % 1.5 %; Hematocrit 32.5 % (42.0-52.0); Hemoglobin 10.5 g/dL (11.7-16.6); Lymphocytes # 2.2 10^3/uL (0.8-4.8); Lymphocytes % 27.2 %; Mean Corpuscular HGB Conc 32.3 g/dL (30.0-36.0); Mean Corpuscular Hemoglobin 26.6 pg (28.0-34.0); Mean Corpuscular Volume 82.5 fl (80-94); Mean Platelet Volume 10.9 fL (7.4-10.4); Monocytes # 0.9 10^3/uL (0.2-0.9); Monocytes % 10.7 %; Neutrophils % 59.8 %; Nucleated Red Blood Cells % 0 %; Platelet Count 179 10^3/cmm (130-400); Red Blood Count 3.94 10^6/uL (4.1-5.3); Red Cell Distribution Width 13.1 % (12.1-15.1); White Blood Count 8.2 10^3/uL (4.0-10.0)
[2022-12-08 05:45] LABS: INR 3.84 (0.8-1.2)
[2022-12-08 05:55] LABS: Erythrocyte Sedimentation Rate 24 mm/hr (0-10)
[2022-12-08 06:00] LABS: Alanine Aminotransferase 12 U/L (0-41); Albumin Level 2.9 g/dL (3.5-5.2); Alkaline Phosphatase 61 U/L (40-130); Anion Gap 14.7 (5-19); Aspartate Amino Transferase 18 U/L (0-40); Blood Urea Nitrogen 12 mg/dL (6-20); C Reactive Protein 127.3 mg/L (0.0-4.9); Calcium 8.6 mg/dL (8.5-10.5); Carbon Dioxide 23 mmol/L (22-29); Chloride 95 mmol/L (98-107); Globulin 3.8 g/dL (1.3-4.6); Glucose 247 mg/dL (65-115); Osmolality Calculated 276 mOsm/kg (285-295); Potassium 3.7 mmol/L (3.5-5.1); Sodium 129 mmol/L (136-145); Total Bilirubin 0.4 mg/dL (0.15-1.2); Total Protein 6.7 g/dL (6.6-8.7)
[2022-12-08 06:03] LABS: Procalcitonin 12.09 ng/mL (0-0.5)
[2022-12-08 06:04] LABS: Cortisol Random 7.52 ug/dL (2.47-19.5)
[2022-12-08 06:39] LABS: Glucose Point of Care 251 mg/dL (70-110)
[2022-12-08] MEDS: insulin lispro 100 unit/1 mL SUBCUT ×4 (09:13→21:00)
[2022-12-08] MEDS: duloxetine 60 mg Capsule PO (09:14)
--- NOTE | 2022-12-08 10:18 | P.PN_ITS ---
Subjective Subjective: Patient was seen and examined this morning,Reports improvement in his symptoms,Continues to have hematuria, has been afebrile. WBC is trending down. Medications: Medication Review Details: Generic Name Dose Route Start Last Admin Trade Name Chaparro PRN Reason Stop Dose Admin Acetaminophen 650 mg 12/06/22 23:52 12/07/22 01:38 Acetaminophen 32 5 Mg Tablet PO 650 mg Q6H PRN Administration Mild/Mod Pain Or Temp >/= 101 Duloxetine HCl 60 mg 12/08/22 09:00 12/08/22 09:14 Duloxetine 60 Mg Capsule PO 60 mg DAILY MALACHI Administration Vancomycin/PEG/NAD A/Lysine/Water 1,500 mg in 300 m ls @ 200 mls/hr 12/08/22 00:00 12/08/22 02:11 Vancocin IV Infused Q16H MALACHI Infusion Piperacillin Sod/T azobactam 50 mls @ 12.5 mls /hr 12/07/22 16:30 12/08/22 03:20 Sod 3.375 gm/ So dium Chloride IV 12.5 mls/hr Q8H MALACHI Administration Protocol Insulin Glargine 20 unit 12/07/22 21:00 12/07/22 21:33 Insulin Glargine 100 Units/1 Ml SUBCUT 20 unit BEDTIME MALACHI Administration Insulin Human Lisp ro 0 unit 12/07/22 18:00 12/08/22 09:13 Insulin Lispro 1 00 Unit/1 Ml SUBCUT 8 unit WM&BEDTIME MALACHI Administration Protocol Oxycodone/Acetamin ophen 1.5 tab 12/07/22 12:32 12/08/22 05:23 Oxycodone-Apap 5 -325 Mg Tablet PO 1.5 tab Q4H PRN Administration MODERATE TO SEVER E PAIN Pantoprazole Sodiu m 40 mg 12/07/22 09:00 12/08/22 09:[address] 40 Mg Tablet PO 40 mg DAILY MALACHI Administration Pantoprazole Sodiu m 40 mg 12/08/22 06:00 12/08/22 05:[address] 40 Mg Tablet PO 40 mg DAILY@06 MALACHI Administration Warfarin Sodium 5 mg 12/07/22 14:00 12/07/22 14:38 Warfarin 5 Mg Ta blet PO 5 mg DAILY@1400 MALACHI Administration Vitals/I&O/Wt Last Vital Signs Temp 98.5 F 12/08/22 08:00 Pulse 84 12/08/22 08:00 Resp 17 12/08/22 08:00 BP 118/73 12/08/22 08:00 Pulse Ox 95 12/08/22 08:00 O2 Del Method Room Air 12/08/22 08:00 12/07/22 12/08/22 12/08/22 22:59 06:59 14:59 Intake Total 1200 / 3000 300 / 3300 600 / 600 Output Total 300 / 1050 Balance 1200 / 2250 0 / 2250 600 / 600 Weight last 48 hrs Weight 96.729 kg Weight 96.332 kg Physical Exam Const: COMMON NORMALS: patient oriented x3 HENMT: COMMON NORMALS: normocephalic and atraumatic HEAD & SCALP: normocephalic and atraumatic Resp: COMMON NORMALS: clear to auscultation bilaterally AUSCULTATION: clear to auscultation bilaterally Cardio: COMMON NORMALS: regular rate, regular rhythm, S1 normal heart sound present, S2 normal heart sound present, No gallops present (Cardio), No murmurs present (Cardio), No rub (Cardio) and Peripheral pulses 2+ throughout RATE: regular rate RHYTHM: regular rhythm HEART SOUNDS: S1 normal heart sound present and S2 normal heart sound present PERIPHERAL PULSES: Peripheral pulses 2+ throughout OTHER: Ejection systolic click predominantly present in aortic area GI: COMMON NORMALS: Normal to inspection, nondistended, normoactive bowel sounds present, Soft to palpation, non-tender, No hepatosplenomegaly present and no masses AUSCULTATION: Yes normoactive bowel sounds PALPATION: Yes Soft to palpation and Yes No hepatosplenomegaly present RECTAL EXAM: Yes deferred Extremity: COMMON NORMALS: no clubbing, cyanosis or edema and no pedal edema Neuro: COMMON NORMALS: patient oriented x3 Data 12/08/22 05:00 12/08/22 14:18 Micro: Microbiology 12/06/22 18:45 Blood Culture - Preliminary Blood Strep agalactiae - (group b) 12/06/22 18:40 Blood Culture - Preliminary Blood A&P Assessment and plan (1) Aortic valve replaced: (2) Aortic stenosis: (3) Hyperlipidemia: (4) DM type 2 (diabetes mellitus, type 2): (5) Hematuria: (6) Asymptomatic microscopic hematuria: (7) Peripheral neuropathy: (8) Chronic anticoagulation: (9) Bacteremia: (10) Fever: Plan 52-year-old male with past medical history of diabetes, hypertension, aortic stenosis status mechanical aortic valve replacement, currently on warfarin, history of infective endocarditis, sick sinus syndrome status post pacemaker, was brought in with chief complaint of, intermittent fever for the last 3 days predominantly at evening, accompanied with chills, joint pain, night sweats, also having loose stools.He is currently being managed for. Assessment: Bacteremia: Blood culture is positive for: Strep agalactiae: 3/4 bottles. Lactic acid 1.2 Procalcitonin 15.78 Follow repeat procalcitonin; ESR: CRP: CT chest abdomen and pelvis: No acute finding 2D echo: Normal LV size and systolic function, LVEF of 65%,Prosthethic valve in aortic position, poorly visualized. Structurally normal mitral valve without significant stenosis or ?prolapse.? There is no mitral regurgitation,Aortic Valve ?Structurally normal aortic valve without significant sclerosis ?or stenosis.? There is no aortic regurgitation.?Aortic valve ?appears to be thickened and calcified Prosthethic valve in ?aortic position, poorly visualized,?Tricuspid Valve Structurally normal tricuspid valve without significant stenosis ?or regurgitation.?Pulmonary artery systolic pressure is normal. Pulmonic Valve?Structurally normal pulmonic valve without significant stenosis.?There is no pulmonic regurgitation. Currently patient is on broad-spectrum antibiotic vancomycin and Zosyn, cefepime has been discontinued, to obtain anaerobic coverage provided by Zosyn, though current blood culture is growing strep agalactiae, vancomycin and zosyn should be good enough for it. Repeat blood culture has been ordered for Friday morning. Given the fact that the patient has prior history of infective endocarditis, and has a mechanical aortic valve, IRASEMA has been planned for morning. Tierney Criteria has been reviewed. Blood culture positive for typical organism for Endocarditis Has predisposing heart condition, has fever, possible immunological phenomena like GN: Points out towards likely definitive endocarditis.ID Consult : When taylor ilable for Abx regimen. Cardiology on board. Right great toe wound: CT foot RT w con: Soft tissue ulcer and edema in the great toe with adjacent focal periosteal reaction along the medial margin of the distal phalanx. Question osteomyelitis. Will order MRI of the feet without contrast.' Consult podiatry when available. Currently appropriately covered with broad-spectrum antibiotics Fever: Plan as above History of diabetes: Currently on Lantus and sliding scale insulin Monitor fingerstick glucose Hematuria:Possibility of post streptococcal GN exist though it is usually seen with group A Strep. Patient also has prior h/o vasculitis. Urinalysis has shown urine RBC 80-100, urine WBC:40-55, urine nitrate negative, urine leukocyte esterase negative, Urine protein 3+,, urine bacteria is negative. Will follow with interval repeat UA. If hematuria persist. Patient will need urology/Nephrology consult. History of sick sinus syndrome status post pacemaker Hyponatremia: Admission serum sodium is 124, Urine specific gravity:1.010 Follow urine random sodium: 19 Urine random chloride: 15 Serum osmolality: Urine osmolality: Random cortisol:7.52 TSH:0.57 Was on IV hydration with normal saline. Has been placed on free water restriction 1000 cc Monitor serum sodium Likely CKD: Versus ALEX on CKD: Baseline serum creatinine is unknown Admission serum creatinine 1.2 Current serum creatinine 1.5 Monitor intake output charting Monitor BMP Avoid nephrotoxic's Mechanical aortic valve: Currently on warfarin INR goal of 2.5-3.5 Pharmacy on board for warfarin dosing CODE STATUS: Full code DVT prophylaxis: Not needed warfarin will be good Attestations Medical Necessity Statement*: Needs to be in hospital for IV antibiotics. Coding Level of Care Code Acute Code for Chg Fwd Diagnoses Aortic valve replaced Z95.2 Aortic stenosis I35.0 Hyperlipidemia E78.5 DM type 2 (diabetes mellitus, type 2) E11.9 Hematuria R31.9 Asymptomatic microscopic hematuria R31.21 Peripheral neuropathy G62.9 Chronic anticoagulation Z79.01 Bacteremia R78.81 Fever R50.9
--- NOTE | 2022-12-08 10:23 | CTR_ITS ---
PROCEDURE INFORMATION: Exam: CT Right Lower Extremity With Contrast, Foot Exam date and time: 12/08/2022 12:02 PM Age: 52 years old Clinical indication: Other: Wound to right great toe TECHNIQUE: Imaging protocol: CT of the right lower extremity with intravenous contrast was performed. Exam focused on the foot. Radiation optimization: All CT scans at this facility use at least one of these dose optimization techniques: automated exposure control; mA and/or kV adjustment per patient size (includes targeted exams where dose is matched to clinical indication); or iterative reconstruction. Contrast material: OMNI 350; Contrast volume: 100 ml; Contrast route: INTRAVENOUS (IV); REPORTING DATA: Count of CT and Cardiac NM exams in prior 12 months: This patient has received [address] and 0 known cardiac nuclear medicine studies in the 12 months prior to the current study. COMPARISON: No relevant prior studies available. RADIATION DOSE METRICS: Total DLP (mGy-cm): 158.24 FINDINGS: Bones/joints: Alignment is normal. There is diffuse dorsiflexion of the toes at the MTP joints. No bone erosion. No acute fracture. There are plantar and superior calcaneal enthesophytes of uncertain significance. There is subtle focal periosteal reaction along the medial margin of the distal 1st phalanx visible on axial series 11, image 32 and coronal series 15, image 118. Soft tissues: Focal soft tissue edema and shallow ulcer in the great toe. No soft tissue gas. CT/CT foot RT w con [id number] IMPRESSION: Soft tissue ulcer and edema in the great toe with adjacent focal periosteal reaction along the medial margin of the distal phalanx. Question osteomyelitis. There is no bone erosion to confirm osteomyelitis. MRI may provide more definitive evaluation.
--- NOTE | 2022-12-08 11:00 | PC.PHAR ---
PHARMACY TO DOSE - WARFARIN Patient's INR came back this morning at 3.84, we will hold today's dose and resume tomorrow
--- NOTE | 2022-12-08 11:46 | P.CONIM_ITS ---
Providers/Reason For Consult Consulting Physician/Specialty*: Rita Alexandra Reason for Consult*: VHD Attending Physician: Quang Goodwin MD Primary Care Provider: Rogers Canseco DO History of Present Illness History of Present Illness Corby Spaulding is a 52 year old male known to have essential hypertension, insulin-dependent diabetes, aortic stenosis s/p aortic valve replacement with prosthetic valve years unknown on Coumadin therapy, sick sinus syndrome status post permanent pacemaker [facility] unknown, thoracic aortic aneurysm s/p repair and replacement 2002, acute on chronic renal insufficiency, chronic anemia, diabetic foot ulcer, history of endocarditis, and Schoenlein purpura diagnosed at [facility] via biopsy, follows Dr. Shahab Olson at [facility], who is admitted for evaluation of * Intermittent high-grade fever for the past 72 hours prior to admission * Generalized body aches joint pains on and off for the past 1 week * Intermittent nausea for the past 1 week. * Recent episode of of diarrhea currently improved. Cognitive patient he was at his baseline state of health and about a week prior to presentation since when he has been having problems with lethargy weakness and tiredness with intermittent generalized body aches with nausea joint pains and high-grade fever of 202.2 ?F over the past 72 hours prior to admission on 12/06/2022. He does report of intermittent episodes of chills and rigors this mostly occur at night at times associated joint discomfort. He denies any episode of chest pain, shortness breath on exertion. Regarding recent past history, patient did have an episode of diarrhea which resolved. He also reports abdominal diabetic ulcer for which he sees Dr. Hodgson visual supervisor in [facility] which has been improving. Regarding. Previous cardiac history, patient has undergone 3 open heart surgery as per patient report which involved aortic replacement with placement of a prosthetic valve in the aortic position. He states that he had thoracic aortic aneurysm which underwent repair 2002. He also developed sick sinus syndrome for which appointment pacemaker was implanted although further details of which are not available at this time. Hospital course at [facility] Since his admission on 12/06/2022, patient has been treated and evaluated for f ever unknown origin, started empirically on IV antibiotics and echocardiogram was performed which was of poor quality secondary to body habitus, overall LV function within normal limits although determination of vegetations on the pacer wires or the aortic valve could not be completed. He was started on IV vancomycin and cefepime . Blood cultures were drawn which were positive for Streptococcus 3 out of 5 bottles following which cardiology was consulted for transesophageal echo echocardiography. Review of Systems General: Reports: 10 or more systems reviewed and unremarkable except in HPI and below Eyes: Denies: change in vision ENMT: Denies: nasal discharge or post nasal drip Card: Reports: other Resp: Reports: other GI: Denies: abdominal pain, nausea, vomiting or heartburn Neuro: Denies: weakness in extremities or difficulty walking Medications/Allergies Home Medications Medication Instructions Recorded Confirmed Last Taken Type metoprolol succinate 50 mg 50 mg PO DAILY@06 01/03/20 12/06/22 12/04/22 History tablet,extended release 24 hr alprazolam 0.5 mg tablet (Xanax) 0.5 mg PO BID PRN Anxiety 06/20/20 12/06/22 06/20/20 History blood-glucose meter,continuous #1 ea 09/13/20 12/07/22 Unknown Rx (Dexcom G6 Water Purification Chemist) blood-glucose sensor (Dexcom G6 #3 ea 05/17/21 12/07/22 Unknown Rx Sensor device) blood-glucose transmitter (Dexcom #1 ea 05/17/21 12/07/22 Unknown Rx G6 Transmitter device) pantoprazole 40 mg tablet,delayed 40 mg PO DAILY@06 #90 tabs 06/04/21 12/06/22 12/04/22 Rx release duloxetine 60 mg capsule,delayed 60 mg PO DAILY #30 caps 01/07/22 12/06/22 12/04/22 Rx release tadalafil 20 mg tablet 20 mg PO DAILY PRN sexual activity 03/04/22 12/06/22 Unknown Rx #20 tabs furosemide 40 mg tablet 20 mg PO DAILY PRN Edema 12/06/22 12/06/22 Unknown History insulin glargine 100 30 unit SUBCUT QAM 12/06/22 12/06/22 12/04/22 History unit-lixisenatide 33 mcg/mL subcutaneous pen (Soliqua 100/33) oxycodone-acetaminophen 7.5 mg-325 1 tab PO Q4H PRN Pain 12/06/22 12/06/22 U nknown History mg tablet warfarin 4 mg tablet 6 mg PO DAILY 12/06/22 12/06/22 12/05/22 History Allergies Allergy/AdvReac Type Severity Reaction Status Date / Time doxycycline Allergy ADR-Gastrointestinal Verified 03/04/22 14:43 Upset prochlorperazine Allergy Unknown Verified 03/04/22 14:43 [From Compazine] Current Medications Generic Name Dose Route Start Last Admin Trade Name Freq PRN Reason Stop Dose Admin Acetaminophen 650 mg 12/06/22 23:52 12/07/22 01:38 Acetaminophen 325 Mg Tablet PO 650 mg Q6H PRN Administration Mild/Mod Pain Or Temp >/= 101 Duloxetine HCl 60 mg 12/08/22 09:00 12/08/22 09:14 Duloxetine 60 Mg Capsule PO 60 mg DAILY MALACHI Administration Vancomycin/PEG/NADA/Lysine/Water 1,500 mg in 300 mls @ 200 mls/hr 12/08/22 00:00 12/08/22 02:11 Vancocin IV Infused Q16H MALACHI Infusion Piperacillin Sod/Tazobactam 50 mls @ 12.5 mls/hr 12/07/22 16:30 12/08/22 10:19 Sod 3.375 gm/ Sodium Chloride IV 12.5 mls/hr Q8H MALACHI Administration Protocol Insulin Glargine 20 unit 12/07/22 21:00 12/07/22 21:33 Insulin Glargine 100 Units/1 Ml SUBCUT 20 unit BEDTIME MALACHI Administration Insulin Human Lispro 0 unit 12/07/22 18:00 12/08/22 09:13 Insulin Lispro 100 Unit/1 Ml SUBCUT 8 unit WM&BEDTIME MALACHI Administration Protocol Oxycodone/Acetaminophen 1.5 tab 12/07/22 12:32 12/08/22 10:18 Oxycodone-Apap 5-325 Mg Tablet PO 1.5 tab Q4H PRN Administration MODERATE TO SEVERE PAIN Pantoprazole Sodium 40 mg 12/07/22 09:00 12/08/22 09:[address] 40 Mg Tablet PO 40 mg DAILY MALACHI Administration Pantoprazole Sodium 40 mg 12/08/22 06:00 12/08/22 05:[address] 40 Mg Tablet PO 40 mg DAILY@06 MALACHI Administration Warfarin Sodium 5 mg 12/07/22 14:00 12/07/22 14:38 Warfarin 5 Mg Tablet PO 5 mg DAILY@1400 MALACHI Administration PFSH Acute PFSH: Medical History (Updated 12/08/22 @ 11:49 by Jasmine Alexandra MD) Aortic aneurysm, thoracic sp Repair Aortic stenosis sp Prosthetic AVR Asymptomatic microscopic hematuria DM type 2 (diabetes mellitus, type 2) Erectile dysfunction Hematuria Hyperlipidemia Hypertension Leukocytoclastic vasculitis Sick sinus syndrome sp pacemaker placement Steroid-induced hyperglycemia Surgical History Aortic valve replaced History of open heart surgery History of 3 open heart surgeries for aortic valve History of permanent cardiac pacemaker placement S/P ascending aortic aneurysm repair Family History Denies family history of CAD (coronary artery disease) Social History Smoking and tobacco status: never smoked Second hand smoke exposure: No Alcohol intake: former Substance/Drug Use: unknown Adopted: No Caregiver/support person: No Lives independently: No Household members: spouse Marital status: Current occupational status: disabled Vitals/I&O/Wt Last Vital Signs Temp 98.5 F 12/08/22 08:00 Pulse 84 12/08/22 08:00 Resp 17 12/08/22 10:18 BP 118/73 12/08/22 08:00 Pulse Ox 95 12/08/22 08:00 O2 Del Method Room Air 12/08/22 08:00 12/07/22 12/08/22 12/08/22 22:59 06:59 14:59 Intake Total 1200 / 3000 300 / 3300 650 / 650 Output Total 300 / 1050 Balance 1200 / 2250 0 / 2250 650 / 650 Weight last 48 hrs Weight 213 lb 4 oz Weight 212 lb 6 oz Physical Exam HENMT: COMMON NORMALS: normocephalic and atraumatic HEAD & SCALP: normocephalic and atraumatic Resp: COMMON NORMALS: clear to auscultation bilaterally AUSCULTATION: clear to auscultation bilaterally Cardio: COMMON NORMALS: regular rate, regular rhythm, S1 normal heart sound present, S2 normal heart sound present, No gallops present (Cardio), No rub (Cardio) and Peripheral pulses 2+ throughout RATE: regular rate RHYTHM: regular rhythm HEART SOUNDS: S1 normal heart sound present and S2 normal heart sound present PERIPHERAL PULSES: Peripheral pulses 2+ throughout OTHER: Ejection systolic click predominantly present in aortic area with 2/6 systolic murmur GI: COMMON NORMALS: Normal to inspection, nondistended, normoactive bowel sounds present, Soft to palpation, non-tender, No hepatosplenomegaly present and no masses AUSCULTATION: Yes normoactive bowel sounds PALPATION: Yes Soft to palpation and Yes No hepatosplenomegaly present Extremity: COMMON NORMALS: no clubbing, cyanosis or edema and no pedal edema Data 12/08/22 05:00 12/08/22 05:00 Micro: Microbiology 12/06/22 16:45 Urine Culture - Final Urine,Clean Catch 12/06/22 18:45 Blood Culture - Preliminary Blood Strep agalactiae - (group b) A&P Assessment and plan (1) Fever of unknown origin: * Agree with current treatment as outlined by Dr. Goodwin and the hospitalist service. * Will arrange for transesophageal echocardiography for further determination and exclusion of endocarditis. * Will continue close telemetry monitoring. * Will arrange for pacemaker evaluation over the next 24 to 48 hours * Regarding differential diagnosis, patient has been growing Streptococcus agalactaie, which could occur secondary to skin infections, endocarditis or urinary infection. (2) Aortic stenosis: * Will arrange to continue Coumadin at this time maintaining INR between 2.5- 3.5. * SBE prophylaxis will be recommended we will check serial Chem-7 CBC and correct as needed (3) Aortic aneurysm, thoracic: * A CT scan of the chest and abdomen has been completed which did not reveal any significant concerns regarding the thoracic aortic aneurysm, would at this time reassured patient and family from that perspective. (4) DM type 2 (diabetes mellitus, type 2): * Will defer treatment to hospital service at this time. Coding Level of Care Code Acute Code for [facility] Diagnoses Fever of unknown origin R50.9 Aortic stenosis I35.0 Aortic aneurysm, thoracic I71.20 DM type 2 (diabetes mellitus, type 2) E11.9
[2022-12-08 11:47] LABS: Glucose Point of Care 298 mg/dL (70-110)
[2022-12-08] MEDS: iohexol 350 mg/mL 500 mL Btl (per mL) IV (12:09)
[2022-12-08 14:53] LABS: Sodium 126 mmol/L (136-145)
[2022-12-08 16:39] LABS: Glucose Point of Care 289 mg/dL (70-110)
[2022-12-08 20:48] LABS: Glucose Point of Care 289 mg/dL (70-110)
[2022-12-08] MEDS: sodium chloride 0.9% 500 ML IV (20:56)
[2022-12-08] MEDS: insulin glargine 100 units/1 mL 20 UNIT SUBCUT (21:00)
[2022-12-09] VITALS (11 sets, daily range): BP systolic 117–146; BP diastolic 71–81; PULSE 18–87; RESP 16–19; TEMP 36.6–37.1; O2SAT 94–98
[2022-12-09] MEDS: piperacillin-tazobactam 3.375 GM in sodium chloride 0.9% (plus) 50 ML IV ×3 (01:52→20:59)
[2022-12-09] MEDS: oxyCODONE-APAP 5-325 mg Tablet 1.5 TAB PO ×4 (01:55→21:01)
[2022-12-09 05:43] LABS: Basophils # 0.1 10^3/uL (0.0-0.1); Basophils % 0.6 %; Eosinophils # 0.2 10^3/uL (0.0-0.8); Hemoglobin 11.3 g/dL (11.7-16.6); Lymphocytes # 2.4 10^3/uL (0.8-4.8); Lymphocytes % 26.8 %; Mean Corpuscular HGB Conc 32.3 g/dL (30.0-36.0); Mean Corpuscular Hemoglobin 26.9 pg (28.0-34.0); Mean Corpuscular Volume 83.3 fl (80-94); Mean Platelet Volume 10.9 fL (7.4-10.4); Monocytes # 0.7 10^3/uL (0.2-0.9); Monocytes % 7.3 %; Neutrophils # 5.66 10^3/uL (1.8-7.7); Neutrophils % 63.1 %; Nucleated Red Blood Cells % 0 %; Platelet Count 216 10^3/cmm (130-400); Red Cell Distribution Width 13.2 % (12.1-15.1)
[2022-12-09 05:59] LABS: INR 3.26 (0.8-1.2)
[2022-12-09 06:06] LABS: Alanine Aminotransferase 10 U/L (0-41); Alkaline Phosphatase 64 U/L (40-130); Anion Gap 12.8 (5-19); Aspartate Amino Transferase 15 U/L (0-40); Blood Urea Nitrogen 9 mg/dL (6-20); Calcium 9.3 mg/dL (8.5-10.5); Carbon Dioxide 23 mmol/L (22-29); Chloride 99 mmol/L (98-107); Globulin 4.2 g/dL (1.3-4.6); Glomerular Filtration Rate 70.3 mL/min (90-130); Glucose 194 mg/dL (65-115); Osmolality Calculated 276 mOsm/kg (285-295); Potassium 3.8 mmol/L (3.5-5.1); Sodium 131 mmol/L (136-145); Total Bilirubin 0.5 mg/dL (0.15-1.2); Total Protein 7.2 g/dL (6.6-8.7)
[2022-12-09 06:29] LABS: Glucose Point of Care 193 mg/dL (70-110)
[2022-12-09] MEDS: vancomycin 1,500 MG/300 ML PIGGYBACK 200 MG IV (08:27)
[2022-12-09] MEDS: pantoprazole DR 40 mg Tablet PO (08:28)
[2022-12-09] MEDS: duloxetine 60 mg Capsule PO (08:28)
--- NOTE | 2022-12-09 10:00 | USCV_ITS ---
Corby Spaulding Age: 52 Gender: M : 1970 Exam Date: 12/09/2022 10:14 Ordering Phys: Jasmine Alexandra MD ([email or web address]) Technologist: Eliazar Alvarez Exam Location: [facility] [place] Indication: Cardiac assessment Endocarditis BP: / HR: Rhythm: Sinus Technical Quality: Adequate MEASUREMENTS (Male / Female) Normal Values Medications Complications none Proc. Components FINDINGS Left Ventricle Normal left ventricular size, systolic function and wall thickness, with no regional wall motion abnormalities. EF 55% Normal left ventricular wall thickness. Normal diastolic filling pattern. Right Ventricle The right ventricle is normal in size catheter/pacemaker wire visualized in the right ventricle. No vegetations noted Right Atrium The right atrium is normal in size. Left Atrium The left atrium is normal in size. LA Appendage The LA appendage is normal. IA Septum The interatrial septum is normal. Mitral Valve Structurally normal mitral valve without significant stenosis or prolapse. There is no mitral regurgitation. No vegetations Aortic Valve There is no aortic regurgitation. Prosthetic valve noted with normal velocities. No vegetations identified Tricuspid Valve Structurally normal tricuspid valve without significant stenosis or regurgitation. Pulmonary artery systolic pressure is normal. Pulmonic Valve Structurally normal pulmonic valve without significant stenosis. There is no pulmonic regurgitation. Pericardium Normal pericardium without effusion. Aorta Normal ascending aorta dimension. CONCLUSIONS Normal left ventricular size, systolic function and wall thickness, with no regional wall motion abnormalities. EF 55% Normal left ventricular wall thickness. Normal diastolic filling pattern. The right ventricle is normal in size catheter/pacemaker wire visualized in the right ventricle. No vegetations noted. There is no aortic regurgitation. Prosthetic valve noted with normal velocities. No vegetations identified. No pericardial effusion Mingo Alexandra MD (Electronically Signed) Final Date: 09 Dec 2022 13:52 Amended: 09 Dec 2022 16:27 C
--- NOTE | 2022-12-09 10:10 | P.ANESASSM_ITS ---
Pre-Anesthetic Assessment Height/Weight: Height 1.83 m Weight 96.729 kg Temp Pulse Resp BP Pulse Ox O2 Del Method 98.6 F 78 18 128/76 97 Room Air 12/09/22 08:00 12/09/22 08:00 12/09/22 08:28 12/09/22 08:00 12/09/22 08:00 12/09/22 08:00 Preop Diagnosis: bacteremia IRASEMA Familial anesthetic complications: None Was Beta Karolina taken within 24 hours: N/A Was Clonidine taken within 24 hours: N/A Last intake: > 8hrs Social No alcohol and No tobacco Exam alert, oriented x 3, clear to auscultation bilaterally and regular rate & rhythm Airway Mallampati: Class III Dentition: other (missing) Pulmonary Sleep Apnea CV/HEM Hypertension asceneding Throacic aortic aneurysm s/p mario graft and AVR replacement w/ hx multiple episodes IE SSS w/ pacemaker GI Gastroesophageal Reflux Disease (none right now) Metabolic Diabetes Mellitus Anesthetic Plan ASA status: 4 Anesthesia: MAC Risk of > 500 ml blood loss (7ml/kg in children): No Medications/Allergies Home Medications Medication Instructions Recorded Confirmed Last Taken Type metoprolol succinate 50 mg 50 mg PO DAILY@06 01/03/20 12/06/22 12/04/22 History tablet,extended release 24 hr alprazolam 0.5 mg tablet (Xanax) 0.5 mg PO BID PRN Anxiety 06/20/20 12/06/22 06/20/20 History blood-glucose meter,continuous #1 ea 09/13/20 12/07/22 Unknown Rx (Dexcom G6 Release Manager) blood-glucose sensor (Dexcom G6 #3 ea 05/17/21 12/07/22 Unknown Rx Sensor device) blood-glucose transmitter (Dexcom #1 ea 05/17/21 12/07/22 Unknown Rx G6 Transmitter device) pantoprazole 40 mg tablet,delayed 40 mg PO DAILY@06 #90 tabs 06/04/21 12/06/22 12/04/22 Rx release duloxetine 60 mg capsule,delayed 60 mg PO DAILY #30 caps 01/07/22 12/06/22 12/04/22 Rx release tadalafil 20 mg tablet 20 mg PO DAILY PRN sexual activity 03/04/22 12/06/22 Unknown Rx #20 tabs furosemide 40 mg tablet 20 mg PO DAILY PRN Edema 12/06/22 12/06/22 Unknown History insulin glargine 100 30 unit SUBCUT QAM 12/06/22 12/06/22 12/04/22 History unit-lixisenatide 33 mcg/mL subcutaneous pen (Soliqua ) oxycodone-acetaminophen 7.5 mg-325 1 tab PO Q4H PRN Pain 12/06/22 12/06/22 Unknown History mg tablet warfarin 4 mg tablet 6 mg PO DAILY 12/06/22 12/06/22 12/05/22 History Allergies Allergy/AdvReac Type Severity Reaction Status Date / Time doxycycline Allergy ADR-Gastrointestinal Verified 03/04/22 14:43 Upset prochlorperazine Allergy Unknown Verified 03/04/22 14:43 [From Compazine] Current Medications Generic Name Dose Route Start Last Admin Trade Name Freq PRN Reason Stop Dose Admin Acetaminophen 650 mg 12/06/22 23:52 12/07/22 01:38 Acetaminophen 325 Mg Tablet PO 650 mg Q6H PRN Administration Mild/Mod Pain Or Temp >/= 101 Duloxetine HCl 60 mg 12/08/22 09:00 12/09/22 08:28 Duloxetine 60 Mg Capsule PO 60 mg DAILY MALACHI Administration Vancomycin/PEG/NADA/Lysine/Water 1,500 mg in 300 mls @ 200 mls/hr 12/08/22 00:00 12/09/22 08:27 Vancocin IV 200 mls/hr Q16H MALACHI Administration Piperacillin Sod/Tazobactam 50 mls @ 12.5 mls/hr 12/07/22 16:30 12/09/22 06: 37 Sod 3.375 gm/ Sodium Chloride IV Infused Q8H MALACHI Infusion Protocol Insulin Glargine 20 unit 12/07/22 21:00 12/08/22 21:00 Insulin Glargine 100 Units/1 Ml SUBCUT 20 unit BEDTIME MALACHI Administration Insulin Human Lispro 0 unit 12/07/22 18:00 12/09/22 07:57 Insulin Lispro 100 Unit/1 Ml SUBCUT Not Given WM&BEDTIME MALACHI Protocol Oxycodone/Acetaminophen 1.5 tab 12/07/22 12:32 12/09/22 08:28 Oxycodone-Apap 5-325 Mg Tablet PO 1.5 tab Q4H PRN Administration MODERATE TO SEVERE PAIN Pantoprazole Sodium 40 mg 12/07/22 09:00 12/09/22 08:[address] 40 Mg Tablet PO 40 mg DAILY MALACHI Administration Pantoprazole Sodium 40 mg 12/08/22 06:00 12/09/22 07:[address] 40 Mg Tablet PO Not Given DAILY@06 [facility] Warfarin Sodium 5 mg 12/07/22 14:00 12/07/22 14:38 Warfarin 5 Mg Tablet PO 5 mg DAILY@1400 [facility] Administration Additional Medication Information Generic Name Dose Route Start Last Admin Trade Name Chaparro PRN Reason Stop Dose Admin Acetaminophen 650 mg 12/06/22 23:52 12/07/22 01:38 Acetaminophen 325 Mg Tablet PO 650 mg Q6H PRN Administration Mild/Mod Pain Or Temp >/= 101 Duloxetine HCl 60 mg 12/08/22 09:00 12/08/22 09:14 Duloxetine 60 Mg Capsule PO 60 mg DAILY MALACHI Administration Vancomycin/PEG/NADA/Lysine/Water 1,500 mg in 300 mls @ 200 mls/hr 12/08/22 00:00 12/08/22 02:11 Vancocin IV Infused Q16H MALACHI Infusion Piperacillin Sod/Tazobactam 50 mls @ 12.5 mls/hr 12/07/22 16:30 12/08/22 03:20 Sod 3.375 gm/ Sodium Chloride IV 12.5 mls/hr Q8H [facility] Administration Protocol Insulin Glargine 20 unit 12/07/22 21:00 12/07/22 21:33 Insulin Glargine 100 Units/1 Ml SUBCUT 20 unit BEDTIME MALACHI Administration Insulin Human Lispro 0 unit 12/07/22 18:00 12/08/22 09:13 Insulin Lispro 100 Unit/1 Ml SUBCUT 8 unit WM&BEDTIME [facility] Administration Protocol Oxycodone/Acetaminophen 1.5 tab 12/07/22 12:32 12/08/22 05:23 Oxycodone-Apap 5-325 Mg Tablet PO 1.5 tab Q4H PRN Administration MODERATE TO SEVERE PAIN Pantoprazole Sodium 40 mg 12/07/22 09:00 12/08/22 09:[address] 40 Mg Tablet PO 40 mg DAILY MALACHI Administration Pantoprazole Sodium 40 mg 12/08/22 06:00 05/28/23 05:[address] 40 Mg Tablet PO 40 mg DAILY@06 [facility] Administration Warfarin Sodium 5 mg 12/07/22 14:00 12/07/22 14:38 Warfarin 5 Mg Tablet PO 5 mg DAILY@1400 [facility] Anesthesia Medical History (Updated 12/08/22 @ 11:49 by Jasmine Alexandra MD) Aortic aneurysm, thoracic sp Repair Aortic stenosis sp Prosthetic AVR Asymptomatic microscopic hematuria DM type 2 (diabetes mellitus, type 2) Erectile dysfunction Hematuria Hyperlipidemia Hypertension Leukocytoclastic vasculitis Sick sinus syndrome sp pacemaker placement Steroid-induced hyperglycemia Surgical History Aortic valve replaced History of open heart surgery History of 3 open heart surgeries for aortic valve History of permanent cardiac pacemaker placement S/P ascending aortic aneurysm repair Family History Denies family history of CAD (coronary artery disease) Social History Smoking and tobacco status: never smoked Second hand smoke exposure: No Alcohol intake: former Substance/Drug Use: unknown Adopted: No Caregiver/support person: No Lives independently: No Household members: spouse Marital status: Current occupational status: disabled Data Anesthesia 12/09/22 05:10 12/09/22 05:10 Short CBC 12/08/22 12/09/22 Range/Units 05:00 05:10 WBC 8.2 9.0 (4.0-10.0) 10^3/uL Hgb 10.5 L 11.3 L (11.7-16.6) g/dL Hct 32.5 L 35.0 L (42.0-52.0) % MCV 82.5 83.3 (80-94) fl Plt Count 179 216 (130-400) 10^3/cmm Neut % (Auto) 59.8 63.1 % Neut # (Auto) 4.90 5.66 (1.8-7.7) 10^3/uL BMP 12/07/22 12/08/22 12/08/22 19:59 05:00 14:18 Sodium 131 L 129 L 126 L Potassium 3.7 Chloride 95 L Carbon Dioxide 23 BUN 12 Creatinine 1.3 H Glucose 247 H Calcium 8.6 12/09/22 05:10 Sodium 131 L Potassium 3.8 Chloride 99 Carbon Dioxide 23 BUN 9 Creatinine 1.1 Glucose 194 H Calcium 9.3 Liver Function 12/08/22 12/09/22 Range/Units 05:00 05:10 Total Bilirubin 0.4 0.5 (0.15-1.2) mg/dL AST 18 15 (0-40) U/L ALT 12 10 (0-41) U/L Alkaline Phosphatase 61 64 (40-130) U/L Albumin 2.9 L 3.0 L (3.5-5.2) g/dL Coags 12/08/22 12/08/22 12/08/22 05:00 05:00 05:00 ESR 24 H PT 39.30 H INR 3.84 H C-Reactive Protein 127.3 H 12/09/22 05:10 ESR PT 34.50 H INR 3.26 H C-Reactive Protein Microbiology 12/09/22 05:19 Blood Culture - Preliminary Blood SPECIMEN COLLECTED 12/09/22 05:10 Blood Culture - Preliminary Blood SPECIMEN COLLECTED 12/06/22 16:45 Urine Culture - Final Urine,Clean Catch Cardiac Studies: Echocardiogram 12/07/22 Echocardiogram Ultrasound 06/21/20 Sestamibi Stress Test (Cardiology) 06/21
--- NOTE | 2022-12-09 10:28 | PC.NURSE ---
TO ICU for IRASEMA Pt brought to ICU 12 for IRASEMA procedure. Pt alert and oriented and denied pain. VSS with bp at 104/72. Time out done. updated and in waiting room.
--- NOTE | 2022-12-09 10:37 | ANE.PACU2 ---
Inpatient post-anesthesia follow up: Airway intact: Yes Vital signs: Temperature 98.6 F Pulse Rate 78 Respiratory Rate 18 Blood Pressure 128/76 Pulse Oximetry 97 Oxygen Delivery Me thod Room Air Oxygen Flow Rate Fraction of Inspir ed Oxygen Hydration adequate: Yes Nausea and vomiting: No Pain level: 1 Mental status: Baseline
--- NOTE | 2022-12-09 10:38 | PC.SOCIAL ---
IMM Update pg 2 of IMM updated and reviewed w/ patient and his . Copy provided and Copy dated, initialed and placed in chart.
--- NOTE | 2022-12-09 10:44 | PC.NURSE ---
1031: IRASEMA completed. Pt's vital signs stable with bp at 105/88 O2 98% on 2L which is being weaned. Pt is starting to wake up and his is at bedside.
[2022-12-09 11:52] LABS: Glucose Point of Care 262 mg/dL (70-110)
[2022-12-09] MEDS: insulin lispro 100 unit/1 mL SUBCUT ×3 (11:53→20:58)
[2022-12-09 11:58] LABS: Iron 30 ug/dL (59-158); Percent Saturation 12.8 % (20-50); Total Iron Binding Capacity 233 mcg/dl; Unsaturated Iron Binding 203 ug/dL (112-347)
[2022-12-09 12:06] LABS: Thyroid Stimulating Hormone 0.98 uIU/mL (0.27-4.20)
[2022-12-09 12:14] LABS: Vitamin B12 550 pg/mL (232-1245)
--- NOTE | 2022-12-09 15:46 | P.PN_ITS ---
Subjective Subjective: Hospital course, labs appreciated. On examination patient lying comfortably in bed with family at bedside. Patient is post IRASEMA. Awake and alert. Denies any nausea, vomiting, headache. Doing well on room air. Hemodynamically stable. Afebrile since admission. Tmax since admission 99.3 Fahrenheit. Vitals/I&O/Wt Last Vital Signs Temp 98.0 F 12/09/22 12:00 Pulse 77 12/09/22 12:00 Resp 17 12/09/22 13:33 BP 131/80 12/09/22 12:00 Pulse Ox 97 12/09/22 12:00 O2 Del Method Room Air 12/09/22 12:00 12/09/22 12/09/22 12/09/22 06:59 14:59 22:59 Intake Total 50 / 2560 480 / 480 Balance 50 / 2560 480 / 480 Data 12/09/22 05:10 12/09/22 05:10 Micro: Microbiology 12/09/22 05:19 Blood Culture - Preliminary Blood SPECIMEN COLLECTED 12/09/22 05:10 Blood Culture - Preliminary Blood SPECIMEN COLLECTED A&P Assessment and plan (1) Bacteremia due to Streptococcus: (2) Osteomyelitis: (3) Aortic valve replaced: (4) Hyperlipidemia: (5) DM type 2 (diabetes mellitus, type 2): Check A1c. Insulin at high-dose protocol sliding scale before meals and at bedtime. Lantus 20 units at bedtime. 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 Assessment: Streptococcus bacteremia: In setting of aortic valve replacement, mechanical aortic valve, aortic root replacement, history of infective endocarditis. CT foot concerning for osteomyelitis. CRP elevated. Blood cultures from admission positive for Streptococcus agalactiae. Sensitivities awaited. Repeat blood cultures sent on 12/09. IRASEMA negative for infective endocarditis. Cannot do MRI for the given history of pacemaker implantation and mechanical aortic valve. We will consult ID and podiatry. Patient wants to continue to follow-up at [facility] with ID and podiatry going forward. Stop vancomycin. Check MRSA swab. If MRSA swab is positive will add vancomycin. Continue with Zosyn for now. Most likely can switch over to IV ceftriaxone. Patient will most likely need 6 weeks of IV antibiotics. If blood cultures negative will plan for PICC line placement. Great toe osteomyelitis: Appreciate CT foot. Will consult podiatry. Aortic valve replacement: On chronic anticoagulation with warfarin. Target INR 2-3. Pharmacy consulted for warfarin dose. Full code. Cardiac carb consistent diet. Warfarin will suffice as DVT prophylaxis Protonix for PUD prophylaxis. Appreciate documentation from [facility] regarding previous hospitalization and management. Paperwork showing concerns for IgE-mediated vasculitis in the past not on any treatment currently. Concerns for Staphylococcus epidermidis bacteremia in 2019. Requested further documentation with ID notes and culture information from 2014. Attestations Medical Necessity Statement*: Requires further hospitalization for management of Streptococcus bacteremia, right great toe osteomyelitis in setting of aortic valve replacement, aortic root replacement in a patient with baseline IgM mediated vasculitis. Diagnoses Bacteremia due to Streptococcus R78.81; B95.5 Osteomyelitis M86.9 Aortic valve replaced Z95.2 Hyperlipidemia E78.5 DM type 2 (diabetes mellitus, type 2) E11.9 Peripheral neuropathy G62.9 Chronic anticoagulation Z79.01 Fever R50.9 Aortic aneurysm, thoracic I71.20 IgA mediated leukocytoclastic vasculitis D69.0 Aortic stenosis I35.0
[2022-12-09 16:53] LABS: Glucose Point of Care 310 mg/dL (70-110)
[2022-12-09 20:54] LABS: Glucose Point of Care 269 mg/dL (70-110)
[2022-12-09] MEDS: insulin glargine 100 units/1 mL 20 UNIT SUBCUT (21:03)
[2022-12-10] VITALS (13 sets, daily range): BP systolic 108–148; BP diastolic 57–84; PULSE 65–86; RESP 16–19; TEMP 36.4–37.3; O2SAT 90–99
[2022-12-10] MEDS: oxyCODONE-APAP 5-325 mg Tablet 1.5 TAB PO ×5 (02:14→20:48)
[2022-12-10] MEDS: piperacillin-tazobactam 3.375 GM in sodium chloride 0.9% (plus) 50 ML IV ×2 (04:42→11:41)
[2022-12-10 06:22] LABS: Basophils % 0.5 %; Eosinophils # 0.2 10^3/uL (0.0-0.8); Eosinophils % 2.9 %; Hematocrit 33.8 % (42.0-52.0); Hemoglobin 10.9 g/dL (11.7-16.6); Lymphocytes # 2.4 10^3/uL (0.8-4.8); Lymphocytes % 30.5 %; Mean Corpuscular HGB Conc 32.2 g/dL (30.0-36.0); Mean Corpuscular Hemoglobin 26.7 pg (28.0-34.0); Mean Corpuscular Volume 82.8 fl (80-94); Monocytes # 0.6 10^3/uL (0.2-0.9); Monocytes % 7.1 %; Neutrophils # 4.62 10^3/uL (1.8-7.7); Neutrophils % 58.6 %; Nucleated Red Blood Cells % 0 %; Platelet Count 263 10^3/cmm (130-400); Red Blood Count 4.08 10^6/uL (4.1-5.3); Red Cell Distribution Width 13.1 % (12.1-15.1); White Blood Count 7.9 10^3/uL (4.0-10.0)
[2022-12-10 06:35] LABS: Alanine Aminotransferase 9 U/L (0-41); Albumin Level 3.1 g/dL (3.5-5.2); Alkaline Phosphatase 66 U/L (40-130); Anion Gap 12.6 (5-19); Aspartate Amino Transferase 12 U/L (0-40); Blood Urea Nitrogen 10 mg/dL (6-20); Calcium 8.8 mg/dL (8.5-10.5); Carbon Dioxide 26 mmol/L (22-29); Chloride 97 mmol/L (98-107); Chol HDL Ratio 7.86 mg/dL (1.0-5.00); Cholesterol 165 mg/dL (0-200); Globulin 4.2 g/dL (1.3-4.6); Glomerular Filtration Rate 63.6 mL/min (90-130); Glucose 277 mg/dL (65-115); HDL Cholesterol 21 mg/dL (60-100); LDL Cholesterol Calculated 103 mg/dL (50-129); Osmolality Calculated 283 mOsm/kg (285-295); Potassium 3.6 mmol/L (3.5-5.1); Sodium 132 mmol/L (136-145); Total Bilirubin 0.4 mg/dL (0.15-1.2); Total Protein 7.3 g/dL (6.6-8.7); Triglycerides 204 mg/dL (0-150); VLDL Cholestrol Calculation 41 mg/dL (0-30)
[2022-12-10] MEDS: pantoprazole DR 40 mg Tablet PO (06:39)
[2022-12-10 06:49] LABS: Glucose Point of Care 250 mg/dL (70-110)
[2022-12-10 06:53] LABS: Folate Level 6.3 ng/mL (4.5-32.2)
[2022-12-10 06:59] LABS: Estmated Average Glucose 229; Hemoglobin A1C 9.6 % (4.0-6.0)
[2022-12-10] MEDS: insulin lispro 100 unit/1 mL SUBCUT ×4 (08:38→20:49)
[2022-12-10] MEDS: duloxetine 60 mg Capsule PO (08:38)
--- NOTE | 2022-12-10 10:46 | XR_ITS ---
WS: [id number] Exam: XR foot LT 2V [id number] Date/Time of Exam: 12/10/2022 10:48 AM Reason For Exam: Possible toe osteo No fracture or dislocation noted. No sign of bone destruction. No soft tissue foreign bodies noted. S mall heel spurs. Vascular calcifications noted in the forefoot. XR/XR foot LT 2V [id number] IMPRESSION: 1. No acute fracture or bone destruction.
[2022-12-10 11:34] LABS: INR 2.07 (0.8-1.2)
[2022-12-10] MEDS: insulin glargine 100 units/1 mL 20 UNIT SUBCUT ×2 (11:44→17:34)
[2022-12-10 12:12] LABS: Glucose Point of Care 192 mg/dL (70-110)
--- NOTE | 2022-12-10 12:27 | P.PN_ITS ---
Subjective Subjective: The patient is stable. IRASEMA did not reveal vegetations. Vitals/I&O/Wt Last Vital Signs Temp 98.5 F 12/10/22 08:00 Pulse 78 12/10/22 08:00 Resp 16 12/10/22 08:00 BP 124/76 12/10/22 08:00 Pulse Ox 94 12/10/22 08:00 O2 Del Method Room Air 12/10/22 07:10 12/09/22 12/10/22 12/10/22 22:59 06:59 14:59 Intake Total 950 / 1430 50 / 1480 1210 / 1210 Balance 950 / 1430 50 / 1480 1210 / 1210 Physical Exam HENMT: COMMON NORMALS: normocephalic and atraumatic HEAD & SCALP: normocephalic and atraumatic Resp: COMMON NORMALS: clear to auscultation bilaterally AUSCULTATION: clear to auscultation bilaterally Cardio: COMMON NORMALS: regular rate, regular rhythm, S1 normal heart sound present, S2 normal heart sound present, No gallops present (Cardio), No rub (Cardio) and Peripheral pulses 2+ throughout RATE: regular rate RHYTHM: regular rhythm HEART SOUNDS: S1 normal heart sound present and S2 normal hear t sound present PERIPHERAL PULSES: Peripheral pulses 2+ throughout OTHER: Ejection systolic click predominantly present in aortic area with 2/6 systolic murmur GI: COMMON NORMALS: Normal to inspection, nondistended, normoactive bowel sounds present, Soft to palpation, non-tender, No hepatosplenomegaly present and no masses AUSCULTATION: Yes normoactive bowel sounds PALPATION: Yes Soft to palpation and Yes No hepatosplenomegaly present Extremity: COMMON NORMALS: no clubbing, cyanosis or edema and no pedal edema Data 12/12/22 04:34 12/12/22 04:34 Micro: Microbiology 12/08/22 19:00 Gram Stain - Final Sputum - Expectorated Sputum Sputum Culture - Preliminary Yeast species 12/09/22 05:19 Blood Culture - Preliminary Blood NEGATIVE TO DATE 12/09/22 05:10 Blood Culture - Preliminary Blood NEGATIVE TO DATE 12/06/22 18:40 Blood Culture - Final Blood Strep agalactiae - (group b) 12/06/22 18:45 Blood Culture - Final Blood Strep agalactiae - (group b) A&P Assessment and plan (1) Fever of unknown origin: (2) Aortic stenosis: (3) Aortic aneurysm, thoracic: (4) DM type 2 (diabetes mellitus, type 2): Plan IRASEMA performed by my cardiology colleague over the weekend does not reveal vegetations. Continue antibiotics per primary team. If repeat cultures stay positive can consider repeat transesophageal echocardiogram. ID consultation recommended. Thank you for involving us with care of this patient. We will sign off. Please call with questions. Attestations Medical Necessity Statement*: Care expected to cross 2 midnights Coding Level of Care Code Acute Code for g Fwd Diagnoses Fever of unknown origin R50.9 Aortic stenosis I35.0 Aortic aneurysm, thoracic I71.20 DM type 2 (diabetes mellitus, type 2) E11.9
--- NOTE | 2022-12-10 13:24 | P.PN_ITS ---
Subjective Subjective: No acute events overnight. Patient has remained hemodynamically stable and afebrile. Denies any nausea, vomiting, headache. Complaining of. In the left foot going to toe today. Patient was found to have a tick at left calf today which was removed by nursing. No rash currently Vitals/I&O/Wt Last Vital Signs Temp 97.5 F L 12/10/22 12:00 Pulse 78 12/10/22 12:00 Resp 19 H 12/10/22 12:00 BP 108/57 12/10/22 12:00 Pulse Ox 90 12/10/22 12:00 O2 Del Method Room Air 12/10/22 07:10 12/09/22 12/10/22 12/10/22 22:59 06:59 14:59 Intake Total 950 / 1430 50 / 1480 1330 / 1330 Balance 950 / 1430 50 / 1480 1330 / 1330 Physical Exam Narrative: General: No acute distress, AO x3 HEENT: PERRLA, pupils bilaterally equal and reactive Chest: Normal vesicular breath sounds, no added sounds, equal good air entry bilaterally CVS: S1-S2 regular, no murmurs, no tachycardia, no gallops, no rubs Abdomen: Soft, nontender, no organomegaly, bowel sounds present Neuro: No focal deficits, no facial deformity, AO x3, power 5/5 in all limbs Data 12/10/22 05:46 12/10/22 05:46 Micro: Microbiology 12/08/22 19:00 Gram Stain - Final Sputum - Expectorated Sputum Sputum Culture - Preliminary Yeast species 12/09/22 05:19 Blood Culture - Preliminary Blood NEGATIVE TO DATE 12/09/22 05:10 Blood Culture - Preliminary Blood NEGATIVE TO DATE 12/06/22 18:40 Blood Culture - Final Blood Strep agalactiae - (group b) 12/06/22 18:45 Blood Culture - Final Blood Strep agalactiae - (group b) A&P Assessment and plan (1) Bacteremia due to Streptococcus: (2) Osteomyelitis: (3) Aortic valve replaced: (4) Hyperlipidemia: (5) DM type 2 (diabetes mellitus, type 2): Check A1c. Insulin at high-dose protocol sliding scale before meals and at bedtime. Lantus 20 units at bedtime. 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 Assessment: Streptococcus bacteremia: In setting of aortic valve replacement, mechanical aortic valve, aortic root replacement, history of infective endocarditis. CT foot concerning for osteomyelitis. CRP elevated. Blood cultures from admission positive for Streptococcus agalactiae. Sensitivities awaited. Repeat blood cultures sent on 12/09. IRASEMA negative for infective endocarditis. Cannot do MRI for the given history of pacemaker implantation and mechanical aortic valve. We will consult ID and podiatry. Patient wants to continue to follow-up at [facility] with ID and podiatry going forward. Stop vancomycin. Check MRSA swab. If MRSA swab is positive will add vancomycin. Continue with Zosyn for now. Most likely can switch over to IV ceftriaxone. Patient will most likely need 6 weeks of IV antibiotics. If blood cultures negative will plan for PICC line placement. Great toe osteomyelitis: Appreciate CT foot. Will consult podiatry. Aortic valve replacement: On chronic anticoagulation with warfarin. Target INR 2-3. Pharmacy consulted for warfarin dose. Full code. Cardiac carb consistent diet. Warfarin will suffice as DVT prophylaxis Protonix for PUD prophylaxis. Plan for the day: Podiatry consultation. Appreciate ID recommendations. Switch antibiotics to IV ceftriaxone. Follow-up blood cultures. If remain negative from 12/09 within next 24 hours we will plan for PICC line placement for long-term IV antibiotics for next 6 weeks. Warfarin to be dosed as per pharmacy with target between 2-3. Fluid restriction up to 1500 cc. Hold off on diuretics. Blood sugars continue to remain on the higher side. Increase Lantus to 20 units twice daily. Patient received overall 20 units of Lantus yesterday along with 38 units of Humalog. Continue to hold off on antihypertensives for now. Foot left x-ray. Appreciate documentation from [facility] regarding previous hospitalization and management. Paperwork showing concerns for IgE-mediated vasculitis in the past not on any treatment currently. Concerns for Staphylococcus epidermidis bacteremia in 2019. Requested further documentation with ID notes and culture information from 2015. Attestations Medical Necessity Statement*: Requires further hospitalization for management of Streptococcus bacteremia in setting of possible right great toe osteomyelitis, history of mechanical aortic valve, pacemaker implantation and aortic root replacement while outpatient antibiotics are set up Diagnoses Bacteremia due to Streptococcus R78.81; B95.5 Osteomyelitis M86.9 Aortic valve replaced Z95.2 Hyperlipidemia E78.5 DM type 2 (diabetes mellitus, type 2) E11.9 Peripheral neuropathy G62.9 Chronic anticoagulation Z79.01 Fever R50.9 Aortic aneurysm, thoracic I71.20 IgA mediated leukocytoclastic vasculitis D69.0 Aortic stenosis I35.0
[2022-12-10] MEDS: warfarin 5 mg Tablet PO (14:13)
[2022-12-10] MEDS: cefTRIAXone 2,000 MG in sodium chloride 0.9% (plus) 50 ML 100 MG IV (14:18)
[2022-12-10 16:49] LABS: Glucose Point of Care 208 mg/dL (70-110)
[2022-12-10 20:47] LABS: Glucose Point of Care 196 mg/dL (70-110)
[2022-12-10] MEDS: magnesium hydroxide 30 mL UDC PO (20:48)
--- NOTE | 2022-12-10 21:42 | PM.CONSULT ---
Providers/Reason For Consult Consulting Physician/Specialty*: Dr. Shahab Mcmahan, Sofia.P.M./PODIATRY Reason for Consult*: Bilateral foot wounds Attending Physician: Riaz Hanna MD Primary Care Provider: Rogers Canseco DO History of Present Illness History of Present Illness Corby Spaulding is a 52 year old male that presented to the hospital on 12/06/2022 with chief complaint of fever that started 3 days prior. Patient has extensive cardiac history with history of 3 open heart surgeries for aortic valve replacement. Patient has history of endocarditis. Upon presentation patient stated that he felt that he was developing another infection from endocarditis. Patient does have a history of bilateral foot wounds for which she sees a early childhood worker in [place], Dr. Hodgson. Patient states that overall the wound has improved much over the course of the past few weeks. He was concerned at one point for the wound and so he sent a picture of it to his early childhood worker Dr. Hodgson who advised him to go to the emergency department. Upon presentation and work-up in the hospital patient was found to be bacteremic with Streptococcus. Since admission he has remained hemodynamically stable and his Tmax has been 99.3 since admission. Podiatry was consulted to assess bilateral foot wounds to rule out source for bacteremia. Review of Systems General: Reports: 10 or more systems reviewed and unremarkable except in HPI and below Const: Denies: fever(s), chills, body aches or change in appetite Eyes: Denies: change in vision or blurry vision Card: Denies: chest pain, palpitations or irregular heart rhythm Resp: Denies: dyspnea GI: Denies: abdominal pain, nausea, vomiting or diarrhea Musc: Reports: joint stiffness Skin/Breast: Reports: non-healing lesions and lesions Neuro: Reports: numbness in extremities Medications/Allergies Home Medications Medication Instructions Recorded Confirmed Last Taken Type metoprolol succinate 50 mg 50 mg PO DAILY@01/03/20 12/06/22 12/04/22 History tablet,extended release 24 hr alprazolam 0.5 mg tablet (Xanax) 0.5 mg PO BID PRN Anxiety 06/20/20 12/06/22 06/20/20 History blood-glucose meter,continuous #1 ea 09/13/20 12/07/22 Unknown Rx ([employer]ex[employer] G6 [employer]) blood-glucose sensor (Dexcom G6 #3 ea 05/17/21 12/07/22 Unknown Rx Sensor device) blood-glucose transmitter (Dexcom #1 ea 05/17/21 12/07/22 Unknown Rx G6 Transmitter device) pantoprazole 40 mg tablet,delayed 40 mg PO DAILY@06 #90 tabs 06/04/21 12/06/22 12/04/22 Rx release duloxetine 60 mg capsule,delayed 60 mg PO DAILY #30 caps 01/07/22 12/06/22 12/04/22 Rx release tadalafil 20 mg tablet 20 mg PO DAILY PRN sexual activity 03/04/22 12/06/22 Unknown Rx #20 tabs furosemide 40 mg tablet 20 mg PO DAILY PRN Edema 12/06/22 12/06/22 Unknown History insulin glargine 100 30 unit SUBCUT QAM 12/06/22 12/06/22 12/04/22 History unit-lixisenatide 33 mcg/mL subcutaneous pen (Soliqua 100/33) oxycodone-acetaminophen 7.5 mg-325 1 tab PO Q4H PRN Pain 12/06/22 12/06/22 Unknown History mg tablet warfarin 4 mg tablet 6 mg PO DAILY 12/06/22 12/06/22 12/05/22 History Allergies Allergy/AdvReac Type Severity Reaction Status Date / Time doxycycline Allergy ADR-Gastrointestinal Verified 03/04/22 14:43 Upset prochlorperazine Allergy Unknown Verified 03/04/22 14:43 [From Compazine] Current Medications Generic Name Dose Route Start Last Admin Trade Name Freq PRN Reason Stop Dose Admin Acetaminophen 650 mg 12/06/22 23:52 12/07/22 01:38 Acetaminophen 325 Mg Tablet PO 650 mg Q6H PRN Administration Mild/Mod Pain Or Temp >/= 101 Duloxetine HCl 60 mg 12/08/22 09:00 12/10/22 08:38 Duloxetine 60 Mg Capsule PO 60 mg DAILY MALACHI Administration Ceftriaxone Sodium 2,000 mg/ 50 mls @ 100 mls/hr 12/10/22 14:00 12/10/22 17:16 Sodium Chloride IV Infused Q24H MALACHI Infusion Protocol Insulin Glargine 20 unit 12/10/22 11:00 12/10/22 17:34 Insulin Glargine 100 Units/1 Ml SUBCUT 20 unit BID MALACHI Administration Insulin Human Lispro 0 unit 12/07/22 18:00 12/10/22 20:49 Insulin Lispro 100 Unit/1 Ml SUBCUT 8 unit WM&BEDTIME MALACHI Administration Protocol Magnesium Hydroxide 30 ml 12/10/22 20:26 12/10/22 20:48 Magnesium Hydroxide 30 Ml Udc PO 30 ml DAILY PRN Administration CONSTIPATION Oxycodone/Acetaminophen 1.5 tab 12/07/22 12:32 12/10/22 20:48 Oxycodone-Apap 5-325 Mg Tablet PO 1.5 tab Q4H PRN Administration MODERATE TO SEVERE PAIN Pantoprazole Sodium 40 mg 12/08/22 06:00 12/10/22 06:[address] 40 Mg Tablet PO 40 mg DAILY@06 MALACIH Administration Warfarin Sodium 5 mg 12/10/22 14:00 12/10/22 14:13 Warfarin 5 Mg Tablet PO 5 mg DAILY@1400 MALACHI Administration PFSH Acute PFSH: Medical History (Updated 12/10/22 @ 21:49 by Shahab Mcmahan DPM) Aortic aneurysm, thoracic sp Repair Aortic stenosis sp Prosthetic AVR Asymptomatic microscopic hematuria DM type 2 (diabetes mellitus, type 2) Erectile dysfunction Hematuria Hyperlipidemia Hypertension IgA mediated leukocytoclastic vasculitis Leukocytoclastic vasculitis Sick sinus syndrome sp pacemaker placement Staphylococcus epidermidis bacteremia Steroid-induced hyperglycemia Surgical History Aortic valve replaced History of open heart surgery History of 3 open heart surgeries for aortic valve History of permanent cardiac pacemaker placement S/P ascending aortic aneurysm repair Family History Denies family history of CAD (coronary artery disease) Social History Smoking and tobacco status: never smoked Second hand smoke exposure: No Alcohol intake: former Substance/Drug Use: unknown Adopted: No Caregiver/support person: No Lives independently: No Household members: spouse Marital status: Current occupational status: disabled Vitals/I&O/Wt Last Vital Signs Temp 98.1 F 12/10/22 19:29 Pulse 74 12/10/22 19:29 Resp 16 12/10/22 20:48 BP 143/78 12/10/22 19:29 Pulse Ox 94 05/30/23 19:29 O2 Del Method Room Air 05/30/23 16:00 12/10/22 12/10/22 12/10/22 06:59 14:59 22:59 Intake Total 50 / 1480 1363.333 / 1363.333 530 / 1893.333 Balance 50 / 1480 1363.333 / 1363.333 530 / 1893.333 Physical Exam Narrative: BELOW IS A FOCUSED LOWER EXTREMITY EXAM GENERAL: A&O x 3 VASCULAR: DP/PT pulses palpable 2/4 with CFT intact, <3seconds to distal digits DERMATOLOGICAL: Skin turgor and temperature is within normal limits. No open wounds or skin lesions noted. Nails are well manicured and normotrophic. No interdigital maceration noted. MUSCULOSKELETAL: Full-thickness ulceration to plantar aspect of right hallux Wound #1 Location: Plantar aspect of right hallux Size: 0.2 cm circumferentially with 0.2 cm depth Undermining: Undermining circumferentially 0.3 cm Tracking: Negative Probe to bone: Negative Borders: Hyperkeratotic Base: 100% granular Drainage: Negative Malodor: Negative Wound #2 Location: Distal left hallux Size: Superficial abrasion measuring 1.0 x 0.5 cm Undermining: Negative Tracking: Negative Probe to bone: Negative Borders: Negative Base: Dermis Drainage: Negative Malodor: Negative NEUROLOGICAL: Neurological sensation to the affected foot and ankle is present through L4-S1 dermatomes with no hyper/hypoesthesias, negative Tinel or Valleix's sign Data 12/10/22 05:46 12/10/22 05:46 Micro: Microbiology 12/08/22 19:00 Gram Stain - Final Sputum - Expectorated Sputum Sputum Culture - Preliminary Yeast species 12/09/22 05:19 Blood Culture - Preliminary Blood NEGATIVE TO DATE 12/09/22 05:10 Blood Culture - Preliminary Blood NEGATIVE TO DATE A&P Assessment and plan (1) Ulcer of left foot with fat layer exposed: (2) DM type 2 (diabetes mellitus, type 2): (3) Bacteremia: (4) Fever: Plan LABS AND CLINICAL INFO: WBC 7.9 VSS Blood culture: Group B strep Imaging: CT shallow ulcer of right hallux with focal periosteal reaction that was read as questionable osteomyelitis. No readily distracted cortices visualized on CT scan or x-rays. No subcutaneous emphysema noted. PLAN: -Okay for diet from podiatry standpoint -No surgical intervention during this admission -I do not believe that foot wounds are source of bacteremia based on clinical presentation, laboratory review and imaging review -Patient will be receiving 6 weeks of IV antibiotics for infection/bacteremia -Patient is okay to discharge home from podiatry standpoint with daily wound care regimen that has been outlined by his early childhood worker -Patient is to follow-up with his established early childhood worker Dr. Hodgson within 1 week of discharge -Podiatry will sign off. Please reconsult if needed Coding Level of Care Code Acute Code for Chg Fwd Diagnoses Ulcer of left foot with fat layer exposed L97.522 DM type 2 (diabetes mellitus, type 2) E11.9 Bacteremia R78.81 Fever R50.9
[2022-12-11] VITALS (14 sets, daily range): BP systolic 124–177; BP diastolic 76–99; PULSE 65–87; RESP 16–19; TEMP 36.7–37.8; O2SAT 96–99
--- NOTE | 2022-12-11 00:47 | P.CONIM_ITS ---
Providers/Reason For Consult Consulting Physician/Specialty*: Silvina Mcdonough MD / infectious Disease Reason for Consult*: Endocarditis Requesting Physician: Riaz Hanna MD Attending Physician: Riaz Hanna MD Primary Care Provider: Rogers Canseco DO History of Present Illness History of Present Illness Corby Spaulding is a 52 year old male past medical history of hypertension, IgA vasculitis, diabetes mellitus, aortic stenosis status post aortic valve replacement, history of endocarditis, sick sinus syndrome status post pacemaker, thoracic aortic aneurysm status postrepair and replacement in 2002. Currently is admitted to the hospital since December 06, 2022 after presenting with symptoms of intermittent fever which started about a week prior to admission associated also with generalized body ache, arthralgias and intermittent nausea. He had a few episodes of diarrhea which are currently resolved. He has a history of chronic ulcer involving his foot diabetic for which he follows with able bodied watchman in [place]. Over the past 2 to 3 weeks he has had cellulitis affecting the great toe on the right side around this ulceration for which she has had 2 rounds of clindamycin as outpatient. Eventually an abscess formed and ruptured spontaneously, per patient a lot of pus oozed out and since then the toe started to heal. His cellulitis is currently resolved. There does remain a small remnant ulcer over the plantar aspect of his great toe, currently clean and dry healing well. He was admitted to the hospital for work-up of fever with Tmax of 102.7. His blood cultures returned positive for group B streptococcus from 12/06/2022. CT of his chest abdomen and pelvis performed on admission did not show any acute findings. CT of his foot was performed on December 08, 2022 which showed soft tissue ulcer and edema in the great toe with adjacent periosteal reaction with suspicion for osteomyelitis. However there were no bony erosions. No history of recent dental work. As such he has poor dentition and wears dentures. He does not recall any recent dental abscess or bleeding from his gums. A IRASEMA was performed on December 09, 2022 which showed normal left ventricular size, EF of 55%, no vegetations, prosthetic valve with normal velocities without any regurgitation. Pacemaker wires were visualized in the right ventricle. He has been on treatment with piperacillin/tazobactam and vancomycin during the course of admission. His fever curve is currently improved. Relevant infectious past medical history: December 2018: Admission at [facility] Inpatient admission for chest pain and dyspnea along with a diffuse petechial rash. Underwent skin biopsy and found to have IgA vasculitis for which she was started on high-dose steroids. Patient has since discontinued his steroids as is made his blood sugars out of range. He has not followed back up with dermatology or rheumatology. Incidentally also found to have 1 out of 4 bottles positive for Staph epidermidis. Repeat cultures and IRASEMA were negative for any vegetations therefore antibiotics were discontinued after the initial few days. 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 Hospitalized between 02/27 to 03/06/2014 for sudden onset of fever and shaking chills. Also noted to have hearing loss in the left ear at that time. Blood cultures revealed MSSA. IRASEMA showed possible aortic valve vegetation. He was treated with oxacillin and rifampin for 6 weeks and gentamicin for the initial 2 weeks. He has not recently followed with infectious disease. Wishes to transition all of his care locally in [place]. Review of Systems General: Reports: 10 or more systems reviewed and unremarkable except in HPI and below Const: Denies: fever(s), chills or body aches Eyes: Denies: change in vision, blurry vision or photophobia ENMT: Reports: hoarseness; Denies: throat pain, enlarged tonsils, odynophagia or nasal congestion Card: Denies: chest pain, palpitations, irregular heart rhythm, edema, swelling of feet/ankles, lightheadedness, pre-syncope, dyspnea on exertion or orthopnea Resp: Denies: dyspnea, productive cough, non-productive cough, wheezing, stridor, pain on inspiration, change in phlegm color, hemoptysis or chest brandee estion GI: Denies: abdominal pain, nausea, vomiting, hematemesis, coffee ground emesis, dysphagia, heartburn, diarrhea, constipation, GI cramping, change in stool character, hematochezia or melena : Denies: flank pain, dysuria, urinary frequency, urinary urgency, urinary hesitancy or hematuria Musc: Denies: neck pain, back pain, extremity pain, joint swelling, joint warmth or deformity Neuro: Denies: headache(s), numbness in extremities, weakness in extremities, sensory changes, difficulty walking, frequent falls, dizziness, vertigo, behavioral changes, Slurred speech present or seizure-like activity Psych: Denies: anxiety, depression, suicidal ideation or homicidal ideation Endo: Denies: polyuria, polydipsia, tired all the time, cold intolerance or hot flashes Ej/Lymph: Denies: easy bruising or easy bleeding Medications/Allergies Home Medications Medication Instructions Recorded Confirmed Last Taken Type metoprolol succinate 50 mg 50 mg PO DAILY@06 01/03/20 12/06/22 12/04/22 History tablet,extended release 24 hr alprazolam 0.5 mg tablet (Xanax) 0.5 mg PO BID PRN Anxiety 06/20/20 12/06/22 06/20/20 History blood-glucose meter,continuous #1 ea 09/13/20 12/07/22 Unknown Rx (Dexcom G6 Cloth Cutting Inspector) blood-glucose sensor (Dexcom G6 #3 ea 05/17/21 12/07/22 Unknown Rx Sensor device) blood-glucose transmitter (Dexcom #1 ea 05/17/21 12/07/22 Unknown Rx G6 Transmitter device) pantoprazole 40 mg tablet,delayed 40 mg PO DAILY@06 #90 tabs 06/04/21 12/06/22 12/04/22 Rx release duloxetine 60 mg capsule,delayed 60 mg PO DAILY #30 caps 01/07/22 12/06/22 12/04/22 Rx release tadalafil 20 mg tablet 20 mg PO DAILY PRN sexual activity 03/04/22 12/06/22 Unknown Rx #20 tabs furosemide 40 mg tablet 20 mg PO DAILY PRN Edema 12/06/22 12/06/22 Unknown History oxycodone-acetaminophen 7.5 mg-325 1 tab PO Q4H PRN Pain 12/06/22 12/06/22 Unknown History mg tablet warfarin 4 mg tablet 6 mg PO DAILY 12/06/22 12/06/22 12/05/22 History insulin glargine 100 25 unit (0.25 mL) SUBCUT BID #15 mL 12/12/22 12/06/22 12/04/22 Rx unit-lixisenatide 33 mcg/mL subcutaneous pen (Soliqua 100/33) Allergies Allergy/AdvReac Type Severity Reaction Status Date / Time doxycycline Allergy ADR-Gastrointestinal Verified 03/04/22 14:43 Upset prochlorperazine Allergy Unknown Verified 03/04/22 14:43 [From Compazine] Current Medications Generic Name Dose Route Start Last Admin Trade Name Freq PRN Reason Stop Dose Admin Acetaminophen 650 mg 12/06/22 23:52 12/07/22 01:38 Acetaminophen 325 Mg Tablet PO 650 mg Q6H PRN Administration Mild/Mod Pain Or Temp >/= 101 Duloxetine HCl 60 mg 12/08/22 09:00 12/10/22 08:38 Duloxetine 60 Mg Capsule PO 60 mg DAILY MALACHI Administration Ceftriaxone Sodium 2,000 mg/ 50 mls @ 100 mls/hr 12/10/22 14:00 12/10/22 17:16 Sodium Chloride IV Infused Q24H MALACHI Infusion Protocol Insulin Glargine 20 unit 12/10/22 11:00 12/10/22 17:34 Insulin Glargine 100 Units/1 Ml SUBCUT 20 unit BID MALACHI Administration Insulin Human Lispro 0 unit 12/07/22 18:00 12/10/22 20:49 Insulin Lispro 100 Unit/1 Ml SUBCUT 8 unit WM&BEDTIME MALACHI Administration Protocol Magnesium Hydroxide 30 ml 12/10/22 20:26 12/10/22 20:48 Magnesium Hydroxide 30 Ml Udc PO 30 ml DAILY PRN Administration CONSTIPATION Oxycodone/Acetaminophen 1.5 tab 12/07/22 12:32 12/10/22 20:48 Oxycodone-Apap 5-325 Mg Tablet PO 1.5 tab Q4H PRN Administration MODERATE TO SEVERE PAIN Pantoprazole Sodium 40 mg 12/08/22 06:00 12/10/22 06:[address] 40 Mg Tablet PO 40 mg DAILY@06 MALACHI Administration Warfarin Sodium 5 mg 12/10/22 14:00 12/10/22 14:13 Warfarin 5 Mg Tablet PO 5 mg DAILY@1400 MALACHI Administration PFSH Acute PFSH: Medical History Aortic aneurysm, thoracic sp Repair Aortic stenosis sp Prosthetic AVR Asymptomatic microscopic hematuria DM type 2 (diabetes mellitus, type 2) Erectile dysfunction Hematuria Hyperlipidemia Hypertension IgA mediated leukocytoclastic vasculitis Leukocytoclastic vasculitis Peripheral neuropathy Sick sinus syndrome sp pacemaker placement Staphylococcus epidermidis bacteremia Steroid-induced hyperglycemia Surgical History Aortic valve replaced History of open heart surgery History of 3 open heart surgeries for aortic valve History of permanent cardiac pacemaker placement S/P ascending aortic aneurysm repair Family History Denies family history of CAD (coronary artery disease) Social History Smoking and tobacco status: never smoked Second hand smoke exposure: No Alcohol intake: former Substance/Drug Use: unknown Adopted: No Caregiver/support person: No Lives independently: No Household members: spouse Marital status: Current occupational status: disabled Vitals/I&O/Wt Last Vital Signs Temp 98.1 F 12/10/22 19:29 Pulse 83 12/10/22 22:00 Resp 16 12/10/22 20:48 BP 143/78 12/10/22 19:29 Pulse Ox 94 12/10/22 19:29 O2 Del Method Room Air 12/10/22 16:00 12/10/22 12/10/22 12/11/22 14:59 22:59 06:59 Intake Total 1363.333 / 1363.333 530 / 1893.333 Balance 1363.333 / 1363.333 530 / 1893.333 Physical Exam Narrative: General: No acute distress, AO x3 HEENT: PERRLA, pupils bilaterally equal and reactive, pallors not present Chest: Normal vesicular breath sounds, no added sounds, equal good air entry bilaterally CVS: S1-S2 regular, no murmurs, no tachycardia, no gallops, no rubs Abdomen: Soft, nontender, no organomegaly, bowel sounds present Neuro: No focal deficits, no facial deformity, AO x3, power 5/5 in all limbs Data 12/12/22 04:34 12/12/22 04:34 Micro: Microbiology 12/08/22 19:00 Gram Stain - Final Sputum - Expectorated Sputum Sputum Culture - Preliminary Yeast species 12/09/22 05:19 Blood Culture - Preliminary Blood NEGATIVE TO DATE 12/09/22 05:10 Blood Culture - Preliminary Blood NEGATIVE TO DATE [facility] [address] [place] [id number] HECTOR DUARTE, HYDRAULIC PLUMBER NAME: Corby Spaulding LOC: [facility] U #: [id number] AGE/SX: 52/M ROOM: 255 RE12/06/[address]: Riaz Hanna MD : 1970 BED: 2 DIS: 12/12/22 FAX #: STATUS: DIS IN TLOC: Spec #: [id number] Deanne: 12/06/22-184 Status: COMP Req #: [id number] Recd: 12/06/22-[address]: Albertina Bradford MD Src: Blood SpDesc: Ordered: Bcult Procedure Result Verified Site Blood Culture Final 12/09/22-1623 4 OF 4 BOTTLES POSITIVE DIRECT GRAM STAIN: GRAM POSITIVE COCCI CHAINS IDENTIFICATION BY DIRECT PCR Organism 1 Strep agalactiae - (group b) Growth 4 BOTTLES Gram Stain Charge Charge for Gram Stain CRITICAL RESULT YES/NO: YES CRITICAL CALLED BY: CATARINO TO AND READ BACK BY: LAUREN DATE: 12/07/22 TIME: 639 2ND CRITICAL RES YES/NO: YES 2ND CRITICAL CALLED BY: RT 2ND TO AND READ BACK BY: GABY DATE: 12/07/22 2ND CRITICAL TIME: 1044 S aga(gr b M.I.C. RX --------- ------ * Ampicillin 0.12 S * Azithromycin >2 R * Cefepime <=0.25 S * Ceftriaxone <=0.25 S * Clindamycin >0.5 R * Erythromycin >0.5 R * Levofloxacin 1 S * Penicillin 0.06 S * Tetracycline >4 R Vancomycin 1 S Blood Culture Preliminary (changed) 12/07/22-1712 4 OF 4 BOTTLES POSITIVE DIRECT GRAM STAIN: GRAM POSITIVE COCCI CHAINS IDENTIFICATION BY DIRECT PCR RESULTS TO FOLLOW Organism 1 Strep agalactiae - (group b) Growth 4 BOTTLES Gram Stain Charge Charge for Gram Stain CRITICAL RESULT YES/NO: YES CRITICAL CALLED BY: CATARINO TO AND READ BACK BY: LAUREN DATE: 12/07/22 TIME: 0640 2ND CRITICAL RES YES/NO: YES 2ND CRITICAL CALLED BY: RT 2ND TO AND READ BACK BY: GABY DATE: 12/07/22 2ND CRITICAL TIME: 1044 Blood Culture Preliminary (changed) 12/07/22-1453 3 OF 4 BOTTLES POSITIVE DIRECT GRAM STAIN: GRAM POSITIVE COCCI CHAINS IDENTIFICATION BY DIRECT PCR RESULTS TO FOLLOW Organism 1 Strep agalactiae - (group b) Growth 2 BOTTLES Gram Stain Charge Charge for Gram Stain CRITICAL RESULT YES/NO: YES CRITICAL CALLED BY: CATARINO TO AND READ BACK BY: LAUREN DATE: 12/07/22 TIME: 0640 2ND CRITICAL RES YES/NO: YES 2ND CRITICAL CALLED BY: RT 2ND TO AND READ BACK BY: GABY DATE: 12/07/22 2ND CRITICAL TIME: 1044 Blood Culture Preliminary (changed) 12/07/22-1044 2 OF 4 BOTTLES POSITIVE DIRECT GRAM STAIN: GRAM POSITIVE COCCI CHAINS IDENTIFICATION BY DIRECT PCR RESULTS TO FOLLOW Organism 1 Strep agalactiae - (group b) Growth 2 BOTTLES Gram Stain Charge Charge for Gram Stain CRITICAL RESULT YES/NO: YES CRITICAL CALLED BY: CATARINO TO AND READ BACK BY: LAUREN DATE: 12/07/22 TIME: 0640 2ND CRITICAL RES YES/NO: YES 2ND CRITICAL CALLED BY: RT 2ND TO AND READ BACK BY: GABY DATE: 12/07/22 2ND CRITICAL TIME: 1044 Blood Culture Preliminary (changed) 12/07/22-0642 2 OF 4 BOTTLES POSITIVE DIRECT GRAM STAIN: GRAM POSITIVE COCCI CHAINS RESULTS TO FOLLOW CRITICAL RESULT YES/NO: YES CRITICAL CALLED BY: CATARINO TO AND READ BACK BY: LAUREN DATE: 12/07/22 TIME: 0640 Blood Culture Preliminary (changed) 12/06/22-1909 SPECIMEN COLLECTED [facility] [address] [place] [id number] HECTOR DUARTE, HYDRAULIC PLUMBER NAME: ChellyCorby maurer [facility] #: [id number] LOC: [facility] U #: [id number] AGE/SX: 52/M ROOM: 255 RE12/06/[address]: Riaz Hanna MD : 1970 BED: 2 DIS: 12/12/22 FAX #: STATUS: DIS IN TLOC: Spec #: [id number] Deanne: 12/06/22-1839 Status: COMP Req #: [id number] Recd: 12/06/22-[address]: Albertina Bradford MD Src: Blood SpDes: Ordered: Bcult Procedure Result Verified Site Blood Culture Final 12/09/22-1625 4 OF 4 BOTTLES POSITIVE DIRECT GRAM STAIN: GRAM POSITIVE COCCI IN CHAINS SENSITIVITIES ON [id number] Organism 1 Strep agalactiae - (group b) Growth IN 4 BOTTLES Blood Culture Preliminary (changed) 12/07/22-0643 2 OF 4 BOTTLES POSITIVE DIRECT GRAM STAIN: GRAM POSITIVE COCCI CHAINS RESULTS TO FOLLOW Blood Culture Preliminary (changed) 12/06/22-1910 SPECIMEN COLLECTED Other data: CT/CT foot RT w con [id number] IMPRESSION: Soft tissue ulcer and edema in the great toe with adjacent focal periosteal reaction along the medial margin of the distal phalanx. Question osteomyelitis. There is no bone erosion to confirm osteomyelitis. MRI may provide more definitive evaluation. ? CT/[place] [id number] IMPRESSION: No acute finding. ? ? IMPRESSION: 1. ? No acute findings. 2. ? A few chronic findings above with mild hepatic steatosis. TTE: ?CONCLUSIONS ?1.? This is a technically very difficult study. ?2.? Normal left ventricular cavity size and systolic function. ?Left ventricular ejection fraction is estimated at 55-60 %.? ?This study is inadequate for estimation of regional wall motion ?normality. Grade 2 diastolic dysfunction with elevated left ?atrial pressure. ?3. Probably normal right ventricular size and systolic function. ?4. Mechanical prosthetic aortic valve in situ.? Well-seated and ?normally functioning. No aortic valve stenosis.? No significant ?valvular or perivalvular regurgitation. ?5.? No prior similar studies to compare. IRASEMA ?CONCLUSIONS ?Normal left ventricular size, systolic function and wall ?thickness, with no regional wall motion abnormalities.? EF 55% ?Normal left ventricular wall thickness. Normal diastolic filling ?pattern.? ?The right ventricle is normal in size catheter/pacemaker wire ?visualized in the right ventricle. ? No vegetations noted. ?There is no aortic regurgitation.? Prosthetic valve noted with ?normal velocities. No vegetations identified. ?No pericardial effusion A&P Assessment and plan (1) Bacteremia due to Streptococcus: (2) Aortic valve replaced: (3) Infective endocarditis: Plan 52-year-old male with a past medical history of aortic valve replacement, history of MSSA endocarditis in 2013, currently presenting with group B streptococcus bacteremia Possible explanation for the bacteremia include recent cellulitis and abscess of his right foot. Typically would expect group B strep to be associated with infections of the GI or tracts, however with a normal CT of the abdomen and pelvis and absence of symptoms relating to these systems make this a less likely possibility. Given recent sequence of events with cellulitis of the toe and then subsequent pus drainage possible that bloodstream could have been seeded during this acute infection. given patient's underlying prosthetic valve and aortic root graft, it would be important to rule out infective endocarditis or other endovascular infection. Patient's blood cultures were positive on December 06, 2022, clear as of December 09, 2022. Interim blood cultures are not available. His fever curve is now much improved. he is ysmptomatically improved. IRASEMA performed on current admission did not show any vegetations. This makes endocarditis a less likely diagnosis. However given that patient would meet modified [place] criteria for possible endocarditis with 1 major (+ blood cx with sterp) and 2 minor criteria(predisposing heart condition, fever), would recommend treating with 6 weeks of IV ceftriaxone 2 g IV daily. At the end of 6-week course we will obtain a repeat IRASEMA to make sure no vegetations have developed in the interim. follow up in ID clinic in 6 weeks weekly labs CBC, LFT, cr while on iv CTX to be faxed to ID clinic Consult Attestations Medical Necessity Statement: per admitting Coding Level of Care Code Acute Code for [facility] Diagnoses Bacteremia due to Streptococcus R78.81; B95.5 Aortic valve replaced Z95.2 Infective endocarditis I33.0
[2022-12-11] MEDS: oxyCODONE-APAP 5-325 mg Tablet 1.5 TAB PO ×6 (01:08→23:43)
[2022-12-11 05:11] LABS: Basophils # 0.1 10^3/uL (0.0-0.1); Basophils % 0.6 %; Eosinophils # 0.3 10^3/uL (0.0-0.8); Eosinophils % 3.9 %; Hematocrit 32.3 % (42.0-52.0); Hemoglobin 10.5 g/dL (11.7-16.6); Lymphocytes # 2.7 10^3/uL (0.8-4.8); Lymphocytes % 33.3 %; Mean Corpuscular HGB Conc 32.5 g/dL (30.0-36.0); Mean Corpuscular Hemoglobin 26.6 pg (28.0-34.0); Mean Platelet Volume 10.7 fL (7.4-10.4); Monocytes # 0.7 10^3/uL (0.2-0.9); Monocytes % 8.2 %; Neutrophils # 4.28 10^3/uL (1.8-7.7); Neutrophils % 53.9 %; Nucleated Red Blood Cells % 0 %; Platelet Count 325 10^3/cmm (130-400); Red Blood Count 3.94 10^6/uL (4.1-5.3); Red Cell Distribution Width 12.9 % (12.1-15.1)
[2022-12-11 05:22] LABS: INR 1.83 (0.8-1.2)
[2022-12-11 05:29] LABS: Alanine Aminotransferase 8 U/L (0-41); Albumin Level 3.1 g/dL (3.5-5.2); Alkaline Phosphatase 59 U/L (40-130); Anion Gap 12.8 (5-19); Aspartate Amino Transferase 12 U/L (0-40); Blood Urea Nitrogen 7 mg/dL (6-20); Calcium 9.3 mg/dL (8.5-10.5); Carbon Dioxide 28 mmol/L (22-29); Chloride 100 mmol/L (98-107); Globulin 4.1 g/dL (1.3-4.6); Glomerular Filtration Rate 70.3 mL/min (90-130); Glucose 182 mg/dL (65-115); Osmolality Calculated 287 mOsm/kg (285-295); Potassium 3.8 mmol/L (3.5-5.1); Sodium 137 mmol/L (136-145); Total Bilirubin 0.3 mg/dL (0.15-1.2); Total Protein 7.2 g/dL (6.6-8.7)
[2022-12-11] MEDS: pantoprazole DR 40 mg Tablet PO (05:47)
[2022-12-11 06:55] LABS: Glucose Point of Care 179 mg/dL (70-110)
[2022-12-11] MEDS: insulin lispro 100 unit/1 mL SUBCUT ×4 (08:09→21:37)
[2022-12-11] MEDS: insulin glargine 100 units/1 mL 20 UNIT SUBCUT ×2 (08:10→17:06)
[2022-12-11] MEDS: duloxetine 60 mg Capsule PO (08:10)
[2022-12-11 11:38] LABS: Glucose Point of Care 343 mg/dL (70-110)
--- NOTE | 2022-12-11 12:33 | XR_ITS ---
WS: [id number] Exam: XR chest 1V portable [id number] Date/Time of Exam: 12/11/2022 12:33 PM Reason For Exam: Post PICC insertion Comparison 12/06/2022. Right-sided PICC line has been placed and appears to end in the lower aspect of the SVC. The lungs ar e clear and fully expanded. Cardiac enlargement noted unchanged. A permanent cardiac pacer superimpos es the left chest. Signs of median sternotomy and cardiac valve replacement.. Regional bony elements are intact. XR/XR chest 1V portable [id number] IMPRESSION: 1. Right-sided PICC line appearing to end in the distal SVC. 2. Cardiac enlargement unchanged. Postoperative changes. 3. No acute process noted.
[2022-12-11 13:41] LABS: Methicillin-Resist S.aureu PCR NOT DETECTED (NOT DETECTED)
--- NOTE | 2022-12-11 13:45 | PM.PN ---
Subjective Subjective: No acute events overnight. Patient has remained hemodynamically stable. Tmax last night 100.1 Fahrenheit. Blood sugars continue to remain slightly elevated. Appreciate labs. INR 1.8 today. Otherwise patient states he is feeling better. Pain in the left leg getting better. Vitals/I&O/Wt Last Vital Signs Temp 98.2 F 12/11/22 12:00 Pulse 85 12/11/22 12:00 Resp 16 12/11/22 12:00 BP 165/99 12/11/22 12:00 Pulse Ox 96 12/11/22 12:00 O2 Del Method Room Air 12/11/22 11:10 12/10/22 12/11/22 12/11/22 22:59 06:59 14:59 Intake Total 530 / 1893.333 880 / 2773.333 480 / 480 Balance 530 / 1893.333 880 / 2773.333 480 / 480 Physical Exam Narrative: General: No acute distress, AO x3 HEENT: PERRLA, pupils bilaterally equal and reactive Chest: Normal vesicular breath sounds, no added sounds, equal good air entry bilaterally CVS: S1-S2 regular, no murmurs, no tachycardia, no gallops, no rubs Abdomen: Soft, nontender, no organomegaly, bowel sounds present Neuro: No focal deficits, no facial deformity, AO x3, power 5/5 in all limbs Data 12/11/22 04:45 12/11/22 04:45 Micro: Microbiology 12/08/22 19:00 Gram Stain - Final Sputum - Expectorated Sputum Sputum Culture - Final Tammy albicans A&P Assessment and plan (1) Bacteremia due to Streptococcus: (2) Osteomyelitis: (3) Aortic valve replaced: (4) Hyperlipidemia: (5) DM type 2 (diabetes mellitus, type 2): Check A1c. Insulin at high-dose protocol sliding scale before meals and at bedtime. Lantus 20 units at bedtime. 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 Assessment: Streptococcus bacteremia: In setting of aortic valve replacement, mechanical aortic valve, aortic root replacement, history of infective endocarditis. CT foot concerning for osteomyelitis. CRP elevated. Blood cultures from admission positive for Streptococcus agalactiae. Sensitivities awaited. Repeat blood cultures sent on 12/09. IRASEMA negative for infective endocarditis. Cannot do MRI for the given history of pacemaker implantation and mechanical aortic valve. We will consult ID and podiatry. Patient wants to continue to follow-up at [facility] with ID and podiatry going forward. Stop vancomycin. Check MRSA swab. If MRSA swab is positive will add vancomycin. Continue with Zosyn for now. Most likely can switch over to IV ceftriaxone. Patient will most likely need 6 weeks of IV antibiotics. If blood cultures negative will plan for PICC line placement. Great toe osteomyelitis: Appreciate CT foot. Will consult podiatry. Aortic valve replacement: On chronic anticoagulation with warfarin. Target INR 2-3. Pharmacy consulted for warfarin dose. Full code. Cardiac carb consistent diet. Warfarin will suffice as DVT prophylaxis Protonix for PUD prophylaxis. Plan for the day: Appreciate ID and podiatry recommendations. Continue with IV ceftriaxone. Repeat blood cultures from 12/09-remain negative. Plan for PICC line placement today. Continue with Lantus 20 units twice daily and insulin sliding scale high-dose protocol today. Blood pressure is improving. Will restart metoprolol succinate 50 mg oral today. Discharge planning: If remains hemodynamically stable within next 24 hours we will plan to discharge home on IV antibiotics with PICC line. Appreciate documentation from [facility] regarding previous hospitalization and management. Paperwork showing concerns for IgE-mediated vasculitis in the past not on any treatment currently. Concerns for Staphylococcus epidermidis bacteremia in 2019. Appreciate documentation from [facility] regarding ID from 2014. Patient had MSSA infective endocarditis in 2014. Attestations Medical Necessity Statement*: Requires further hospitalization for management of Streptococcus bacteremia in setting of aortic valve replacement and aortic root replacement while outpatient antibiotics are set up and PICC line is placed Diagnoses Bacteremia due to Streptococcus R78.81; B95.5 Osteomyelitis M86.9 Aortic valve replaced Z95.2 Hyperlipidemia E78.5 DM type 2 (diabetes mellitus, type 2) E11.9 Peripheral neuropathy G62.9 Chronic anticoagulation Z79.01 Fever R50.9 Aortic aneurysm, thoracic I71.20 IgA mediated leukocytoclastic vasculitis D69.0 Aortic stenosis I35.0
[2022-12-11 13:49] LABS: Methicillin-Resist S.aureu PCR NOT DETECTED (NOT DETECTED)
--- NOTE | 2022-12-11 14:00 | PC.NURSE ---
Single lumen PICC placed to right brachial vein without difficulty. Pt to have IV antibiotics for 6 weeks. Informed consent obtained from patient prior to procedure. Right brachial vein 6 mm, appearing to be straight and best choice for placement. Mid-arm circumference measured 10 cm from right AC 31 cm. Trimmed cath length 42 cm with 1 cm external length noted. Chest xray shows cath tip in distal SVC, in good position for use. Line secured with stat-lock and Biopatch CHG disk placed over insertion site. Report given to bedside nurseJustin.
[2022-12-11 14:30] LABS: Osmolality Serum 286 mOsm/kg (278-305)
[2022-12-11 14:30] LABS: Osmolality Urine 136 mOsm/kg (50-1200)
[2022-12-11] MEDS: metoprolol succinate ER (24 HR) 50 mg Tablet PO (14:39)
[2022-12-11] MEDS: warfarin 6 mg Tablet PO (14:40)
[2022-12-11] MEDS: cefTRIAXone 2,000 MG in sodium chloride 0.9% (plus) 50 ML 100 MG IV (14:40)
[2022-12-11 16:52] LABS: Glucose Point of Care 204 mg/dL (70-110)
[2022-12-11 21:08] LABS: Glucose Point of Care 197 mg/dL (70-110)
[2022-12-12] VITALS (8 sets, daily range): BP systolic 121–137; BP diastolic 75–87; PULSE 68–91; RESP 16–18; TEMP 36.7–37.3; O2SAT 95–97
[2022-12-12] MEDS: oxyCODONE-APAP 5-325 mg Tablet 1.5 TAB PO ×3 (03:47→13:05)
[2022-12-12 05:06] LABS: Basophils % 0.3 %; Eosinophils # 0.3 10^3/uL (0.0-0.8); Eosinophils % 3.5 %; Hematocrit 30.6 % (42.0-52.0); Hemoglobin 10.1 g/dL (11.7-16.6); Lymphocytes # 2.5 10^3/uL (0.8-4.8); Lymphocytes % 27.1 %; Mean Corpuscular Hemoglobin 26.7 pg (28.0-34.0); Mean Platelet Volume 10.4 fL (7.4-10.4); Monocytes # 0.7 10^3/uL (0.2-0.9); Neutrophils # 5.48 10^3/uL (1.8-7.7); Neutrophils % 60.8 %; Nucleated Red Blood Cells % 0 %; Platelet Count 360 10^3/cmm (130-400); Red Blood Count 3.78 10^6/uL (4.1-5.3); Red Cell Distribution Width 13.2 % (12.1-15.1)
[2022-12-12 05:32] LABS: Alanine Aminotransferase 8 U/L (0-41); Albumin Level 3.1 g/dL (3.5-5.2); Alkaline Phosphatase 59 U/L (40-130); Anion Gap 13.9 (5-19); Aspartate Amino Transferase 11 U/L (0-40); Blood Urea Nitrogen 8 mg/dL (6-20); Carbon Dioxide 25 mmol/L (22-29); Chloride 100 mmol/L (98-107); Glomerular Filtration Rate 78.5 mL/min (90-130); Glucose 287 mg/dL (65-115); Osmolality Calculated 289 mOsm/kg (285-295); Potassium 3.9 mmol/L (3.5-5.1); Sodium 135 mmol/L (136-145); Total Bilirubin 0.2 mg/dL (0.15-1.2); Total Protein 7.1 g/dL (6.6-8.7)
[2022-12-12 05:44] LABS: INR 1.83 (0.8-1.2)
[2022-12-12] MEDS: metoprolol succinate ER (24 HR) 50 mg Tablet PO (06:16)
[2022-12-12] MEDS: pantoprazole DR 40 mg Tablet PO (06:16)
[2022-12-12 06:30] LABS: Glucose Point of Care 268 mg/dL (70-110)
[2022-12-12] MEDS: duloxetine 60 mg Capsule PO (08:24)
[2022-12-12] MEDS: insulin lispro 100 unit/1 mL SUBCUT (08:25)
[2022-12-12] MEDS: insulin glargine 100 units/1 mL 20 UNIT SUBCUT (10:34)
--- NOTE | 2022-12-12 10:40 | CT_ITS ---
WS: [id number] CT ANGIOGRAM CEREBRAL AND CAROTID ARTERIES HISTORY: vision TECHNIQUE: CT angiogram is performed of the carotid and cerebral arteries. During arterial injection imaging is obtained from the skull vertex to the aortic arch in 1.25 mm imaging. Coronal and sagittal reformats are submitted. Additional multi planar reformats of the carotid and cerebral arteries are submitted, MIP imaging also reviewed. NASCET criteria utilized. [facility] CT [facility] at [facility] e at least one of these dose optimization techniques: automated exposure control; mA and/or kV adjust ment per patient size (includes targeted exams where dose is matched to clinical indication); or iter ative reconstruction. CONTRAST: Omnipaque 350; 100 mL IV. DLP: 1162.88 mGy.cm COMPARISON: None available. Noncontrast CT head: No edema, hemorrhage or mass effect. Carotid Angiogram: Right carotid: Common carotid artery: Arises normally from the innominate artery. No significant plaque or stenosis. Internal carotid artery: No plaque or stenosis. External carotid artery: Patent. Left carotid: Common carotid artery: Arises normally from the aorta. No significant plaque or stenosis. Internal carotid artery: No plaque or stenosis. External carotid artery: Patent. Right vertebral artery: Very small caliber RIGHT vertebral artery. Limited visualization may be due t o small caliber. Distally not visualized. Left vertebral artery: Dominant LEFT vertebral artery with no occlusion or obstruction. Subclavian arteries: No stenosis or significant abnormality. Upper thorax: Dependent changes and respiratory motion artifact. Coronary artery calcifications. Prio r CABG. Thyroid gland: Subcentimeter LEFT thyroid nodule. Osseous structures: Unremarkable. CEREBRAL ANGIOGRAM: Intracranial vertebral arteries: Very small caliber and probably occluded distal RIGHT vertebral [place] ry. Dominant LEFT vertebral artery. Basilar artery: No significant stenosis or occlusion. No aneurysm. Intracranial Internal carotid arteries: Demonstrates no significant stenosis or plaque. Middle cerebral arteries: Normal. Anterior cerebral arteries and ACOM: Normal. Posterior cerebral arteries and PCOM's: Normal. Dural venous sinuses are normally enhancing. CT/CT angio headneck* [id number]/[id number] IMPRESSION: 1. Normal carotid arteries. 2. Unremarkable [place]. 3. Diffusely very small caliber RIGHT vertebral artery may be occluded distall y. Dominant LEFT vertebral artery. Small caliber RIGHT vertebral artery may be congenital.
[2022-12-12] MEDS: iohexol 350 mg/mL 500 mL Btl (per mL) IV (11:22)
[2022-12-12 12:00] LABS: Glucose Point of Care 132 mg/dL (70-110)
--- NOTE | 2022-12-12 12:30 | PM.DCS ---
Discharge Providers Date of Admission: 12/06/22 22:37 Date of Discharge: December 12, 2022 Attending Provider at Admission: Cris Zhong MD Attending Provider at Discharge: Riaz Hanna MD Consults: Cardiology: Dr. Alexandra Podiatry: Dr. Mcmahan Infectious disease: Dr. mcdonough Primary Care Provider: Rogers Canseco DO Diagnoses at Discharge Discharge Diagnosis (1) Bacteremia due to Streptococcus: Status: Acute (2) Osteomyelitis: Status: Acute (3) Aortic valve replaced: Status: Acute (4) Hyperlipidemia: Status: Acute (5) DM type 2 (diabetes mellitus, type 2): Status: Acute (6) Peripheral neuropathy: Status: Acute (7) Chronic anticoagulation: Status: Acute (8) Fever: Status: Acute (9) Aortic aneurysm, thoracic: Status: Chronic Permanent problem details: sp Repair (10) IgA mediated leukocytoclastic vasculitis: Status: Acute (11) Aortic stenosis: Status: Acute Permanent problem details: sp Prosthetic AVR Reason for Visit Reason for Visit: flu like symptoms Brief History: History as per HPI: Corby Spaulding is a 52 year old male with past medical history of diabetic foot ulcer, hyperlipidemia, hypertension, aortic stenosis status post aortic valve replacement with mechanical aortic valve, 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 Patient has a history of 3 open heart surgeries for aortic valve and has had endocarditis before and he feels like this time he has gotten the same thing.? 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 Shortly thereafter after 1 year he got endocarditis.? His property management intern is Dr. Shahab Olson at [facility].? All his records are there.? He has been having fevers that are mainly high at evening/nighttime 102.2 for the last 3 days.? He is also complaining of joint pains headaches body aches and nausea.? He has also had some loose stool episodes as well however that has resolved by this point..? He follows a dredging inspector in [place] Hodgson for his diabetic foot ulcer which apparently has gotten better compared to before.? He contacted his doctor and showed him pictures of his ulcer and was advised to go to the nearest ER for evaluation of his feet there.? He has been having chills night sweats and pain in his joints.? He feels generally tired fatigued and malaised.? He also feels slightly weak.? Patient states that he has been having hematuria which is also new for him.? He is only had one other time in the past.? He states ever since he was diagnosed with a vasculitis and electrolyte appropriate he has not had a flareup.? He does complain of pelvic pain and suprapubic pain at this time.? Does not have any dysuria or burning.? He is unsure if he has a UTI or not.? He has been having chills and a fever for last few days.? He states he was planning to go camping however has not gone so yet.? [place] did have a tick bite however he removed it shortly thereafter.? He does not recall any other tick bites or rashes on his body. ED course: Blood pressure 122/71, respiratory 16, pulse 91, temperature 99.7, saturating 96% on room air.? Blood cultures were obtained and he was started on IV antibiotics vancomycin and cefepime.? Chest x-ray shows cardiomegaly pacemaker and sternotomy wires.? WBC 8.2, hemoglobin 12.3, platelets 222, sodium 124, potassium 4.0, creatinine 1.2, osmolality 267, lactic acid 3.2 initially however repeat was 1.4, UA positive for 2+ blood, 80-100 RBCs, WBC 40-55, no bacteria, 1+ mucus.? COVID and influenza are negative. Hospital Course Hospital Course Patient was admitted to the hospital for evaluation and management of fever of unknown origin with concerns for bacterial endocarditis in setting of replaced aortic valve and root of thoracic aorta. He was started on broad-spectrum antibiotics. On admission patient was also found to be in acute kidney injury along with hyponatremia for which she received IV fluids. During culture from admission came back positive for Streptococcus. IRASEMA was done which ruled out any obvious vegetation on aortic valve, normal functioning mechanical aortic valve prosthesis. Patient did have a wound on her right great toe for which CT foot was done and was a concern for osteomyelitis. Patient also seen by dredging inspector today hospitalization. Patient did complain of occasional blurriness of movement in the right eye on and off for last 3 days on the day of discharge without any ocular pain or discharge, headache for which CTA head and neck was done and was negative for any acute thromboembolic event. Given his history of IgA vasculitis there is a concern for vasculitis for which she is to follow-up with ophthalmology as an outpatient. Given significant valvular cardiac history with positive blood cultures and a history of infective endocarditis in the past ID was consulted and decision was made to treat him with IV antibiotics for 6 weeks. Antibiotics were tailored as per culture sensitivities. He will be discharged in hemodynamically stable condition on IV ceftriaxone 2 g daily for next 6 weeks with advised to follow-up with ophthalmology, podiatry, ID as an outpatient and set appointments. He is also to follow-up with primary care provider within next 1 week. He is to have CBC, liver function test, serum creatinine checked weekly while being on antibiotics. Physical Exam Narrative: General: No acute distress, AO x3 HEENT: PERRLA, pupils bilaterally equal and reactive Chest: Normal vesicular breath sounds, no added sounds, equal good air entry bilaterally CVS: S1-S2 regular, no murmurs, no tachycardia, no gallops, no rubs Abdomen: Soft, nontender, no organomegaly, bowel sounds present Neuro: No focal deficits, no facial deformity, AO x3, power 5/5 in all limbs Discharge Data Studies Completed and Pending Completed Studies During Hospitalization Category Date Time Status CT angio head neck [CT angio headneck* [id number]] Cat Scan 12/12/22 10:[address] chest abdomen pelvis [[place] [id number] Cat Scan 12/06/22 23:55 Completed ] Urgent CT foot RT w con [id number] Routine Cat Scan 12/08/22 10:23 Completed CXRP [XR chest 1V portable [id number]] Routine Exams 12/11/22 12:33 Completed XR chest 1V portable [id number] Stat Exams 12/06/22 18:12 Completed XR foot LT 2V [id number] Routine Exams 12/10/22 10:46 Completed CV. echo complete* [id number] Routine Ultrasound 12/07/22 23:54 Completed Schedule for IRASEMA [CV request echo IRASEMA bedside] Routine Ultrasound 12/09/22 10:00 Completed Pending at discharge Category Date Time Status Blood Culture Routine Lab 12/09/22 05:19 Results Complete Blood Count w/Auto AM LABS Lab 12/13/22 04:00 Ordered Comprehensive Metabolic Panel AM LABS Lab 12/13/22 04:00 Ordered Miscellaneous Test Routine Lab 12/08/22 09:50 Received OVA and Parasites, Conc and PE Routine Lab 12/08/22 09:50 Received Prothrombin Time INR AM LABS Lab 12/13/22 04:00 Ordered Radiology Impressions Chest/Abdomen/Pelvis CT 12/06/22 23:55 IMPRESSION: No acute finding. IMPRESSION: 1. No acute findings. 2. A few chronic findings above with mild hepatic steatosis. Foot CT 12/08/22 10:23 IMPRESSION: Soft tissue ulcer and edema in the great toe with adjacent focal periosteal reaction along the medial margin of the distal phalanx. Question osteomyelitis. There is no bone erosion to confirm osteomyelitis. MRI may provide more definitive evaluation. Foot X-Ray 12/10/22 10:46 IMPRESSION: 1. No acute fracture or bone destruction. Chest X-Ray 12/11/22 12:33 IMPRESSION: 1. Right-sided PICC line appearing to end in the distal SVC. 2. Cardiac enlargement unchanged. Postoperative changes. 3. No acute process noted. Head/Neck CTA 12/12/22 10:40 IMPRESSION: 1. Normal carotid arteries. 2. Unremarkable [place]. 3. Diffusely very small caliber RIGHT vertebral artery may be occluded distally. Dominant LEFT vertebral artery. Small caliber RIGHT vertebral artery may be congenital. Echocardiogram: ?CONCLUSIONS ?Normal left ventricular size, systolic function and mild LVH, ?with no regional wall motion abnormalities.? Normal left ?ventricular wall thickness. Normal diastolic filling pattern.? ?EF 65% no significant valve abnormalities. ?No significant chamber abnormalities. ?Technically limited study. ?Prosthethic valve in aortic position, poorly visualized. Aortic ?velocities appear to be normal for this valve type ?Pacer lead noted in place ?Mingo Alexandra MD ?(Electronically Signed) ?Final Date:? ? ? 07 Dec 2022 16:14 S Microbiology 12/08/22 19:00 Sputum - Expectorated Sputum Gram Stain - Final 12/08/22 19:00 Sputum - Expectorated Sputum Sputum Culture - Final Tammy albicans 12/09/22 05:19 Blood Blood Culture - Preliminary NEGATIVE TO DATE 12/09/22 05:10 Blood Blood Culture - Preliminary NEGATIVE TO DATE 12/06/22 18:40 Blood Blood Culture - Final Strep agalactiae - (group b) 12/06/22 18:45 Blood Blood Culture - Final Strep agalactiae - (group b) 12/06/22 16:45 Urine,Clean Catch Urine Culture - Final Laboratory Results WBC 9.0 10^3/uL (4.0-10.0) 12/12/22 04:34 RBC 3.78 10^6/uL (4.1-5.3) L 12/12/22 04:34 Hgb 10.1 g/dL (11.7-16.6) L 12/12/22 04:34 Hct 30.6 % (42.0-52.0) L 12/12/22 04:34 MCV 81.0 fl (80-94) 12/12/22 04:34 MCH 26.7 pg (28.0-34.0) L 12/12/22 04:34 MCHC 33.0 g/dL (30.0-36.0) 12/12/22 04:34 RDW 13.2 % (12.1-15.1) 12/12/22 04:34 Plt Count 360 10^3/cmm (130-400) 12/12/22 04:34 MPV 10.4 fL (7.4-10.4) 12/12/22 04:34 Neut % (Auto) 60.8 % 12/12/22 04:34 Lymph % (Auto) 27.1 % 12/12/22 04:34 [place] % (Auto) 8.0 % 12/12/22 04:34 Eos % (Auto) 3.5 % 12/12/22 04:34 Baso % (Auto) 0.3 % 12/12/22 04:34 Neut # (Auto) 5.48 10^3/uL (1.8-7.7) 12/12/22 04:34 Lymph # (Auto) 2.5 10^3/uL (0.8-4.8) 12/12/22 04:34 [place] # (Auto) 0.7 10^3/uL (0.2-0.9) 12/12/22 04:34 Eos # (Auto) 0.3 10^3/uL (0.0-0.8) 12/12/22 04:34 Baso # (Auto) 0.0 10^3/uL (0.0-0.1) 12/12/22 04:34 Nucleated RBC % (auto) 0 % 12/12/22 04:34 Nucleated RBCs # 0.0 /100WBC 12/12/22 04:34 ESR 24 mm/hr (0-10) H 12/08/22 05:00 PT 21.80 SECONDS (12.1-14.9) H 12/12/22 04:34 INR 1.83 (0.8-1.2) H 12/12/22 04:34 Sodium 135 mmol/L (136-145) L 12/12/22 04:34 Potassium 3.9 mmol/L (3.5-5.1) 12/12/22 04:34 Chloride 100 mmol/L (98-107) 12/12/22 04:34 Carbon Dioxide 25 mmol/L (22-29) 12/12/22 04:34 Anion Gap 13.9 (5-19) 12/12/22 04:34 BUN 8 mg/dL (6-20) 12/12/22 04:34 Creatinine 1.0 mg/dL (0.7-1.2) 12/12/22 04:34 GFR Calculation 78.5 mL/min (90-130) L 12/12/22 04:34 Glucose 287 mg/dL (65-115) H 12/12/22 04:34 POC Glucose 132 mg/dL (70-110) H 12/12/22 11:56 Estimat Average Glucose 229 12/10/22 05:46 Hemoglobin A1c 9.6 % (4.0-6.0) H 12/10/22 05:46 Serum Osmolality 286 mOsm/kg (278-305) 12/08/22 05:00 Calculated Osmolality 289 mOsm/kg (285-295) 12/12/22 04:34 Lactic Acid 3.2 mmol/L (0.5-2.2) H 12/06/22 18:40 Lactic Acid (Sepsis) 1.4 mmol/L (0.5-2.2) 12/06/22 21:18 Calcium 9.0 mg/dL (8.5-10.5) 12/12/22 04:34 Magnesium 1.1 mg/dL (1.7-2.3) L 12/07/22 05:12 Iron 30 ug/dL (59-158) L 12/09/22 05:10 TIBC 233 mcg/dl 12/09/22 05:10 % Saturation 12.8 % (20-50) L 12/09/22 05:10 Unsat Iron Binding 203 ug/dL (112-347) 12/09/22 05:10 Total Bilirubin 0.2 mg/dL (0.15-1.2) 12/12/22 04:34 AST 11 U/L (0-40) 12/12/22 04:34 ALT 8 U/L (0-41) 12/12/22 04:34 Alkaline Phosphatase 59 U/L (40-130) 12/12/22 04:34 C-Reactive Protein 127.3 mg/L (0.0-4.9) H 12/08/22 05:00 Total Protein 7.1 g/dL (6.6-8.7) 12/12/22 04:34 Albumin 3.1 g/dL (3.5-5.2) L 12/12/22 04:34 Globulin 4.0 g/dL (1.3-4.6) 12/12/22 04:34 Triglycerides 204 mg/dL (0-150) H 12/10/22 05:46 Cholesterol 165 mg/dL (0-200) 12/10/22 05:46 LDL Cholesterol, Calc 103 mg/dL (50-129) 12/10/22 05:46 Total VLDL Cholesterol 41 mg/dL (0-30) H 12/10/22 05:46 HDL Cholesterol 21 mg/dL (60-100) L 12/10/22 05:46 Cholesterol/HDL Ratio 7.86 mg/dL (1.0-5.00) H 12/10/22 05:46 Vitamin B12 550 pg/mL (232-1245) 12/09/22 05:10 Folate 6.3 ng/mL (4.5-32.2) 12/10/22 05:46 Procalcitonin 12.09 ng/mL (0-0.5) H 12/08/22 05:00 TSH 0.98 uIU/mL (0.27-4.20) 12/09/22 05:10 Random Cortisol 7.52 ug/dL (2.47-19.5) 12/08/22 05:00 Urine Color Yellow (Yellow) 12/06/22 16:45 Urine Appearance Cloudy (CLEAR) A 12/06/22 16:45 Urine pH 5 (5-7) 12/06/22 16:45 Ur Specific [place] 1.010 (1.005-1.030) 12/06/22 16:45 Urine Protein 3+ (Negative) H 12/06/22 16:45 Urine Glucose (UA) 4+ (Normal) H 12/06/22 16:45 Urine Ketones Negative (Negative) 12/06/22 16:45 Urine Blood 3+ (Negative) H 12/06/22 16:45 Urine Nitrate Negative (Negative) 12/06/22 16:45 Urine Bilirubin Neg (Negative) 12/06/22 16:45 Urine Urobilinogen Norm mg/dL (Negative) 12/06/22 16:45 Ur Leukocyte Esterase Negative (Negative) 12/06/22 16:45 Urine RBC 80-100 /hpf (0-2) H 12/06/22 16:45 Urine WBC 40-55 /hpf (0-5) H 12/06/22 16:45 Ur Squamous Epith Cells 0-4 /hpf (0-5) H 12/06/22 16:45 Amorphous Sediment Not Reportable 12/06/22 16:45 Urine Bacteria None /hpf (NONE) 12/06/22 16:45 Urine Mucus 1+ /hpf 12/06/22 16:45 Urine Osmolality 136 mOsm/kg (50-1200) 12/08/22 01:14 Ur Random Sodium 19 mmol/L 12/08/22 01:14 Ur Random Chloride 15 mmol/L 12/08/22 01:14 Influenza Type A Ag negative (Negative) 12/06/22 18:30 Influenza Type B Ag negative (Negative) 12/06/22 18:30 SARS-CoV-2 Ag (Rapid) Negative (Negative) 12/06/22 20:30 MRSA (PCR) Not detected (NOT DETECTED) 12/09/22 14:00 Vitals Last Vital Signs Temp 98.0 F 12/12/22 12:00 Pulse 68 12/12/22 12:00 Resp 18 12/12/22 12:00 BP 137/87 12/12/22 12:00 Pulse Ox 95 12/12/22 12:00 O2 Del Method Room Air 12/12/22 12:00 Discharge Plan Discharge Patient Disposition: Home Health Service Condition: Stable Prescriptions: Continued duloxetine 60 mg capsule,delayed release(DR/EC) 60 mg PO DAILY Qty: 30 3RF tadalafil 20 mg tablet 20 mg PO DAILY PRN (Reason: sexual activity) Qty: 20 12RF Rx Instructions: Take approx 30min before intercourse;no more than 1 dose per 24hrs; NO NITROGLYCERIN (DME) Dexcom G6 Special Education Secretary Misc See Rx Instructions .ROUTE .MEDSUPPLY Qty: 1 0RF Rx Instructions: As directed (DME) Dexcom G6 Sensor Device See Rx Instructions .ROUTE .MEDSUPPLY Qty: 3 11RF Rx Instructions: As directed (DME) Dexcom G6 Transmitter Device See Rx Instructions .ROUTE .MEDSUPPLY Qty: 1 11RF Rx Instructions: As directed pantoprazole 40 mg tablet,delayed release (DR/EC) 40 mg PO DAILY@06 Qty: 90 2RF Rx Instructions: 340B alprazolam [Xanax] 0.5 mg Tablet 0.5 mg PO BID PRN (Reason: Anxiety) metoprolol succinate 50 mg tablet extended release 24 hr 50 mg PO DAILY@06 Rx Instructions: 340B warfarin 4 mg tablet 6 mg PO DAILY Rx Instructions: 340B PLAN (see pharmacy comment) oxycodone-acetaminophen 7.5-325 mg Tablet 1 tab PO Q4H PRN (Reason: Pain) Changed [place] 100/33 100 unit-33 mcg/mL Insulin Pen 25 unit SUBCUT BID Qty: 15 0RF Held furosemide 40 mg tablet 20 mg PO DAILY PRN (Reason: Edema) Hold Instructions: Resume on 12/19/22. Rx Instructions: 340 b Discharge Orders: Discharge Order (Routine); Ordered 12/12/22 Ordered By: Riaz Hanna Referrals: Avery oCok MD [Physician] - 7-10 days (Central visual loss in the right eye) Rogers Canseco DO [Primary Care Provider] - 7-10 days [facility] [Provider Group] - 1 month Silvina Mcdonough MD [Hospitalist] - 1 month Discharge Diet: Cardiac and Diabetic Discharge Activity: Resume usual activity and Increase activity as tolerated Patient Instructions: Opioid Safety Activity Restrictions/Additional Instructions: You will be on IV ceftriaxone 2 g daily for next 6 weeks. Please follow-up with ID clinic as directed. Please follow-up with Dr. Cook from ophthalmology within next 1 week for further evaluation of blurriness of your vision on the right eye. You should follow-up with a primary care provider within next 1 week. Please follow-up with rheumatology for longstanding IgA vasculitis at the earliest. While being on antibiotics you should get CBC, liver function tests along with serum creatinine weekly. Weekly PICC line dressing changes. PICC line should be removed after completion of IV antibiotic course. Discharge Attestations Time Spent in Discharge Care*: greater than 30 min Specific Discharge Activities: educating patient, educating and/or supporting family/caregiver, discussing with pcp/other providers, discussing with correctional case records supervisor/social workers/dc planners, documenting/other paperwork and evaluating patient/reviewing data Status at Discharge: Cognitive status at discharge: cognitively intact, Behavioral status at discharge: cooperative, Functional status at discharge: independent ambulation, Overall status at discharge: patient is progressing back to baseline Quality Metrics Clinical Quality Measures [ No reported AMI, CVA or VTE this stay] Coding Level of Care Code 31062 Total time (in minutes) for Discharge: 60 Diagnoses Bacteremia due to Streptococcus R78.81; B95.5 Osteomyelitis M86.9 Aortic valve replaced Z95.2 Hyperlipidemia E78.5 DM type 2 (diabetes mellitus, type 2) E11.9 Peripheral neuropathy G62.9 Chronic anticoagulation Z79.01 Fever R50.9 Aortic aneurysm, thoracic I71.20 IgA mediated leukocytoclastic vasculitis D69.0 Aortic stenosis I35.0
[2022-12-12] MEDS: cefTRIAXone 2,000 MG in sodium chloride 0.9% (plus) 50 ML 100 MG IV (13:04)
[2022-12-12] MEDS: warfarin 5 mg Tablet PO (13:46)
[2022-12-19 11:54] LABS: Miscellaneous Test SEE COMMENTS
== END 2022-12-12 13:55 | disposition home health service (06) | DRG 289 ==
LOC: ER 22:43 → MEDSURG 22:51
PROVIDERS: Emergency Medicine; Internal Medicine; Admitting Provider Internal Medicine; Emergency Provider Family Medicine; PCP Family Medicine; Visit Provider Student in an Organized Health Care Education/Training Program
DX: I33.0 Acute and subacute infective endocarditis (principal); D69.0 Allergic purpura; E87.1 Hypo-osmolality and hyponatremia; I13.0 Hypertensive heart and chronic kidney disease with heart failure and stage 1 through stage 4 chronic kidney disease, or unspecified chronic kidney disease; I50.32 Chronic diastolic (congestive) heart failure; N17.9 Acute kidney failure, unspecified; B95.1 Streptococcus, group B, as the cause of diseases classified elsewhere; E78.5 Hyperlipidemia, unspecified; N18.9 Chronic kidney disease, unspecified; E11.22 Type 2 diabetes mellitus with diabetic chronic kidney disease; I35.0 Nonrheumatic aortic (valve) stenosis; Z95.2 Presence of prosthetic heart valve; I49.5 Sick sinus syndrome; E11.621 Type 2 diabetes mellitus with foot ulcer; L97.522 Non-pressure chronic ulcer of other part of left foot with fat layer exposed; E11.42 Type 2 diabetes mellitus with diabetic polyneuropathy; Z79.891 Long term (current) use of opiate analgesic; Z79.01 Long term (current) use of anticoagulants; R31.29 Other microscopic hematuria; Z95.0 Presence of cardiac pacemaker
CPT/HCPCS: 36415; 36416; 36569; 70496; 70498; 71045; 71250; 73620; 73701; 74176; 80053; 80061; 81001; 82436; 82533; 82607; 82746; 82962; 83036; 83540; 83550; 83605; 83735; 83930; 83935; 84145; 84295; 84300; 84443; 85025; 85610; 85651; 86140; 87040; 87045; 87070; 87077; 87086; 87150; 87177; 87186; 87205; 87209; 87426; 87427; 87449; 87641; 87804; 93306; 96365; 96372; 99285; J0692; J0696; J1815; J2543; J2704; J3370; J3475; J7030; J7040; J7050; Q9967